=== PATIENT | female | born 1995 | race Caucasian/White ===

== ENCOUNTER 2018-01-20 07:10 | Emergency (ER) | payer MEDICAID, SELFPAY ==
[2018-01-20 07:11] VITALS: BP 114/70; PULSE 82; RESP 14; TEMP 36.8; O2SAT 97; BMI 20.8
[2018-01-20 07:41] LABS: Absolute Lymphocyte Count 1.42 X10^3/ul (0.83-4.51); Absolute Neutrophil Count 6.2 X10^3/uL (2.0-7.7); Basophil# 0.02 X10^3/uL; Basophil% 0.2 % (0-1); Eosinophil# 0.04 X10^3/uL; Eosinophils% 0.5 % (0-5); Hematocrit 41.7 % (37-47); Hemoglobin 13.7 g/dl (12.0-15.0); Lymphocyte # 1.42 X10^3/ul (4.0); Lymphocyte % 16.6 % (19-41); Mean Corp Hgb Conc 32.9 g/gl (32-36); Mean Corpuscular Hgb 29.4 pg (27.0-32.0); Mean Corpuscular Volume 89.5 fL (81-99); Mean Platelet Vol. 8.7 fl (6.2-12.0); Monocyte# 0.84 X10^3/uL; Monocyte% 9.8 % (0-10); Neutrophil # 6.23 X10^3/uL (2.7-7.7); Neutrophil % 72.8 % (47-70); POSITIVE COUNT NO; POSITIVE DIFFERENTIAL NO; POSITIVE MORPHOLOGY NO; Platelet Count 252 K/mm3 (150-450); RBC Distribution Width CV 13.6 % (11.6-14.6); Red Blood Count 4.66 M/mm3 (4.2-5.4); White Blood Count 8.6 K/mm3 (4.4-11.0)
[2018-01-20 07:53] LABS: Anion Gap 6 (5-15); BUN 9 mg/dL (7-18); BUN/Creat Ratio 18.5 RATIO (10-20); Calcium,Total 8.4 mg/dL (8.5-10.1); Chloride 105 mmol/L (98-107); Creatinine, Serum 0.49 mg/dL (0.55-1.02); EST Glomerular Filtration Rate 166 mL/min (>60); Est Glom Filt Rate - Afr Amer 200 mL/min (>60); Estimated Creatinine Clearance 159.02 ml/min; Glucose 83 mg/dL (74-106); Potassium 3.6 mmol/L (3.5-5.1); Sodium Level 139 mmol/L (136-145)
[2018-01-20 08:15] LABS: Partial Thromboplast Time 30.1 Seconds (24.1-36.2); Prothrombin Time (Protime)PT. 13.5 SECONDS (11.7-14.9)
--- NOTE | 2018-01-20 08:57 | ED.VISSUMM ---
- ER Visit Summary Date of Service: 01/20/18 Chief Complaint: Abdominal pain, bruising easily and metallic taste History of Present Illness: The patient is a 22 F who presents with cramping abdominal pain for the past several days. Pain was worse last evening early this morning. The pain was associated with nausea without vomiting, diarrhea or constipation. She denies any black or maroon stool. She denies dysuria, frequency, urgency or hematuria. She denies any food intolerance. There is no history of IBS or IBD. She denies mucus or blood in her stool. She is presently on no medication. She also reports bruising easily. There is no known history of trauma. She does not have a primary care physician. 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 She denies fever, chills or night sweats. She denies weight gain or weight loss. She denies any change in vision, double vision or loss of vision. She denies earache, runny nose, postnasal drainage or sore throat. She denies any chest pain, palpitations or rapid heart rate. She denies shortness of breath, cough, dyspnea on exertion or orthopnea. She denies dysuria, frequency, urgency hematuria. She denies myalgias, arthralgias or neck or back pain. She denies rash. She denies headache, paresthesia, anesthesia or motor weakness. She denies any allergic type symptoms. Physical Examination: Patient is a pleasant 22-year-old woman who appears in no distress. Vital signs are normal. She is afebrile. Head is atraumatic normocephalic. Pupils are equal round reactive. Extraocular muscles are intact. TMs are pearly white with landmarks noted. Nares patent with no drainage. Posterior pharynx without erythema or exudate. Uvula is midline. There is no dysphonia or dysphasia. Trachea is midline. There is no stridor with auscultation of the neck. Heart is regular without murmur, gallop or rub. S1 and S2 are normal. Lungs are clear to auscultation with good movement of air bilaterally. Abdomen is soft and nontender. There is no guarding or peritoneal findings. There is no palpable pulsatile mass. There is no abdominal bruit. Rodriguez sign is negative. Negative Rovsing sign. There is no evidence of inguinal or umbilical hernia. She does have an umbilical piercing. She is tanned and there is no pagan line noted. She is alert oriented with a nonfocal neurologic exam. She does have several bruises lower extremity, upper extremity and gluteal region. Test Results: CBC is unremarkable and specifically platelet count. PT PTT are normal. Because of vague abdominal pain and back that she is tanned and has not been a tanning elizondo electrode panel was obtained looking for evidence of hyponatremia/hyperkalemia. Emergency Department Course and Treatment: To evaluate her bruising easily CBC and coags were obtained. Treatment Plan: Instructed to follow-up her her doctor that was assigned to her by [facility], her insurance carrier. Disposition: Discharged to home with appropriate home-going instruction and outpatient follow-up Impression: 1. Abdominal pain of unknown etiology 2. Bruising unknown etiology 3. Metallic taste This note was generated with [employer] dictation software. It may contain incorrect words, spelling, and punctuation that were not noted in review of the chart prior to signing ED Disposition - Plan for ED Patient: Disposition: Home or Assisted Living Chief Complaint: General Illness Instructions: ED Abdominal Pain Unkn Cause Referrals: Care Physician,No Primary [Primary Care Provider] - Additional Instructions: Contact the physician that is on your insurance card. You should follow-up in 3-5 days if there is no improvement.
--- NOTE | 2018-01-20 09:05 | ED.DCSUM_ITS ---
- ER Visit Summary Date of Service: 01/20/18 Chief Complaint: Abdominal pain, bruising easily and metallic taste History of Present Illness: The patient is a 22 F who presents with cramping abdominal pain for the past several days. Pain was worse last evening early this morning. The pain was associated with nausea without vomiting, diarrhea or constipation. She denies any black or maroon stool. She denies dysuria, frequency, urgency or hematuria. She denies any food intolerance. There is no history of IBS or IBD. She denies mucus or blood in her stool. She is presently on no medication. She also reports bruising easily. There is no known history of trauma. She does not have a primary care physician. 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 She denies fever, chills or night sweats. She denies weight gain or weight loss. She denies any change in vision, double vision or loss of vision. She denies earache, runny nose, postnasal drainage or sore throat. She denies any chest pain, palpitations or rapid heart rate. She denies shortness of breath, cough, dyspnea on exertion or orthopnea. She denies dysuria, frequency, urgency hematuria. She denies myalgias, arthralgias or neck or back pain. She denies rash. She denies headache, paresthesia, anesthesia or motor weakness. She denies any allergic type symptoms. Physical Examination: Patient is a pleasant 22-year-old woman who appears in no distress. Vital signs are normal. She is afebrile. Head is atraumatic normocephalic. Pupils are equal round reactive. Extraocular muscles are intact. TMs are pearly white with landmarks noted. Nares patent with no drainage. Posterior pharynx without erythema or exudate. Uvula is midline. There is no dysphonia or dysphasia. Trachea is midline. There is no stridor with auscultation of the neck. Heart is regular without murmur, gallop or rub. S1 and S2 are normal. Lungs are clear to auscultation with good movement of air bilaterally. Abdomen is soft and nontender. There is no guarding or peritoneal findings. There is no palpable pulsatile mass. There is no abdominal bruit. Rodriguez sign is negative. Negative Rovsing sign. There is no evidence of inguinal or umbilical hernia. She does have an umbilical piercing. She is tanned and there is no pagan line noted. She is alert oriented with a nonfocal neurologic exam. She does have several bruises lower extremity, upper extremity and gluteal region. Test Results: CBC is unremarkable and specifically platelet count. PT PTT are normal. Because of vague abdominal pain and back that she is tanned and has not been a tanning elizondo electrode panel was obtained looking for evidence of hyponatremia/hyperkalemia. Emergency Department Course and Treatment: To evaluate her bruising easily CBC and coags were obtained. Treatment Plan: Instructed to follow-up her her doctor that was assigned to her by [facility], her insurance carrier. Disposition: Discharged to home with appropriate home-going instruction and outpatient follow-up Impression: 1. Abdominal pain of unknown etiology 2. Bruising unknown etiology 3. Metallic taste This note was generated with [employer] dictation software. It may contain incorrect words, spelling, and punctuation that were not noted in review of the chart prior to signing ED Disposition - Plan for ED Patient: Disposition: Home or Assisted Living Chief Complaint: General Illness Instructions: ED Abdominal Pain Unkn Cause Referrals: Care Physician,No Primary [Primary Care Provider] - Additional Instructions: Contact the physician that is on your insurance card. You should follow-up in 3 -5 days if there is no improvement.
[2018-01-20 09:26] VITALS: BP 113/76; PULSE 83; RESP 14; O2SAT 99
== END 2018-01-20 09:32 | disposition home or self-care (01) ==
PROVIDERS: Emergency Provider Emergency Medicine
DX: R10.9 Unspecified abdominal pain (principal); R43.8 Other disturbances of smell and taste; R23.3 Spontaneous ecchymoses
CPT/HCPCS: 80048; 85025; 85610; 85730; 99283; A4216

== ENCOUNTER → 2018-04-13 09:20 | Outpatient (CLI) | payer MEDICAID, SELFPAY ==
[2018-04-13 11:25] LABS: hCG Titer Quant., Serum < 1 mIU/mL (<9 non-preg)
[2018-04-13 15:49] LABS: Neisserai gonorrhoeae by PCR Negative (Negative); Probe Check PASS
[2018-04-13 15:51] LABS: Chlamydia Trachomatis by PCR POSITIVE (Negative)
[2018-04-14 09:29] LABS: HIV - WCH Non-Reactive (Nonreactive)
[2018-04-15 10:11] LABS: HEPATITIS B SURFACE AG Negative (Negative); Hep C Antibodies <0.1 s/co ratio (0.0-0.9)
== END ==
PROVIDERS: Visit Provider Obstetrics & Gynecology
DX: Z11.3 Encounter for screening for infections with a predominantly sexual mode of transmission (principal)
CPT/HCPCS: 36415; 84702; 86703; 86803; 87340; 87491; 87591

== ENCOUNTER 2018-04-14 05:44 | Emergency (ER) | payer MEDICAID, SELFPAY ==
[2018-04-14] VITALS (9 sets, daily range): BP systolic 90–113; BP diastolic 48–97; PULSE 57–87; RESP 14–20; TEMP 36; O2SAT 97–100; BMI 22.8
--- NOTE | 2018-04-14 06:18 | EKG12_ITS ---
Test Reason : CP Blood Pressure : / mmHG Vent. Rate : 051 BPM Atrial Rate : 051 BPM P-R Int : 162 ms QRS Dur : 082 ms QT Int : 476 ms P-R-T Axes : 057 068 068 degrees QTc Int : 438 ms Sinus bradycardia with sinus arrhythmia Abnormal ECG Confirmed by NING MCCLURE ([id number]), school photograph editor MERCEDEZ RANDALL ([id number]) on 04/26/2018 5:43:27 PM Referred By: KOJO Confirmed By:NING MCCLURE
--- NOTE | 2018-04-14 06:18 | RAD_ITS ---
STUDY: X-RAY CHEST REASON FOR EXAM: Female, 22 years old. Chest pain, dizziness x3 hours TECHNIQUE: PA and lateral views of the chest. COMPARISON: None. FINDINGS: Minor atelectasis versus focal bronchial prominence in the right base on frontal view only, not visualized on lateral view. There is no demonstrated pleural abnormality. Normal size heart. Normal mediastinum and johnnie. Normal visualized pulmonary arteries. Normal visualized aortic arch and descending thoracic aorta. Normal visualized thoracic spine. Normal visualized ribs, clavicles, and shoulders. There is no demonstrated abnormality of the visualized soft tissue structures of the upper abdomen. RAD/Chest PA and Lateral IMPRESSION: Atelectasis of focal bronchial inflammation right base. Electronically Signed: Divina Zeng MD at 7:32 EDT , Service support ,
[2018-04-14] MEDS: Aspirin 81 MG TAB.CHEW 324 MG PO (06:29)
[2018-04-14 06:42] LABS: Absolute Lymphocyte Count 2.16 X10^3/ul (0.83-4.51); Absolute Neutrophil Count 7.9 X10^3/uL (2.0-7.7); Basophil# 0.03 X10^3/uL; Basophil% 0.3 % (0-1); Eosinophil# 0.12 X10^3/uL; Eosinophils% 1.1 % (0-5); Hematocrit 39.6 % (37-47); Hemoglobin 13.3 g/dl (12.0-15.0); Lymphocyte # 2.16 X10^3/ul (4.0); Lymphocyte % 19.4 % (19-41); Mean Corp Hgb Conc 33.6 g/gl (32-36); Mean Corpuscular Hgb 29.6 pg (27.0-32.0); Mean Corpuscular Volume 88.2 fL (81-99); Mean Platelet Vol. 9.1 fl (6.2-12.0); Monocyte# 0.89 X10^3/uL; Neutrophil # 7.94 X10^3/uL (2.7-7.7); Platelet Count 297 K/mm3 (150-450); RBC Distribution Width CV 12.7 % (11.6-14.6); RBC Distribution Width SD 40.2 fl (35.1-43.9); Red Blood Count 4.49 M/mm3 (4.2-5.4); White Blood Count 11.2 K/mm3 (4.4-11.0)
[2018-04-14 06:46] LABS: POSITIVE COUNT NO; POSITIVE DIFFERENTIAL NO; POSITIVE MORPHOLOGY NO
[2018-04-14 07:00] LABS: Anion Gap 8 (5-15); BUN 11 mg/dL (7-18); BUN/Creat Ratio 20.5 RATIO (10-20); Calcium,Total 8.4 mg/dL (8.5-10.1); Chloride 105 mmol/L (98-107); Creatinine, Serum 0.54 mg/dL (0.55-1.02); EST Glomerular Filtration Rate 147 mL/min (>60); Est Glom Filt Rate - Afr Amer 178 mL/min (>60); Estimated Creatinine Clearance 138.72 ml/min; Glucose 93 mg/dL (74-106); Potassium 3.3 mmol/L (3.5-5.1); Sodium Level 142 mmol/L (136-145)
--- NOTE | 2018-04-14 07:17 | CT_ITS ---
STUDY: CTA CHEST REASON FOR EXAM: Female, 22 years old. Chest pain. Dizziness. RADIATION DOSAGE (If Supplied By Facility): CTDIvol = ( 6.63 ) mGy, DLP = ( 169.94 ) mGycm TECHNIQUE: The examination was performed with the intravenous administration of 75 ml of Isovue 370 contrast material. Post-processing of the angiographic images was performed, with multiplanar reformation and 3D reconstruction. Individualized dose optimization techniques were used for this CT. COMPARISON: Comparison is made with prior chest radiograph done earlier today. FINDINGS: Normal enhancement of the main pulmonary artery and right and left pulmonary arteries. Normal enhancement of the bilateral peripheral pulmonary arteries. There is no demonstrated pulmonary embolism. Normal thoracic aorta and visualized great vessels. There is no demonstrated aortic dissection. Normal heart and pericardium. Normal mediastinum. Normal hilar regions. Normal visualized trachea and bronchi. The lungs are well expanded. Normal pulmonary parenchyma. Normal pleura. Normal chest wall structures. Normal osseous structures. Normal visualized upper abdomen. CT/CTA Chest W/WO Contrast IMPRESSION: Normal CTA chest examination, without a demonstrated pulmonary embolism or arterial dissection. Electronically Signed: Gregory Valenzuela MD at 9:11 EDT Tel [phone], Service support ,
--- NOTE | 2018-04-14 07:18 | ED.VISSUMM ---
- ER Visit Summary Date of Service: 04/14/18 Chief Complaint: Chest pain History of Present Illness: The patient is a 22 F who presents with chest pain. This began abruptly about 2 hours prior to presentation while sleeping. She describes it as dull and aching. It is diffusely all the way around her chest radiating into the back. It was severe, 9 out of 10 at its worst but is currently minimal at 1 out of 10. No exacerbating or relieving factors. She did not take any medications or do anything specific at home but began to improve on its own. She does report associated shortness of breath lightheadedness and states she had near syncope with this but did not actually lose consciousness. No recent illness. No fevers nausea vomiting diarrhea. She denies any recent travel surgery mobilization DVT PE known coagulopathies or cancer. No diabetes hypertension hyperlipidemia or smoking history. Physical Examination: Afebrile blood pressure 99/79 vitals otherwise unremarkable Moist mucous membranes Heart regular rate and rhythm Lungs are clear Abdomen soft Extremities nontender without edema symmetric radial pulses Alert Test Results: EKG shows sinus bradycardia at a rate of 51 with septal Q waves. Labs are notable for white count 11.2, potassium 3.3. Chest x-ray on my review shows no acute process. Emergency Department Course and Treatment: Aspirin, placed on monitoring analyst. Her labs are essentially unremarkable. At the time of this dictation a CTA of the chest is pending given her report of shortness of breath and near syncope. Patient signed out to the oncoming physician to follow-up on results and reevaluate. Treatment Plan: [] Disposition: Pending CTA Impression: Chest pain This note was generated with [employer] dictation software. It may contain incorrect words, spelling, and punctuation that were not noted in review of the chart prior to signing ED Disposition - Plan for ED Patient: Chief Complaint: Chest Pain Referrals: Care Physician,No Primary [Primary Care Provider] -
--- NOTE | 2018-04-14 07:21 | ED.DCSUM_ITS ---
- ER Visit Summary Date of Service: 04/14/18 Chief Complaint: Chest pain History of Present Illness: The patient is a 22 F who presents with chest pain. This began abruptly about 2 hours prior to presentation while sleeping. She describes it as dull and aching. It is diffusely all the way around her chest radiating into the back. It was severe, 9 out of 10 at its worst but is currently minimal at 1 out of 10. No exacerbating or relieving factors. She did not take any medications or do anything specific at home but began to improve on its own. She does report associated shortness of breath lightheadedness and states she had near syncope with this but did not actually lose consciousness. No recent illness. No fevers nausea vomiting diarrhea. She denies any recent travel surgery mobilization DVT PE known coagulopathies or cancer. No diabetes hypertension hyperlipidemia or smoking history. Physical Examination: Afebrile blood pressure 99/79 vitals otherwise unremarkable Moist mucous membranes Heart regular rate and rhythm Lungs are clear Abdomen soft Extremities nontender without edema symmetric radial pulses Alert Test Results: EKG shows sinus bradycardia at a rate of 51 with septal Q waves. Labs are notable for white count 11.2, potassium 3.3. Chest x-ray on my review shows no acute process. Emergency Department Course and Treatment: Aspirin, placed on personnel monitor. Her labs are essentially unremarkable. At the time of this dictation a CTA of the chest is pending given her report of shortness of breath and near syncope. Patient signed out to the oncoming physician to follow-up on results and reevaluate. Treatment Plan: [] Disposition: Pending CTA Impression: Chest pain This note was generated with [employer] dictation software. It may contain incorrect words, spelling, and punctuation that were not noted in review of the chart prior to signing ED Disposition - Plan for ED Patient: Chief Complaint: Chest Pain Referrals: Care Physician,No Primary [Primary Care Provider] -
--- NOTE | 2018-04-14 10:21 | ECHOD_ITS ---
Reason For Study: Chest pain Procedure This was a 2D Doppler, Color Flow transthoracic echocardiogram. Exam performed portable in ED. Left Ventricle Normal size and thickness. The estimated ejection fraction is 65 %. Normal diastology for age. No regional wall motion abnormalities noted. Right Ventricle Normal size and thickness. Normal systolic function. Atria Normal left atrium. Normal right atrium. Normal atrial septum. Mitral Valve The mitral valve is structurally normal. No prolapse or stenosis seen. Tricuspid Valve Normal tricuspid valve. Unable to estimate RV systolic pressure due to inadequate jet, pulmonary artery pressure probably normal. Aortic Valve Normal aortic valve. Trisinus/trileaflet aortic valve. Pulmonic Valve Normal pulmonic valve. Trivial pulmonic valve insufficiency. Great Vessels Normal aortic root. Normal arch. Normal inferior vena cava. Inferior vena cava collapse with sniff. Pericardium/Pleural No pericardial effusion. MMode/2D Measurements & Calculations LVIDd: 4.0 cm IVSd: 0.95 cm Ao root diam: 2.5 cm LVIDs: 2.2 cm LVPWd: 0.90 cm LA dimension: 2.9 cm RVDd: 2.5 cm FS: 44.8 % LAV(MOD-bp): 26.5 ml LA A4 area: 10.8 cm2 RA A4 area: 8.3 cm2 LAV(MOD-bp) Indexed: 16.1 ml/m2 LAV(MOD-sp2): 31.3 ml LAV(MOD-sp4): 20.3 ml Doppler Measurements & Calculations MV E max heron: 89.2 cm/sec Lat Peak E' Heron: 18.2 cm/sec Med Peak E' Heron: 13.1 cm/sec MV A max heron: 48.0 cm/sec E/E' lat: 4.9 E/E' med: 6.8 MV E/A: 1.9 Ao V2 max: 142.9 cm/sec LV V1 max: 119.6 cm/sec PA V2 max: 106.9 cm/sec Ao max P.2 mmHg LV V1 max P.7 mmHg Interpretation Summary The estimated ejection fraction is 65 %. Normal diastology for age. Unable to estimate RV systolic pressure due to inadequate jet, pulmonary artery pressure probably normal. There is no comparison study available. Ordering Physician: Germaine Post Performed By: Ana Fulton RDCS
[2018-04-14 11:02] LABS: Amphetamine Urine VISTA NEGATIVE (<1000 ng/mL); Barbiturate Urine VISTA NEGATIVE (< 200 ng/mL); Benzodiazepine Urine VISTA NEGATIVE (< 200 ng/mL); Cocaine Urine VISTA NEGATIVE (< 300 ng/mL); Ecstacy Urine VISTA NEGATIVE (< 500 ng/mL); Methadone Urine VISTA NEGATIVE (< 300 ng/mL); PCP Urine VISTA NEGATIVE (< 25 ng/mL); THC Urine VISTA POSITIVE (< 50 ng/mL); Vista UDS pH Range 7
[2018-04-14 11:04] LABS: Erythrocyte Sedimentation Rate 1 mm/hr (0-20)
--- NOTE | 2018-04-14 13:47 | ED.DEP ---
ED Disposition - Plan for ED Patient: Chief Complaint: Chest Pain Instructions: ED Chest Pain Atypical Unkn Cause Referrals: Care Physician,No Primary [Primary Care Provider] - Ping Kaba MD [STAFF PHYSICIAN] -
== END 2018-04-14 14:07 | disposition home or self-care (01) ==
PROVIDERS: Emergency Medicine; Emergency Provider Emergency Medicine
DX: R07.9 Chest pain, unspecified (principal)
CPT/HCPCS: 71046; 71275; 80048; 80307; 84484; 85025; 85652; 93005; 93306; 99285; Q9967; A4216

== ENCOUNTER → 2018-07-01 09:54 | Outpatient (CLI) | payer MEDICAID, SELFPAY ==
[2018-07-01 18:29] LABS: Chlamydia Trachomatis by PCR Negative (Negative); Neisserai gonorrhoeae by PCR Negative (Negative); Probe Check PASS; Sample Adequacy Control PASS; Specimen Processing Control PASS
== END ==
PROVIDERS: Visit Provider Obstetrics & Gynecology
DX: A56.09 Other chlamydial infection of lower genitourinary tract (principal); Z11.3 Encounter for screening for infections with a predominantly sexual mode of transmission
CPT/HCPCS: 87491; 87591

== ENCOUNTER → 2018-10-20 14:15 | Outpatient (CLI) | payer MEDICAID, SELFPAY ==
[2018-10-20 18:01] LABS: Chlamydia Trachomatis by PCR Negative (Negative); Neisserai gonorrhoeae by PCR Negative (Negative); Probe Check PASS; Sample Adequacy Control PASS; Specimen Processing Control PASS
[2018-10-28 07:41] LABS: HPV HC, High Risk Negative (Negative)
[2018-10-28 07:47] LABS: HPV Reflexed? YES, CHARGE PATIENT
== END ==
PROVIDERS: Visit Provider Obstetrics & Gynecology
DX: Z11.3 Encounter for screening for infections with a predominantly sexual mode of transmission (principal); Z12.4 Encounter for screening for malignant neoplasm of cervix
CPT/HCPCS: 87491; 87591; 87624; 88175; G0145

== ENCOUNTER 2020-03-17 21:58 | Emergency (ER) | payer MEDICAID, SELFPAY ==
[2020-03-17 21:59] VITALS: BP 108/82; PULSE 86; RESP 14; TEMP 36.4; O2SAT 98; BMI 21.6
--- NOTE | 2020-03-17 22:40 | ED.DCSUM_ITS ---
- ER Visit Summary Date of Service: 03/17/20 Chief Complaint: Dental pain History of Present Illness: The patient is a 24 F with no primary care physician. She reports she has pain in her right maxillary first molar that began 3 days ago. She states an aching pain is 10 of 10 at worst 3-10 currently. Is worsened by eating, hot, and cold temperatures. Is relieved by ibuprofen. She is been taking penicillin for the past 3 days. Patient reports that she has had chills. She has generalized weakness and just feels tired in general. Patient does work at [employer]. She denies sick contacts. She has been doing self-isolation otherwise. She denies any fever, cough, sore throat, or shortness of breath. Physical Examination: Vitals: Stable. Afebrile. Mouth: No trismus. No edema of the floor of the mouth. Pain with percussion of right maxillary first molar and there are obvious cavities at the posterior portion of this tube. There is no focal abscess General: A&O x 3. NAD. Cardiovascular exam: Regular rate and rhythm, no murmur, rub or gallop. Respiratory exam: Clear to auscultation bilaterally. No wheezes or stridor. Abdominal exam: Soft, nontender, nondistended, normal bowel sounds. No peritoneal signs. Extremity: No clubbing, cyanosis, or edema. Emergency Department Course and Treatment: I offered to place an IV and obtain blood work and give her fluids. She has refused this. She just was nervous about the possibility of COVID-19. I discussed with her that I cannot rule this out. However, she does not meet criteria to be tested for this. Treatment Plan: Patient be discharged instructions to follow-up with her dentist as soon as possible. Return to the emergency department for any worsening symptoms. Disposition: To home in improved and stable condition. Impression: 1. Dental pain. This note was generated with [employer] dictation software. It may contain incorrect words, spelling, and punctuation that were not noted in review of the chart prior to signing ED Disposition - Plan for ED Patient: Disposition: Home or Assisted Living Instructions: ED Tooth Pain Referrals: Dentist,Your [STAFF PHYSICIAN] - As soon as possible
[2020-03-17 23:21] VITALS: RESP 16
== END 2020-03-17 23:23 | disposition home or self-care (01) ==
LOC: ED 23:17
PROVIDERS: Emergency Provider Emergency Medicine
DX: K08.89 Other specified disorders of teeth and supporting structures (principal); Z72.0 Tobacco use
CPT/HCPCS: 99283

== ENCOUNTER 2020-07-09 10:30 | Emergency (ER) | payer MEDICAID, SELFPAY ==
[2020-07-09 10:32] VITALS: BP 147/81; PULSE 77; RESP 17; TEMP 36.8; O2SAT 100; BMI 24.1
[2020-07-09] MEDS: Ibuprofen 600 MG Tablet PO (11:21)
[2020-07-09 11:40] LABS: Bacteria 0 SEEN /hpf (None Seen); Mucous, Urine 0 SEEN /hpf (<or=2+); Red Blood Cells-Urine 0 SEEN /hpf (0-5); White Blood Cells 0 SEEN /hpf (0-5)
--- NOTE | 2020-07-09 11:57 | ED.DCSUM_ITS ---
- ER Visit Summary Date of Service: 07/09/20 Chief Complaint: Back pain History of Present Illness: The patient is a 25 F with no primary care physician. She reports that she has lower back pain that began a week ago and is gradually worsened. Is a dull, aching pain that is 8 out of 10 at worst and 4-10 currently. Is worse by movement or bending. Is relieved by remaining still. She taken ibuprofen Aleve without relief. There is no radiation to her legs. No numbness or weakness in her legs. No problems with her bowels or bladder. No groin numbness. Patient denies any recent trauma. No fall, MVA, or change in activity. She denies red flags. Physical Examination: Vitals: Stable. Afebrile. General: A&O x 3. NAD. Cardiovascular exam: Regular rate and rhythm, no murmur, rub or gallop. Respiratory exam: Clear to auscultation bilaterally. No wheezes or stridor. Abdominal exam: Soft, nontender, nondistended, normal bowel sounds. No peritoneal signs. Back: Diffuse moderate tenderness to palpation over the lumbar spine and the paraspinous musculature in the lumbar region. No point tenderness. Negative straight leg bilaterally. 5/5 DF, PF, EHL bilaterally. Normal sensation to light touch throughout. Extremity: No clubbing, cyanosis, or edema. Test Results: Urinalysis shows no evidence of infection. test is negative. Emergency Department Course and Treatment: An OARRS report was obtained which was negative. She was given a dose of ibuprofen here she drove. She is resting more comfortably. Treatment Plan: Patient be discharged with [place] and naproxen. Symptomatic management was discussed. Instructed to follow-up with Dr. Sutton in 1 week if not improving. The signs and symptoms of cauda equina syndrome were discussed. Patient is instructed to return for these. Disposition: To home in improved and stable condition. Impression: 1. Low back pain. This note was generated with [employer] dictation software. It may contain incorrect words, spelling, and punctuation that were not noted in review of the chart prior to signing ED Disposition - Plan for ED Patient: Instructions: ED Back Pain Acute or Chronic Prescriptions: Naproxen [Naprosyn] 500 mg PO BID #14 tablet Hydrocodone Bitart/Apap 5-325 [[place] 5MG-325MG] 1 tablet PO Q4H PRN PRN 2 Days #10 tablet PRN Reason: Pain Referrals: Momo Cooper MD [STAFF PHYSICIAN] - 1 Week if not improving
[2020-07-09 12:01] LABS: Internal QC Validated? YES +Cl - CLEAR BKGD; Pregnancy, Urine Negative Negative
[2020-07-09 12:02] LABS: Color, Urine Yellow (Yellow); Glucose, Dipstick Normal (Normal); Ketone-Dipstick Negative (Negative); Leukocyte Esterase-Dipstick Negative /ul (Negative); Nitrite-Dipstick Negative (Negative); Occult Blood-Urine Negative /ul (Negative); Protein-Dipstick Negative (Negative); Urine Bilirubin Dipstick Negative (Negative); Urine Clarity Clear (Clear); Urine Urobilinogen Normal (Normal)
[2020-07-09 12:18] LABS: Squamous Epithelial Cells - UA 0-5 SEEN /hpf (5-10)
== END 2020-07-09 12:58 | disposition home or self-care (01) ==
LOC: ED 11:33
PROVIDERS: Emergency Provider Emergency Medicine
DX: M54.5 Low back pain (principal); Z87.891 Personal history of nicotine dependence
CPT/HCPCS: 81001; 81025; 99283

== ENCOUNTER 2022-03-28 23:35 | Emergency (ER) | payer MEDICAID, SELFPAY ==
[2022-03-28 23:36] VITALS: BP 130/98; PULSE 107; RESP 16; TEMP 36.9; O2SAT 97; BMI 25.6
[2022-03-29] MEDS: Lidocaine 1% /Epi 1:100 (20ml) 20 ML Vial INFILT (02:03)
[2022-03-29] MEDS: Lidocaine/Epi/Tetracaine 50 ML 1 APPLIC TOPICAL (02:03)
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
[2022-03-29 02:43] VITALS: PULSE 107; RESP 16; O2SAT 97
== END 2022-03-29 02:44 | disposition home or self-care (01) ==
PROVIDERS: Emergency Provider Student in an Organized Health Care Education/Training Program; Visit Provider Student in an Organized Health Care Education/Training Program
DX: S01.01XA Laceration without foreign body of scalp, initial encounter (principal); Y04.8XXA Assault by other bodily force, initial encounter; F17.210 Nicotine dependence, cigarettes, uncomplicated; Y93.9 Activity, unspecified; Y99.9 Unspecified external cause status; Y92.9 Unspecified place or not applicable
CPT/HCPCS: 12001; 99284

== ENCOUNTER 2023-02-16 11:43 | Emergency (ER) | payer MEDICAID, SELFPAY ==
[2023-02-16 11:44] VITALS: BP 124/94; PULSE 102; RESP 16; TEMP 36.8; O2SAT 98; BMI 23.2
--- NOTE | 2023-02-16 12:09 | ED.VIS.DENTA ---
HPI History of Present Illness Chief Complaint: Dental Informant: patient Onset/Context/Timing Onset: Today Narrative Narrative: Patient presents secondary to facial swelling. She states she felt well when she went to bed last night but woke this morning with right-sided facial swelling. She states she knows she is a bad tooth on that side but really has not been bothering her. She called this morning to get a dentist appointment and will be seen on the sixth. PFS PFS Medical History no medical history no medical history Home Medications penicillin V potassium 250 mg tablet 500 mg PO 4X/DAY #40 tabs 02/16/23 [Rx Last Taken Unknown] Allergy/AdvReac Type Severity Reaction Status Date / Time No Known Allergies Allergy Verified 02/16/23 11:45 Social History Smoking Status: Current every day smoker tobacco type: cigarettes ROS ROS ED Constitutional Constitutional ED: Denies chills or fever(s) Eyes Eyes: Denies change in vision or discharge from eye(s) ENT ENT ED: Denies discharge from eye(s), rhinorrhea or sore throat Cardiovascular Cardiovascular: Denies chest pain Respiratory/Chest Respiratory/Chest: Denies cough or dyspnea Gastrointestinal Gastrointestinal: Denies abdominal pain, nausea or vomiting Musculoskeletal Musculoskeletal: Denies back pain or extremity pain Integumentary Reports other Details: Facial swelling ; Denies Abrasions or rash Neurologic Neurologic: Denies headache(s) or weakness Allergic/Immunologic Allergic/Immunologic ED: Denies lip swelling or urticaria EXAM Physical Exam Const Vital Signs: 02/16/23 11:44 Temperature 98.3 F Temperature Source Temporal Pulse Rate 102 H Respiratory Rate 16 Blood Pressure 124/94 H Blood Pressure Mean 104 Pulse Ox 98 Oxygen Delivery Method Room Air Positive well nourished and well developed Constitutional Narrative: Swelling noted over the right maxilla. No overlying skin change. No significant erythema or warmth. General Appearance ED: well developed HEENT Reports normocephalic and head/scalp atraumatic HEENT Narrative: Intraoral examination reveals tooth broken at gumline of right maxillary first molar. There is mild surrounding gum edema. Posterior pharynx exam is normal. Eyes PERRL and EOMs intact bilaterally Neck supple Chest Wall inspection of chest normal and palpation of chest normal Resp normal respiratory effort and clear to auscultation bilaterally Cardio regular rate and regular rhythm GI Palpation: soft Extremity normal to inspection Neuro oriented x3 and no sensory deficits noted Sensorium / Orientation: alert Motor Exam: strength 5/5 throughout Psych mental status grossly normal MDM MDM MDM Narrative Medical decision making narrative: Patient will treat with a course of Pen-Vee K, first dose given here. She has an appointment to see her dentist in 3 days. Return instructions provided. Discharge Plan Triage Chief Complaint: Dental ED Provider: Sherry Butterfield Dx/Rx/DC Orders Clinical Impression: Odontalgia, Dental infection Instructions: ED Dental Abscess Prescriptions: New penicillin V potassium 250 mg tablet 500 mg PO 4X/DAY Qty: 40 0RF Primary Care Provider: Care Physician,No Primary Referrals: Care Physician,No Primary [Primary Care Provider] - Activity Restrictions/Additional Instructions: Follow-up with your dentist on the sixth as scheduled. Disposition Disposition: Home, Self Care
[2023-02-16] MEDS: Penicillin Vk 250 MG Tablet 500 MG PO (12:18)
== END 2023-02-16 12:30 | disposition home or self-care (01) ==
LOC: ED 12:24
PROVIDERS: Emergency Provider Emergency Medicine; Visit Provider Emergency Medicine
DX: K04.7 Periapical abscess without sinus (principal); F17.210 Nicotine dependence, cigarettes, uncomplicated
CPT/HCPCS: 99283

== ENCOUNTER 2023-02-17 14:32 | Emergency (ER) | payer MEDICAID, SELFPAY ==
[2023-02-17 14:33] VITALS: BP 109/84; PULSE 90; RESP 18; TEMP 36.4; O2SAT 97; BMI 25.4
[2023-02-17] MEDS: Naproxen 250 MG Tablet 500 MG PO (15:24)
[2023-02-17] MEDS: Clindamycin HCl 150 MG Capsule 300 MG PO (15:24)
[2023-02-17] MEDS: HYDROcodone Bitartrate/Apap 5/325 Tablet PO (15:24)
--- NOTE | 2023-02-17 15:28 | ED.VIS.DENTA ---
HPI History of Present Illness Chief Complaint: Cellulitis Detail of Chief Complaint: Dental abscess Informant: patient and other (Per ER record from yesterday) Onset/Context/Timing Onset: Days Context: Sudden Onset Timing: Continuous Quality: Pain Location: Right maxillary region Current Severity: Moderate Maximum Severity: Severe Worsened by: Palpation Associated Symptoms Assocated Symptom - Dental: face swelling; Negative for fever, jaw swelling, cold sensitivity or hot sensitivity Narrative Narrative: Patient is a 27-year-old female who was seen yesterday and placed on Pen-Vee K for a dental infection. She has an appointment to be seen by dentist. She denies history rheumatic fever, heart murmur, SBE or being immune suppressed. She denies difficulty opening or closing her mouth. She denies subjective or objective fever. She denies skin lesions. She denies ocular complaints. She denies rhinorrhea, congestion, postnasal drainage or sore throat. She denies difficulty swallowing liquids or solids. She denies change in voice. Prior similar symptoms: Yes Recent Illness/Hospitalization: Yes PFSH PFSH Home Medications penicillin V potassium 250 mg tablet 500 mg PO 4X/DAY #40 tabs 02/16/23 [Rx Last Taken Unknown] clindamycin HCl 300 mg capsule (Cleocin HCl) 300 mg PO Q6H #28 CAPSULES 02/17/23 [Rx Last Taken Unknown] hydrocodone-acetaminophen 5-325mg 5mg-325mg 1 tab PO Q4H PRN PRN Pain 2 days #10 TABLETS 02/17/23 [Rx Last Taken Unknown] ibuprofen 600 mg tablet 600 mg PO Q6H PRN PRN pain #20 TABLETS 02/17/23 [Rx Last Taken Unknown] Allergy/AdvReac Type Severity Reaction Status Date / Time No Known Allergies Allergy Verified 02/17/23 14:33 Social History Smoking Status: Current every day smoker tobacco type: cigarettes ROS ROS ED Constitutional Constitutional ED: Denies chills, fever(s), subjective or sweats Eyes Eyes: Denies blurry vision or change in vision ENT ENT ED: Denies ear pain, rhinorrhea or sore throat Cardiovascular Cardiovascular: Denies chest pain Respiratory/Chest Respiratory/Chest: Denies cough Gastrointestinal Gastrointestinal: Denies nausea or vomiting Integumentary Reports rash Psychiatric Psychiatric: Reports anxiety; Denies depression Hematologic/Lymphatic Hematologic/Lymphatic: Denies easy bleeding or easy bruising EXAM Physical Exam Const Vital Signs: 02/17/23 14:33 Temperature 97.5 F L Temperature Source Temporal Pulse Rate 90 Respiratory Rate 18 Blood Pressure 109/84 H Blood Pressure Mean 92 Pulse Ox 97 Oxygen Delivery Method Room Air Positive well nourished and well developed General Appearance ED: well developed and NAD HEENT Reports TM's clear HEENT Narrative: There is facial swelling noted on the right side over the right maxillary region. There is pain to the percussion. Right and left naris unremarkable. Patient has significant dental disease involving tooth #3 and 4. There is no evidence of a periodontal abscess. There is no evidence of facial cellulitis. There is no trismus. There is no dysphonia. There is no preauricular lymphadenopathy. Face and Sinus: sinuses nontender Tympanic Membrane ED: Yes TM's clear Mouth ED: Yes oral and palatal mucosa normal, Yes lips normal, Yes tongue normal, Yes salivary gland normal, No mouth trauma and Yes salivary gland abnormal Mouth: oral and palatal mucosa normal, lips normal, tongue normal, salivary gland normal, No mouth trauma and salivary gland abnormal Teeth and Gingiva: caries Throat: posterior oropharynx normal Eyes PERRL and EOMs intact bilaterally General Eye ED: Negative for pale conjunctiva or scleral icterus Neck no lymphadenopathy, supple and no JVD Resp normal respiratory effort, no retractions and clear to auscultation bilaterally Cardio regular rate, regular rhythm, S1 normal heart sound, S2 normal heart sound and no murmurs Neuro oriented x3, CN's II-XII intact bilaterally and moves all extremities Sensorium / Orientation: alert Psych mental status grossly normal Skin no rashes or lesions noted and no wounds Skin Narrative: Patient does have soft tissue swelling with no evidence of cellulitis. MDM MDM MDM Narrative Medical decision making narrative: Patient has a dental abscess. Patient was informed she needs to keep her appoint with a dentist for definitive care. Her antibiotic was changed to clindamycin. Since she was not prescribed pain medicine she was discharged with prescription for Naprosyn and hydrocodone. History & Record Review Additional record(s) reviewed:: Prior ED visit Discharge Plan Triage Chief Complaint: Cellulitis ED Provider: Pio Arambula Dx/Rx/DC Orders Clinical Impression: Abscess, dental, Dental caries into pulp Prescriptions: New clindamycin HCl [Cleocin HCl] 300 mg capsule 300 mg PO Q6H Qty: 28 0RF hydrocodone-acetaminophen [hydrocodone-acetaminophen] 5-325 mg tablet 1 tab PO Q4H PRN PRN (Reason: Pain) 2 Days Qty: 10 0RF ibuprofen 600 mg tablet 600 mg PO Q6H PRN PRN (Reason: pain) Qty: 20 0RF No Action penicillin V potassium 250 mg tablet 500 mg PO 4X/DAY Qty: 40 0RF Stand Alone Forms: ED Work / School Excuse Primary Care Provider: Care Physician,No Primary Referrals: Care Physician,No Primary [Primary Care Provider] - Dentist,Your [STAFF PHYSICIAN] - As soon as possible Disposition Disposition: Home, Self Care
== END 2023-02-17 15:41 | disposition home or self-care (01) ==
PROVIDERS: Emergency Provider Emergency Medicine; Visit Provider Emergency Medicine
DX: K04.7 Periapical abscess without sinus (principal); K02.9 Dental caries, unspecified; F17.210 Nicotine dependence, cigarettes, uncomplicated; F41.9 Anxiety disorder, unspecified
CPT/HCPCS: 99282

== ENCOUNTER 2023-03-06 01:19 | Emergency (ER) | payer MEDICAID, SELFPAY ==
[2023-03-06 01:20] VITALS: BP 118/81; PULSE 113; RESP 20; TEMP 36.8; O2SAT 93; BMI 21.4
--- NOTE | 2023-03-06 01:30 | RAD_ITS ---
EXAM: XR RIGHT ANKLE COMPLETE, 3 OR MORE VIEWS CLINICAL INDICATION: trauma TECHNIQUE: Frontal, lateral and oblique views of the right ankle. This report was created using [employer] report generation technology. COMPARISON: None. FINDINGS: BONES/JOINTS: Moderately distracted oblique fracture at the base of the medial malleolus, roughly 6 mm distracted. At least 2 tiny complex fracture fragments including a roughly 4 mm fragment projecting between the medial tibia at the fracture and the talar dome on the frontal view. Fracture of the lateral tibia with a triangular fracture fragment and disruption of the lateral ankle joint with widening of the expected region of the intraosseous ligament between the tibia and fibula. The fibular appears intact but mildly displaced. Multiple ossific densities anterior to the tibia-talar joint on the lateral view and mildly widened posterior joint. Proximal metatarsals are intact. SOFT TISSUES: Moderate soft tissue swelling. No radiopaque foreign body. RAD/Ankle min 3 Views IMPRESSION: Unstable configuration of right ankle fractures with multifocal articular involvement. Intra-articular fracture fragment. Presumed disruption of the interosseous ligament. Electronically Signed: Jyotsna Bentley MD at 1:49 EDT ,
--- NOTE | 2023-03-06 02:22 | EX.ED.DYSGE1 ---
HPI History of Present Illness Chief Complaint: Lower Extremity Injury Narrative Narrative: Presents with right ankle pain after a fall. She cannot bear any weight. No head injury no knee pain no proximal fibular tenderness. She is denying any other injuries. PFS PFSH Home Medications penicillin V potassium 250 mg tablet 500 mg PO 4X/DAY #40 tabs 02/16/23 [Rx Last Taken Unknown] clindamycin HCl 300 mg capsule (Cleocin HCl) 300 mg PO Q6H #28 CAPSULES 02/17/23 [Rx Last Taken Unknown] hydrocodone-acetaminophen 5-325mg 5mg-325mg 1 tab PO Q4H PRN PRN Pain 2 days #10 TABLETS 02/17/23 [Rx Last Taken Unknown] ibuprofen 600 mg tablet 600 mg PO Q6H PRN PRN pain #20 TABLETS 02/17/23 [Rx Last Taken Unknown] hydrocodone-acetaminophen 5-325mg 5mg-325mg 1 tab PO Q4H PRN PRN Pain 3 days #12 TABLETS 03/06/23 [Rx Last Taken Unknown] Allergy/AdvReac Type Severity Reaction Status Date / Time No Known Allergies Allergy Verified 02/17/23 14:33 Social History Smoking Status: Current every day smoker tobacco type: cigarettes ROS ROS ED ROS Narrative Past medical history: none Medications: Reviewed Social history: Noncontributory Review of systems: Musculoskeletal: Right ankle pain Skin: Slight abrasion over her thigh on the right Neurological: No weakness or paresthesias Hematologic: No easy bleeding or easy bruising EXAM Physical Exam Narrative Exam Narrative: Physical exam General: Patient does not appear in significant distress . Head: Normocephalic, Atraumatic Neck: No C-spine tenderness Cardiovascular: Normal distal pulses Back: Nontender, Normal Inspection. Extremities: Tenderness throughout the entire right ankle and some swelling. Distally neurovascularly intact Skin: Small right thigh abrasion laterally Neurological: Normal strength and sensation Const Vital Signs: 03/06/23 01:20 Temperature 98.2 F Temperature Source Temporal Pulse Rate 113 H Respiratory Rate 20 H Blood Pressure 118/81 H Blood Pressure Mean 93 Pulse Ox 93 Oxygen Delivery Method Room Air MDM MDM MDM Narrative Medical decision making narrative: I discussed the patient with boyfriend and friend in the room. They gave me some of the history. At this time patient has a right ankle fracture that is bimalleolar and somewhat unstable. Patient was splinted and I will give her crutches and a orthopedic referral. I will give her analgesia for home. I thought about talking to the orthopedic surgeon however its 2:25 AM in the middle of the night and I believe this can wait till the morning to the patient can call she will need surgery however I do not believe I need to wake up the orthopedic surgeon at this hour. Radiography Diagnostic Testing: Clinical Impression(s) from Imaging Studies Ankle X-Ray 03/06/23 01:30 IMPRESSION: Unstable configuration of right ankle fractures with multifocal articular involvement. Intra-articular fracture fragment. Presumed disruption of the interosseous ligament. Electronically Signed: Jyotsna Bentley MD at 1:49 EDT , X-ray read by me as a bimalleolar fracture however it appears unstable and may be a try mall equivalent Procedures Other Procedures Procedure(s): Splinting Indication ankle fracture Verbal consent A sugar-tong and posterior splint were placed by me. Patient's pain improved. She tolerated procedure well Discharge Plan Triage Chief Complaint: Lower Extremity Injury ED Provider: Santy Hawthorne Dx/Rx/DC Orders Clinical Impression: Bimalleolar ankle fracture, Fall Instructions: ED Ankle Fracture Prescriptions: New hydrocodone-acetaminophen 5-325 mg tablet 1 tab PO Q4H PRN PRN (Reason: Pain) 3 Days Qty: 12 0RF No Action penicillin V potassium 250 mg tablet 500 mg PO 4X/DAY Qty: 40 0RF clindamycin HCl [Cleocin HCl] 300 mg capsule 300 mg PO Q6H Qty: 28 0RF hydrocodone-acetaminophen [hydrocodone-acetaminophen] 5-325 mg tablet 1 tab PO Q4H PRN PRN (Reason: Pain) 2 Days Qty: 10 0RF ibuprofen 600 mg tablet 600 mg PO Q6H PRN PRN (Reason: pain) Qty: 20 0RF Primary Care Provider: Care Physician,No Primary Referrals: Ramesh Perry MD [Med Staff - Active Staff] - 2 Days Care Physician,No Primary [Primary Care Provider] - Disposition Disposition: Home, Self Care
[2023-03-06 02:38] VITALS: PULSE 90; RESP 16; O2SAT 98
== END 2023-03-06 02:38 | disposition home or self-care (01) ==
PROVIDERS: Emergency Provider Emergency Medicine; Visit Provider Emergency Medicine
DX: S82.841A Displaced bimalleolar fracture of right lower leg, initial encounter for closed fracture (principal); F17.210 Nicotine dependence, cigarettes, uncomplicated; W19.XXXA Unspecified fall, initial encounter
CPT/HCPCS: 73610; 99283

== ENCOUNTER 2023-03-06 10:25 | Emergency (ER) | payer MEDICAID, SELFPAY ==
[2023-03-06 10:26] VITALS: BP 115/78; PULSE 97; RESP 16; TEMP 36.8; O2SAT 98
[2023-03-06 10:48] VITALS: BMI 24.5
--- NOTE | 2023-03-06 10:49 | ED.VIS.LOWEX ---
HPI History of Present Illness HPI Narrative: Fell last night with a right ankle, bimalleolar fracture. She was placed in a posterior splint with sugar-tong for medial lateral stabilization. Patient took the splint off and thinks she does not have it on right. She is also complaining of some rib pain now. She denies any LOC. She was treated this morning in this emergency department. Chief Complaint: Lower Extremity Injury Informant: patient and friend Occured/Mechanism Mechanism/Context: Yes injury and Yes blunt trauma Onset/Context/Timing Onset: Today and Hours Context: Sudden Onset Timing: Continuous Quality of Pain: Dull and Aching Current Severity: Moderate Maximum Severity: Moderate Narrative Narrative: 27-year-old female seen last night early this morning for a fall while she was drinking causing a right bimalleolar ankle fracture. She was placed in a well-padded posterior ankle Ortho-Glass splint with sugar-tong stabilization. He is also complaining of right rib cage pain. No LOC. No significant headache. Prior similar symptoms: No Recent Illness/Hospitalization: No PFSH PFSH Medical History no medical history no medical history Home Medications penicillin V potassium 250 mg tablet 500 mg PO 4X/DAY #40 tabs 02/16/23 [Rx Last Taken Unknown] clindamycin HCl 300 mg capsule (Cleocin HCl) 300 mg PO Q6H #28 CAPSULES 02/17/23 [Rx Last Taken Unknown] hydrocodone-acetaminophen 5-325mg 5mg-325mg 1 tab PO Q4H PRN PRN Pain 2 days #10 TABLETS 02/17/23 [Rx Last Taken Unknown] ibuprofen 600 mg tablet 600 mg PO Q6H PRN PRN pain #20 TABLETS 02/17/23 [Rx Last Taken Unknown] hydrocodone-acetaminophen 5-325mg 5mg-325mg 1 tab PO Q4H PRN PRN Pain 3 days #12 TABLETS 03/06/23 [Rx Last Taken Unknown] Allergy/AdvReac Type Severity Reaction Status Date / Time No Known Allergies Allergy Verified 03/06/23 10:28 Surgical History no surgical history no surgical history Social History Smoking Status: Current every day smoker tobacco type: cigarettes ROS ROS ED ROS Narrative Denies recent illness. Review of Systems ROS Unobtainable: Denies due to encephalopathy Constitutional Constitutional ED: Denies chills or fever(s) Eyes Eyes: Denies blurry vision ENT ENT ED: Denies ear pain Cardiovascular Cardiovascular: Denies chest pain Respiratory/Chest Respiratory/Chest: Denies cough or dyspnea Gastrointestinal Gastrointestinal: Denies abdominal pain Genitourinary Genitourinary ED: Denies dysuria or hematuria Musculoskeletal Musculoskeletal: Denies arthralgias, back pain, myalgias or neck pain Integumentary Denies abscess Neurologic Neurologic: Denies headache(s) Psychiatric Psychiatric: Denies anxiety or depression Endocrine Endocrinology: Denies polydipsia Hematologic/Lymphatic Hematologic/Lymphatic: Denies easy bleeding Allergic/Immunologic Allergic/Immunologic ED: Denies mouth swelling EXAM Physical Exam Narrative Exam Narrative: 18-year-old female no acute distress. Vital signs stable afebrile. 2 other people present in the room. H EENT exam dry and lase motions are intact. No facial trauma. Small contusion right lateral forehead. Noticing hematoma. No lacerations. C-spine and trachea nontender. Full range of motion. Back and spine nontender. Lungs clear equal symmetric bilaterally. Chest wall mild right-sided rib cage tenderness. No crepitus or subcu air. Heart regular rate and rhythm no murmur. Sternum nontender. Abdomen soft nontender normal bowel sounds no peritoneal signs. No bruising. Pelvic girdle intact. Normal flexion-extension of both hips, knees left ankle left foot. Right lower leg below the knee to the foot has a long posterior splint in place with sugar-tong stabilization. Feet are neurovascular intact. Patient is awake alert. No focal motor or sensory deficits. Normal DP pulse. I did take down the splint there are no lacerations. She has swelling and tenderness to the ankle. Area was cleaned and we have applied Nu Gauze and reapplied the same posterior splint with sugar-tong stabilization that she previously had. Const Vital Signs: 03/06/23 10:26 Temperature 98.3 F Temperature Source Temporal Pulse Rate 97 Respiratory Rate 16 Blood Pressure 115/78 Blood Pressure Mean 90 Pulse Ox 98 Oxygen Delivery Method Room Air Positive well nourished and well developed; Negative for cachectic, contractures or unkempt General Appearance ED: well developed and NAD; Negative for unkempt, cachectic or contractures Nutritional Appearance: Negative for cachectic HEENT Reports moist mucous membranes HEENT Narrative: Right lateral scalp contusion. No sign of hematoma. No laceration. normocephalic, trauma and tenderness; Negative for atraumatic Eyes PERRL Neck full ROM and supple Thyroid: Negative for tender Lymph Lymphatic: Negative for other Chest Wall inspection of chest normal; Negative for palpation of chest normal Chest Narrative: Mild right-sided rib cage tenderness. No crepitus or subcu air. No bruising. Resp normal respiratory effort, no retractions and clear to auscultation bilaterally Effort and Inspection: Negative for pain with movement Auscultation: Negative for rales, rhonchi or wheezes Cardio regular rate, regular rhythm, S1 normal heart sound, S2 normal heart sound and no murmurs Rate: Negative for bradycardia or tachycardic Rhythm: Negative for abnormal rhythm Bruits: Negative for other GI non-tender, non-distended and no masses Inspection: Negative for abdominal distention Auscultation: normoactive bowel sounds Palpation: soft; Negative for tender, guarding or rebound tenderness present Back/Spine no CVA tenderness General Back: Negative for CVA tenderness Thoracic Spine / Upper Back: Negative for thoracic spinal tenderness Lumbar Spine / Lower Back: Negative for lumbar spinal tenderness Extremity normal to inspection and full ROM Extremity Narrative: Except when I took down the right leg posterior splint. She is swelling tenderness of the right ankle consistent with ankle fracture. Normal DP pulse. She is able to wiggle her toes. Normal touch sensation. No lacerations or breakdown of skin. Area was cleaned. Robert padded and the splint was reviewed put back on. Neuro oriented x3, CN's II-XII intact bilaterally, moves all extremities and no sensory deficits noted Sensorium / Orientation: alert, oriented to person, oriented to place and oriented to time; Negative for orientation impaired or confused Motor Exam: strength 5/5 throughout Psych mental status grossly normal Appearance: Negative for unkempt Speech: No other Mood & Affect: Negative for anxious Skin no wounds Lesions: no lesions Rashes: no rashes Trauma: Negative for abrasion MDM MDM MDM Narrative Medical decision making narrative: 27-year-old female fell last night while drinking. Has a right bowel malleolus fracture. She took her splint off. Did not think she put it back on correctly. We took it off to clean the area evaluated the ankle fracture. The ankle is neurovascular intact. Recent padded and the splint put back on. Also going to obtain a chest x-ray to evaluate her ribs. Repeat exam doing well 1127. Be discharged home. Went over x-ray results with patient. Ice and elevate. Motrin pain meds. Keep splint dry and clean and on. Follow-up with orthopedics soon as possible. History & Record Review Discussion w/independent historian: Patient Radiography Chest X-Ray - ED: 2 View, Read by ED Physician, Normal, Heart, Lungs, Mediastinum, Bony Structures and No Acute Disease Diagnostic Testing: Chest x-ray, 2 views, AP and lateral, interpreted by myself shows no acute fracture. No pneumothorax. Normal cardiac silhouette. Normal lung sanders. Normal ribs. Discharge Plan Triage Chief Complaint: Lower Extremity Injury ED Provider: Shukri Henson Dx/Rx/DC Orders Clinical Impression: Bimalleolar ankle fracture, Fall, Contusion of rib, Closed head injury Instructions: ED Ankle Fracture, ED Bruise, Rib Prescriptions: No Action penicillin V potassium 250 mg tablet 500 mg PO 4X/DAY Qty: 40 0RF clindamycin HCl [Cleocin HCl] 300 mg capsule 300 mg PO Q6H Qty: 28 0RF hydrocodone-acetaminophen [hydrocodone-acetaminophen] 5-325 mg tablet 1 tab PO Q4H PRN PRN (Reason: Pain) 2 Days Qty: 10 0RF ibuprofen 600 mg tablet 600 mg PO Q6H PRN PRN (Reason: pain) Qty: 20 0RF hydrocodone-acetaminophen 5-325 mg tablet 1 tab PO Q4H PRN PRN (Reason: Pain) 3 Days Qty: 12 0RF Primary Care Provider: Care Physician,No Primary Referrals: Ramesh Perry MD [Med Staff - Active Staff] - As soon as possible Care Physician,No Primary [Primary Care Provider] - Activity Restrictions/Additional Instructions: Ice and elevate your right ankle to decrease pain and swelling. Very important. Keep the splint on. Keep it dry and clean. When you bathe or take a shower it needs to be into plastic bags. Do not let it submerge in water. Your pain medication as needed. Motrin for pain also and swelling. Ice the right side of your head and also your rib cage. Call and follow-up with the orthopedic doctor soon as possible. I did call their office today and see if they get you in early next week. Often the type ankle fracture that you have needs surgery. Disposition Disposition: Home, Self Care
--- NOTE | 2023-03-06 11:00 | RAD_ITS ---
STUDY: X-RAY CHEST REASON FOR EXAM: Female, 27 years old. Fall and rib pain TECHNIQUE: AP and lateral views of the chest. COMPARISON: Comparison is made with prior study dated April 14, 2018. FINDINGS: The lungs are clear and expanded. There is no demonstrated pleural abnormality. Normal size heart. Normal mediastinum and johnnie. Normal visualized pulmonary arteries. Normal visualized aortic arch and descending thoracic aorta. Normal visualized thoracic spine. Normal visualized ribs, clavicles, and shoulders. There is no demonstrated abnormality of the visualized soft tissue structures of the upper abdomen. RAD/Chest PA and Lateral IMPRESSION: Normal x-ray examination of the chest. Electronically Signed: Gregory Valenzuela MD at 11:26 EDT ,
== END 2023-03-06 11:33 | disposition home or self-care (01) ==
PROVIDERS: Emergency Provider Emergency Medicine; Referring Provider Emergency Medicine; Visit Provider Emergency Medicine
DX: S82.841A Displaced bimalleolar fracture of right lower leg, initial encounter for closed fracture (principal); S09.90XA Unspecified injury of head, initial encounter; F17.210 Nicotine dependence, cigarettes, uncomplicated; S20.219A Contusion of unspecified front wall of thorax, initial encounter; W19.XXXA Unspecified fall, initial encounter
CPT/HCPCS: 29515; 71046; 73610; 99282; 99283

== ENCOUNTER → 2023-03-09 | Outpatient (CLI) | payer MEDICAID, SELFPAY ==
--- NOTE | 2023-03-09 15:34 | CT_ITS ---
EXAM: CT RIGHT LOWER EXTREMITY WITHOUT INTRAVENOUS CONTRAST, ANKLE CLINICAL INDICATION: fx TECHNIQUE: Helically acquired images were obtained of the right ankle without intravenous contrast. 2-D reformats were performed by the technologist. This CT exam was performed using one or more of the following dose reduction techniques: automated exposure control, adjustment of the mA and/or kV according to patient size, and/or use of iterative reconstruction technique. This report was created using [employer] report generation technology. RADIATION DOSE: CTDIvol = 9.92 mGy, DLP = 265.94 mGy-cm COMPARISON: xr 4. FINDINGS: BONES/JOINTS: Complex comminuted fracture of the medial malleolus. Comminuted fracture of the lateral distal tibial plafond. Fracture fragment is noted within the joint space. No evidence for dislocation. SOFT TISSUES: Soft tissue edema. No radiopaque foreign body. OTHER FINDINGS: Fiberglass cast in place. CT/Extremity Lower without Contra IMPRESSION: 1. Soft tissue edema. 2. Complex comminuted fracture of the medial malleolus. Comminuted fracture of the lateral distal tibial plafond. Fracture fragment is noted within the joint space. No evidence for dislocation. Electronically Signed: Richy Mujica MD at 16:52 EDT ,
== END | disposition home or self-care (01) ==
LOC: CT 15:33
PROVIDERS: Referring Provider Orthopaedic Surgery Sports Medicine; Visit Provider Orthopaedic Surgery Sports Medicine
DX: S82.843A Displaced bimalleolar fracture of unspecified lower leg, initial encounter for closed fracture (principal); X58.XXXA Exposure to other specified factors, initial encounter
CPT/HCPCS: 73700

== ENCOUNTER 2023-03-11 11:17 | Day surgery (SDC) | payer MEDICAID, SELFPAY ==
[2023-03-11] VITALS (7 sets, daily range): BP systolic 111–140; BP diastolic 63–97; PULSE 73–90; RESP 16–18; TEMP 36.1–36.9; O2SAT 95–100; BMI 25.0
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
[2023-03-11] MEDS: Lactated Ringers 1,000 ML 15 ML IV ×2 (12:17→16:30)
[2023-03-11 12:29] LABS: Internal QC Validated? YES +Cl - CLEAR BKGD; Pregnancy, Serum, hCG Quali. NEGATIVE Negative
[2023-03-11] MEDS: Cefazolin 2 GM in 0.9% Normal Saline 100 ML IV (13:47)
--- NOTE | 2023-03-11 14:00 | RAD_ITS ---
INDICATION: FX EXAMINATION/TECHNIQUE: X-RAY - RIGHT XR Ankle 2 Views 0 VIEWS COMPARISON: 03/09/2023 FINDINGS: SOFT TISSUES: No soft tissue swelling or gas. No radiopaque foreign body. BONES/JOINTS: Intraoperative images demonstrate 2 lag screws extending across the medial malleolus as well as lateral side plate extending across the distal tibial metaphysis and epiphysis. Near-anatomic alignment of medial malleolar fracture and longitudinally oriented fracture of the distal tibial metaphysis at its lateral aspect. RAD/Ankle 2 Views IMPRESSION: Status post ORIF fractures at the ankle detailed above. Electronically Signed: Momo Gan MD, ODETTE at 21:35 EDT ,
--- NOTE | 2023-03-11 15:46 | DCINST_ITS ---
Discharge Instructions Diet Discharge Diet: No restrictions Activity Discharge Activity: Use Crutches Lifting Restrictions: non weight bearing 6 weeks Keep extremity elevated above heart level: Operative Extremity Dressing / Incision Call your doctor if your incision/area has: Continuous Slow Oozing, Sudden Increased Bleeding, Increased Pain/ Swelling, Increased Redness, Foul Smelling Discharge and Swelling at the incision site Change Dressing in: leave in place till F/U Follow Up Care Please Follow Up With: Carl Finnegan MD When: 2 days Test Results: Test results from this visit will be discussed in further detail at your follow- up appointment, if applicable. Discharge Plan Admission Attending Provider: Carl Finnegan Primary Care Provider: Care Physician,No Primary Instructions Patient Instructions: Ankle Fracture ORIF Discharge Orders/Prescriptions Prescriptions: New oxycodone-acetaminophen [Percocet] 5-325 mg tablet 1 tab PO Q4H MDD 6 PRN (Reason: pain) 7 Days Qty: 30 0RF No Action ibuprofen 600 mg tablet 600 mg PO Q6H PRN PRN (Reason: pain) Qty: 20 0RF acetaminophen 500 mg Tablet 1,000 mg PO Q6H PRN (Reason: Pain) Referrals / Follow Up: Carl Finnegan MD [Med Staff - Active Staff] - Care Physician,No Primary [Primary Care Provider] - Disposition Disposition (needs filled in before D/C Order can be placed): Home, Self Care
--- NOTE | 2023-03-11 15:50 | OP.PCM_ITS ---
Problems Associated Problem List Diagnoses (1) Bimalleolar ankle fracture: Report of Operation Date of Procedure: 03/11/23 Pre-Operative Diagnosis: Right ankle fracture Post-Operative Diagnosis: Same Surgery/Procedure Performed:: Right ankle open reduction internal fixation crown assembly machine set up mechanic: Carl Finnegan Type of Anesthesia: General Anesthesiologist: Ian Modi Estimated Blood Loss (mL): 50 Description of Procedure: Patient brought to the operating room theater. Placed supine on the table. General anesthesia induced 2 g IV Ancef administered prior to the start of the procedure. ALl bony promnences padded, SCDs on other leg. Supine well-padded tourniquet applied to the right thigh. Lower extremity prepped and draped in usual sterile fashion allowing over 3 minutes drying time prior to draping. Preoperative timeout performed to confirm the site patient and the surgery. Began by elevating the leg inflating the tourniquet to 250 mmHg. Made a standard distal tibia anterolateral approach. Protected the superficial peroneal nerve. Made the dissection between the fibula and EDL. Identified the fracture site cleared away any interposed fracture hematoma and periosteum. There was a small articular surface fragment that was unreconstructable approximately 5 mm x 8 mm. This was in multiple small comminuted fragments damage to the articular cartilage. Joint thoroughly irrigated, fractured 'booked open'. The anterior lateral distal tibia was preserved with periosteal and ligamentous attachments. I keyed this back in place achieving appropriate duction. There is a apex proximal aspect of the fracture site shear component therefore I selected a buttress plate configuration. I precontoured a one third tubular plate, the shortest available. Used a 1.6 mm K wire to secure the fragment and plate provisionally. Placed the precontoured plate over top of this in a buttress fashion. Secured this proximally with 2 fully threaded cortical screws bicortical fashion. I then placed an oblique 3.5 mm again fully threaded cortical screw in an oblique fashion at the distal aspect of this ensuring that this was extra-articular and avoiding anterior ankle impingement with the plate. This secured the fragment down appropriately. Next I turned my attention to the medial side of the ankle. Made a distal medial approach slightly curvilinear to the medial aspect of the medial malleolus. Carried dissection down through skin and subcutaneous tissue protecting the saphenous vein. Again removed any interposed periosteum and hematoma. Achieved a preliminary reduction with a small pointed reduction forcep and did a 2.5 mm drill hole in the proximal aspect of the fracture to achieve a good compression across the fracture. I then placed two 4.0 mm partially-threaded cancellous screws in a parallel fashion across the fracture site. This gave good reduction medially. I had to remove a small comminuted fragment medial aspect, but the reduction anteriorly as well as medially along the cortical surface appeared appropriate. All wounds thoroughly irrigated talus appeared normal when I examine the joint. Final radiographs were taken and saved onto the system AP lateral and mortise view. I did an external rotation stress view as well as examined the syndes mosis no instability there no medial clear space widening therefore did not fixate across the syndesmosis. Tourniquet let down hemostasis achieved. Subcutaneous tissue closed with 2-0 Vicryl skin with 3-0 Monocryl. Skin cleaned with wet dry dressing followed application of Steri-Strips Adaptic 4 x 4 gauze ABD dressing sterile cast padding and a posterior fiberglass well-padded splint with the ankle in neutral overwrapped with Tree bandage loosely wrapped. Patient woken up from the general anesthetic transferred off the operating table and taken to postanesthetic care unit in stable condition. All sponge needle instrument counts were correct. Plan for the patient discharged home according to day surgery criteria and follow-up in the office in 2 days time made nonweightbearing. Complications none Admit VTE Documentation VTE Present on Admission: No VTE Mechan Device Prophylaxis: SCD's VTE Pharm Prophylaxis ordered?: No Reason prophylaxis not ordered:: Treatment Not Indicated Procedures Musculoskeletal [id number]: Other Procedure See Report
[2023-03-11] MEDS: HYDROcodone Bitartrate/Apap 5/325 Tablet PO (17:04)
== END 2023-03-11 17:30 | disposition home or self-care (01) ==
LOC: SDC 11:18 → AC 11:19
PROVIDERS: Anesthesiology; Referring Provider Orthopaedic Surgery Sports Medicine; Visit Provider Orthopaedic Surgery Sports Medicine
PROC: (CPT 27814; principal; 2023-03-11 12:40)
DX: S82.841A Displaced bimalleolar fracture of right lower leg, initial encounter for closed fracture (principal); V09.00XA Pedestrian injured in nontraffic accident involving unspecified motor vehicles, initial encounter; Y92.481 Parking lot as the place of occurrence of the external cause; F17.210 Nicotine dependence, cigarettes, uncomplicated
CPT/HCPCS: 27814; 64445; 01480; 73600; 76000; 84703; C1713; J7120; J2405

== ENCOUNTER 2023-04-07 17:42 | Emergency (ER) | payer MEDICAID, SELFPAY ==
[2023-04-07 17:42] VITALS: BP 118/84; PULSE 89; RESP 16; TEMP 36.1; O2SAT 98; BMI 25.0
--- NOTE | 2023-04-07 17:44 | RAD_ITS ---
INDICATION: INJURY EXAMINATION/TECHNIQUE: X-RAY - RIGHT XR Ankle Min 3 Views 3 VIEWS COMPARISON: 03/09/2023, 03/11/2023 RAD/Ankle min 3 Views IMPRESSION: Distal tibia ORIF in near-anatomic alignment. Mild widening of the medial malleolus fracture line may be related to bony resorption. No new fracture. Edema in the pre-Achilles fat pad. Circumferential soft tissue swelling. Electronically Signed: Santy Ma MD at 18:05 EDT ,
== END 2023-04-07 18:52 | disposition left against medical advice (07) ==
DX: Z53.21 Procedure and treatment not carried out due to patient leaving prior to being seen by health care provider (principal)
CPT/HCPCS: 73610

== ENCOUNTER 2023-08-14 02:23 | Emergency (ER) | payer MEDICAID, SELFPAY ==
[2023-08-14 02:24] VITALS: BP 131/98; PULSE 69; RESP 18; TEMP 35.9; O2SAT 100; BMI 22.6
--- NOTE | 2023-08-14 02:57 | EX.ED.DYSGE1 ---
HPI History of Present Illness Chief Complaint: Nausea/Vomiting/Diarrhea Informant: patient Narrative Narrative: Patient is a 28-year-old female with history of IBS. She states that for the past 3 to 4 hours she has been having multiple bouts of nausea and vomiting and she cannot even hold down water. She states there was 1 episode of loose stool/diarrhea as well. She denies any known sick contacts. She denies any fevers or chills. She states that as she cannot hold and then down she is concerned for dehydration with this comes in for evaluation. Patient states there was no blood or discoloration to her emesis. She denies any concern for . PFSH PFS Medical History History of edema History of IBS Smoker Home Medications dicyclomine 20 mg tablet 20 mg PO 4X/DAY PRN PRN Abdominal pain/spasm #28 tabs 08/14/23 [Rx Last Taken Unknown] ondansetron 4 mg disintegrating tablet 4 mg PO TID PRN nausea and vomiting #21 tabs 08/14/23 [Rx Last Taken Unknown] Allergy/AdvReac Type Severity Reaction Status Date / Time No Known Allergies Allergy Verified 08/14/23 02:24 Social History (Updated 03/09/23 @ 14:02 by Mercedez Hoang) household members: family Smoking Status: Current every day smoker tobacco type: cigarettes alcohol intake: current ROS ROS ED Constitutional Constitutional ED: Denies chills or fever(s) ENT ENT ED: Denies sore throat Cardiovascular Cardiovascular: Denies chest pain Respiratory/Chest Respiratory/Chest: Denies cough or dyspnea Gastrointestinal Gastrointestinal: Reports abdominal pain, diarrhea, nausea and vomiting Genitourinary Genitourinary ED: Denies dysuria Musculoskeletal Musculoskeletal: Reports myalgias Integumentary Denies rash Neurologic Neurologic: Denies headache(s) Hematologic/Lymphatic Hematologic/Lymphatic: Denies easy bleeding or easy bruising EXAM Physical Exam Const Vital Signs: 08/14/23 02:24 Temperature 96.7 F L Temperature Source Temporal Pulse Rate 69 Respiratory Rate 18 Blood Pressure 131/98 H Blood Pressure Mean 109 Pulse Ox 100 Positive well nourished and well developed General Appearance ED: well developed HEENT Reports dry mucous membranes HEENT Narrative: Mucous membranes are dry and tacky without secondary changes to suggest infection Mouth ED: Yes dry mucous membranes Mouth: dry mucous membranes Eyes PERRL and EOMs intact bilaterally General Eye ED: Negative for scleral icterus Neck supple Resp normal respiratory effort and clear to auscultation bilaterally Cardio regular rate and regular rhythm Rate: other Other Details: Radial and carotid pulses are equal and symmetric GI non-distended GI Narrative: Abdomen is soft and nondistended with hyperactive bowel sounds. There is mild diffuse pain on palpation without voluntary guarding or rigidity. Auscultation: hyperactive bowel sounds Palpation: soft Extremity normal to inspection Neuro oriented x3, CN's II-XII intact bilaterally and no sensory deficits noted Sensorium / Orientation: alert Motor Exam: strength 5/5 throughout Psych mental status grossly normal Skin no rashes or lesions noted Skin Narrative: Skin turgor is slightly increased General Skin Exam: Negative for jaundice MDM MDM MDM Narrative Medical decision making narrative: Patient presented to the ER slightly hypertensive otherwise afebrile. She reported 3 to 4 hours of of recurrent vomiting with 1 episode of loose stool/diarrhea. Her abdomen is soft and nonsurgical and therefore do not feel there is need for emergent imaging studies. However his differential diagnosis is for pancreatitis versus biliary colic versus versus gastroenteritis I did elect to check basic laboratory studies. Labs revealed no clinically significant findings. After treatment with Zofran patient had no further bouts of vomiting after one 1 L of normal saline reported feeling better. On reevaluation abdomen remains soft and nonsurgical and therefore she is otherwise safe for discharge. History & Record Review Discussion w/independent historian: Patient Lab Data Attestation: I reviewed the patient's lab results. Labs: Laboratory Results - last 24 hr 08/14/23 02:59 WBC 11.5 H RBC 4.69 Hgb 14.4 Hct 42.6 MCV 90.8 MCH 30.7 MCHC 33.8 RDW Std Deviation 42.2 RDW Coeff of Rowan 12.9 Plt Count 356 MPV 8.4 Immature Gran % (Auto) 0.300 Neut % (Auto) 77.0 H Lymph % (Auto) 15.7 L [place] % (Auto) 6.3 Eos % (Auto) 0.3 Baso % (Auto) 0.4 Absolute Neuts (auto) 8.9 H Absolute Lymphs (auto) 1.81 Nucleated RBC % 0 Sodium 138 Potassium 3.8 Chloride 106 Carbon Dioxide 30.0 Anion Gap 2 L BUN 11 Creatinine 0.51 L Estim Creat Clear Calc 151.00 Est GFR (MDRD) Af Amer 183 Est GFR (MDRD) Non-Af 151 BUN/Creatinine Ratio 21.7 H Glucose 107 H Calcium 8.2 L Total Bilirubin 0.20 Direct Bilirubin 0.08 AST 9 L ALT 20 Alkaline Phosphatase 88 Total Protein 7.1 Albumin 3.4 Globulin 3.7 Lipase 15 Serum , Qual NEGATIVE Discharge Plan Triage Chief Complaint: Nausea/Vomiting/Diarrhea ED Provider: Tiburcio Asencio Dx/Rx/DC Orders Clinical Impression: Nausea & vomiting, Dehydration Instructions: ED Dehydration (Adult), ED Vomiting and Diarrhea ... Prescriptions: New dicyclomine 20 mg tablet 20 mg PO 4X/DAY PRN PRN (Reason: Abdominal pain/spasm) Qty: 28 0RF ondansetron 4 mg tablet,disintegrating 4 mg PO TID PRN (Reason: nausea and vomiting) Qty: 21 0RF Primary Care Provider: Care Physician,No Primary Referrals: Care Physician,No Primary [Primary Care Provider] - Activity Restrictions/Additional Instructions: Please use the medication as directed to help control your symptoms and keep yourself well-hydrated. If you have any further concerns please return to the ER for repeat evaluation Disposition Disposition: Home, Self Care
[2023-08-14] MEDS: 0.9% Normal Saline (1000mL) 1,000 ML 999 ML IV (02:58)
[2023-08-14] MEDS: Ondansetron 4 MG/2 ML Vial IV (02:59)
[2023-08-14] MEDS: Dicyclomine 10 MG Capsule 20 MG PO (03:00)
[2023-08-14 03:05] LABS: Absolute Lymphocyte Count 1.81 X10^3/uL (0.83-4.51); Absolute Neutrophil Count 8.9 X10^3/uL (2.0-7.7); Basophil# 0.05 X10^3/uL; Basophil% 0.4 % (0-1); Eosinophil# 0.03 X10^3/uL; Eosinophils% 0.3 % (0-5); Hematocrit 42.6 % (37-47); Hemoglobin 14.4 g/dL (12.0-15.0); Lymphocyte # 1.81 X10^3/ul (0.83-4.51); Lymphocyte % 15.7 % (19-41); Mean Corp Hgb Conc 33.8 g/dL (32-36); Mean Corpuscular Hgb 30.7 pg (27.0-32.0); Mean Corpuscular Volume 90.8 fL (81-99); Mean Platelet Vol. 8.4 fl (6.2-12.0); Monocyte# 0.73 X10^3/uL; Monocyte% 6.3 % (0-10); NRBC Flagged by Analyzer 0 % (0-5); Neutrophil # 8.89 X10^3/uL (2.7-7.7); Platelet Count 356 K/mm3 (150-450); RBC Distribution Width CV 12.9 % (11.6-14.6); RBC Distribution Width SD 42.2 fl (35.1-43.9); Red Blood Count 4.69 M/mm3 (4.2-5.4); White Blood Count 11.5 K/mm3 (4.4-11.0)
[2023-08-14 03:21] LABS: Internal QC Validated? YES +Cl - CLEAR BKGD; Pregnancy, Serum, hCG Quali. NEGATIVE Negative
[2023-08-14 03:28] LABS: AST(SGOT) 9 U/L (15-37); Alanine Aminotransfer ALT/SGPT 20 U/L (13-56); Albumin, Serum 3.4 g/dL (3.2-5.0); Alkaline Phosphatase 88 U/L (45-117); Anion Gap 2 (5-15); BUN 11 mg/dL (7-18); BUN/Creat Ratio 21.7 RATIO (10-20); Bilirubin, Direct 0.08 mg/dL (0.00-0.30); Calcium,Total 8.2 mg/dL (8.5-10.1); Chloride 106 mmol/L (98-107); Creatinine, Serum 0.51 mg/dL (0.55-1.02); EST Glomerular Filtration Rate 151 mL/min (>60); Est Glom Filt Rate - Afr Amer 183 mL/min (>60); Globulin 3.7 g/dL (2.2-4.2); Glucose 107 mg/dL (74-106); Lipase 15 U/L (13-75); Potassium 3.8 mmol/L (3.5-5.1); Protein, Total 7.1 g/dL (6.4-8.2); Sodium Level 138 mmol/L (136-145)
[2023-08-14 04:12] VITALS: BP 115/74; PULSE 81; RESP 16; O2SAT 99
== END 2023-08-14 04:14 | disposition home or self-care (01) ==
PROVIDERS: Emergency Provider Emergency Medicine; Visit Provider Emergency Medicine
DX: R11.2 Nausea with vomiting, unspecified (principal); E86.0 Dehydration; F17.210 Nicotine dependence, cigarettes, uncomplicated; R19.7 Diarrhea, unspecified; Z87.19 Personal history of other diseases of the digestive system
CPT/HCPCS: 80048; 80076; 83690; 84703; 85025; 96361; 96374; 99283; J7030; A4216; J2405

== ENCOUNTER 2024-05-13 13:12 | Emergency (ER) | payer MEDICAID, SELFPAY ==
[2024-05-13 13:13] VITALS: BP 111/75; PULSE 79; RESP 18; TEMP 36.1; O2SAT 100; BMI 21.8
--- NOTE | 2024-05-13 13:48 | ED.RN ---
Pt has left department, did not inform this RN she was leaving.
== END 2024-05-13 13:39 | disposition left against medical advice (07) ==
LOC: ED 13:49
DX: Z53.21 Procedure and treatment not carried out due to patient leaving prior to being seen by health care provider (principal)

== ENCOUNTER 2025-07-21 23:31 | Inpatient (IN) | payer MEDICAID, SELFPAY ==
[2025-07-21 23:32] VITALS: BP 122/88; PULSE 95; RESP 16; TEMP 36.9; O2SAT 100; BMI 25.2
--- NOTE | 2025-07-21 23:48 | EX.ED.DYSGE1 ---
HPI History of Present Illness Chief Complaint: Substance Abuse PFSH PFSH Medical History Polysubstance abuse Alcohol abuse IBS (irritable bowel syndrome) Tobacco use Home Medications ?Medication ?Instructions ?Recorded ?Last Taken ?Type NK 07/21/25 Unknown History Allergy/AdvReac Type Severity Reaction Status Date / Time No Known Allergies Allergy Verified 07/21/25 23:32 Family History (Updated 07/22/25 @ 02:[address] Smiley Swift MD) Mother Cancer Hx Skin CA. Hypertension Father No problems noted. Surgical History History of ankle surgery Social History household members: family Smoking Status: Current every day smoker tobacco type: cigarettes alcohol intake: current alcohol intake frequency: 3 or more drinks per day details: 6-12 twisted tea/beers daily. substance use type: crack/cocaine and amphetamines EXAM Physical Exam Const Vital Signs: 07/21/25 23:32 07/22/25 01:51 Temperature 98.5 F 97.8 F Temperature Source Oral Oral Pulse Rate 95 85 Respiratory Rate 16 13 Blood Pressure 122/88 H 105/80 Blood Pressure Mean 99 88 Pulse Ox 100 99 Oxygen Delivery Method Room Air Room Air MDM MDM MDM Narrative Medical decision making narrative: HISTORY OF PRESENT ILLNESS: Chief complaint: detox 30 F hx of polysubstance abuse here for detoxification from alcohol, cocaine, methamphetamines. NOtes she last used alcohol today. At approximately 5 PM Notes she drinks approximately 6-12 twisted teas/beers daily. REVIEW OF SYSTEMS: Pertinent positives: Alcohol detox Pertinent negatives: Chest pain, shortness of breath, fever PHYSICAL EXAM: Nursing triage notes reviewed, Vital signs reviewed Constitutional: please see mdm HENT: MMM Eyes: Pupils equal round and reactive to light, Extraocular muscles intact Neck: No stridor, no JVD, full neck ROM Lungs: Clear to auscultation, No wheezing or rales. No increased work of breathing, no conversational dyspnea, no accessory muscle use, no nasal flaring. No respiratory distress noted Heart: Regular rate and rhythm, No murmurs, No rubs and No gallops, 2+ distal pulses (radial, femoral, posterior tibial) in all extremities Abdomen: Soft, there is no tenderness, rigidity, rebound or guarding, no obvious peritoneal signs, no palpable pulsatile abdominal masses, no auscultated abdominal bruit : No CVAT Extremities: No edema Neuro: No new focal neurological deficits, cranial nerves II through XII intact, 5/5 strength in all present extremities. Intact sensation to light touch in all present extremities, 2+ reflexes bilateral patella tendons. Skin: No rash or lesions noted MEDICAL DECISION MAKING: Chief Complaint: please see HPI External records reviewed: Factors affecting care: IBS, polysubstance abuse, alcohol abuse Social determinants of health: none History obtained from others: none Consults: Hospitalist (Dr. Swift) MDM Narrative: Patient was hemodynamically stable, afebrile and non-toxic. Exam overall benign. Patient had some nausea was actively vomiting during initial exam however was hemodynamically stable. Abdomen soft and nontender not concern for perforation or obstruction. I obtained labs to further determine if the patient was suffering from a life-threatening etiology. Initially treated the patient with IV fluids and Zofran for initial nausea and vomiting and rehydration. ALL IMAGES (IF OBTAINED) HAVE BEEN PERSONALLY REVIEWED AND INTERPRETED BY MYSELF. EKG with normal sinus rhythm rate 86, normal axis, normal intervals, no STEMI CBC without leukocytosis, severe anemia, no thrombocytopenia. CMP without evidence of acute kidney injury, significant electrolyte abnormality, anion gap to suggest end organ hypo-perfusion, no evidence of metabolic acidosis with a normal bicarbonate, no evidence of hepatobiliary obstructive pathology. Urine is negative Urine tox screen positive for cocaine and cannabinoids Serum alcohol positive Patient was enrolled in [facility] program discussed with hospitalist agreed to take the patient to [facility]. The patient and/or family, caregivers express understanding. The patient and/or family, caregivers agrees with the plan. Shared decision making: I will have a discussion with the patient and or visitors regarding risk/benefits of further testing or admission. They will be made aware of of the risk/benefits inherent in this decision they will be given the opportunity to voice understanding. Total critical care time today provided was at least 0 minutes. This excludes separately billable procedures. Critical care time (if documented) is secondary to the patient having high probability of clinically significant/life threatening deterioration in the patient's condition which required my urgent intervention. Impression: 1. Encounter for alcohol detoxification 2. History of polysubstance abuse 3. Nausea vomit Dispo: Admit to [facility] This note was generated with [employer] dictation software. It may contain incorrect words, spelling, and punctuation that were not noted in review of the chart prior to signing. Lab Data Labs: Laboratory Results - last 24 hr 07/22/25 07/22/25 00:31 01:00 WBC 10.3 RBC 4.36 Hgb 12.9 Hct 39.0 MCV 89.4 MCH 29.6 MCHC 33.1 RDW Std Deviation 43.0 RDW Coeff of Rowan 13.2 Plt Count 348 MPV 8.9 Immature Gran % (Auto) 0.300 Neut % (Auto) 60.1 Lymph % (Auto) 29.7 [place] % (Auto) 8.2 Eos % (Auto) 1.0 Baso % (Auto) 0.7 Absolute Neuts (auto) 6.2 Absolute Lymphs (auto) 3.05 Nucleated RBC % 0 Sodium 137 Potassium 3.9 Chloride 104 Carbon Dioxide 22.2 Anion Gap 11 BUN 11 Creatinine 0.44 L Estim Creat Clear Calc 171.84 Est GFR (MDRD) Non-Af 132 BUN/Creatinine Ratio 25.5 H Glucose 95 Calcium 8.3 Phosphorus 3.2 Magnesium 2.0 Total Bilirubin < 0.15 Direct Bilirubin < 0.08 AST 18 ALT 11 Alkaline Phosphatase 78 Total Protein 6.8 Albumin 3.9 Globulin 2.9 Serum , Qual NEGATIVE Urine Opiates Screen NEGATIVE U Buprenorphine Qual NEGATIVE Ur Oxycodone Screen NEGATIVE Urine Methadone Screen NEGATIVE Urine Fentanyl Screen NEGATIVE Ur Barbiturates Screen NEGATIVE Ur Phencyclidine Scrn NEGATIVE Ur Amphetamines Screen NEGATIVE U Benzodiazepines Scrn NEGATIVE Urine Cocaine Screen PRESUMPTIVE POSITIVE U Cannabinoids Screen PRESUMPTIVE POSITIVE Ethyl Alcohol 38.8 H Syphilis Total Ab Nonreactive Hep Bs Antigen Nonreactive Hepatitis C Antibody Nonreactive HIV 1&2 Antibody Nonreactive Discharge Plan Disposition Disposition: Acute Care Hospital [facility] Discharge Date/Time: 07/22/25 02:52
[2025-07-22] VITALS (10 sets, daily range): BP systolic 102–123; BP diastolic 69–80; PULSE 77–98; RESP 13–20; TEMP 36.5–36.8; O2SAT 96–99; BMI 25.0
--- NOTE | 2025-07-22 00:22 | EKG12_ITS ---
Test Reason : SUBSTANCE ABUSE Blood Pressure : */* mmHG Vent. Rate : 86 BPM Atrial Rate : 86 BPM P-R Int : 148 ms QRS Dur : 76 ms QT Int : 386 ms P-R-T Axes : 43 55 40 degrees QTcB Int : 461 ms Normal sinus rhythm Septal infarct (cited on or before 14-Apr-2018) Abnormal ECG Confirmed by LORENA HUNT, RIANNA ([id number]), movie editor VINCE WONG ([id number]) on 07/24/2025 9:15:12 AM Referred By: SALOMON Confirmed By: RIANNA CARRILLO MD
[2025-07-22] MEDS: 0.9% Normal Saline (1000mL) 1,000 ML 999 ML IV (00:29)
[2025-07-22 00:44] LABS: Hematocrit 39.0 % (37-47); Hemoglobin 12.9 g/dL (12.0-15.0); Immature Granulocytes Count 0.030 X10^3/uL (0.0-0.0); Mean Corp Hgb Conc 33.1 g/dL (32-36); Mean Corpuscular Volume 89.4 fL (81-99); Mean Platelet Vol. 8.9 fl (6.2-12.0); NRBC Flagged by Analyzer 0 % (0-5); Platelet Count 348 K/mm3 (150-450); RBC Distribution Width CV 13.2 % (11.6-14.6); RBC Distribution Width SD 43.0 fl (35.1-43.9); Red Blood Count 4.36 M/mm3 (4.2-5.4); White Blood Count 10.3 K/mm3 (4.4-11.0)
--- OUTSIDE RECORDS SUMMARY | 2025-07-22 00:50 | XMS RPT_ITS | CCD ---
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 Performed By: #### 4 [id number] #### LAB [address] [id number] Micah James M.D. [id number] Urea nitrogen/Creatinine [Mass ratio] 18.2 mg/mg Normal 10.0-20.0 [facility] Comment on above: Order Comment: [facility] has implemented the eGFR calculation approach that does not have a coefficient for race that conforms to the NKF-ASN Task Force Recommendations. Performed By: #### 4 [id number] #### LAB [address] [address] [address]ah James M.D. [id number] CT CERVICAL SPINE WITHOUT CO NTRASTon 05-10-2025 CT CERVICAL SPINE WITHOUT CONTRAST EXAMINATION: CT CERVICAL SPINE WITHOUT CONTRAST HISTORY: ORDERING SYSTEM PROVIDED HISTORY: fall, TECHNOLOGIST PROVIDED HISTORY: Injury/Trauma Reason for exam: fall; head injury Encounter Type: Initial Mechanism of injury: PT BROUGHT IN BY EMS AFTER SHE CALLED WHEN SHE WOKE UP FEELING CLOUDY SHE STATES SHE FELL AND HIT HER HEAD ORDERING SYSTEM PROVIDED DIAGNOSIS CODES: COMPARISON: None. TECHNIQUE: CT cervical spine without contrast. Dose reduction techniques were achieved by using automated exposure control and/or adjustment of mA and/or kV according to patient size and/or use of iterative reconstruction technique. FINDINGS: There is straightening of the cervical lordosis. No subluxation. Vertebral body heights are maintained. No acute fracture. Craniocervical junction is normal in appearance. Atlantodental distance is not widened. No prevertebral soft tissue swelling. IMPRESSION: No acute fracture or traumatic malalignment. Nonspecific straightening of the cervical lordosis. Findings may relate to positioning or muscle spasm. /[facility] Workstation ID: [id number] Dictated by: EDWIN VAIL on ThuMay 10, 2025 10:31:33 AM EDT Transcribed by: KRISTIN VARGAS on ThuMay 10, 2025 10:34:53 AM EDT Finalized by: EDWIN VAIL on ThuMay 10, 2025 10:12:29 PM EDT [facility] Comment on above: Order Comment: Injur y/Trauma or Illness?:Injury/Trauma How long have you had these symptoms (acute/chronic)?:Acute Reason for exam?:fall; head injury Type of Exam?:Initial Mechanism of injury?:PT BROUGHT IN BY EMS AFTER SHE CALLED WHEN SHE WOKE UP FEELING CLOUDY SHE STATES SHE FELL AND HIT HER HEAD CT HEAD OR BRAIN WITHOUT CON TRASTon 05-10-2025 CT HEAD OR BRAIN WITHOUT CONTRAST EXAMINATION: CT HEAD OR BRAIN WITHOUT CONTRAST HISTORY: ORDERING SYSTEM PROVIDED HISTORY: head injury, TECHNOLOGIST PROVIDED HISTORY: Injury/Trauma Reason for exam: head injury Encounter Type: Initial Mechanism of injury: PT BROUGHT IN BY EMS AFTER SHE CALLED WHEN SHE WOKE UP FEELING CLOUDY SHE STATES SHE FELL AND HIT HER HEAD ORDERING SYSTEM PROVIDED DIAGNOSIS CODES: COMPARISON: None. TECHNIQUE: CT examination of the head without IV contrast. Dose reduction techniques were achieved by using automated exposure control and/or adjustment of mA and/or kV according to patient size and/or use of iterative reconstruction technique. FINDINGS: Ventricles and sulci are normal in size and configuration. No extraaxial collection. No intracranial hemorrhage. No mass effect or edema. No CT evidence of large territorial infarction. Visualized paranasal sinuses are well aerated. Mastoids are clear. Calvarium is unremarkable. IMPRESSION: No intracranial hemorrhage or mass effect. [facility] Workstation ID: [id number] Dictated by: EDWIN VAIL on ThuMay 10, 2025 10:27:32 AM EDT Transcribed by: BUCK BURKS on ThuMay 10, 2025 10:28:50 AM EDT Finalized by: EDWIN VAIL on ThuMay 10, 2025 10:11:01 PM EDT [facility] Comment on above: Order Comment: Injur y/Trauma or Illness?:Injury/Trauma How long have you had these symptoms (acute/chronic)?:Acute Reason for exam?:head injury Type of Exam?:Initial Mechanism of injury?:PT BROUGHT IN BY EMS AFTER SHE CALLED WHEN SHE WOKE UP FEELING CLOUDY SHE STATES SHE FELL AND HIT HER HEAD DRUGS OF ABUSE SCREEN, URINE on 05-10-2025 AMPHETAMINE SCREEN, URINE Positive Abnormal None Detected [facility] Comment on above: Order Comment: Scree n results should be used for treatment purposes only. Specimen will be kept for 2 weeks, if the sample is adequate. Confirmation testing can be initiated by calling the lab within 2 weeks. Result Comment: Urin e Amphetamine Cutoff: < 1000 ng/mL = None Detected Performed By: #### 4 [id number] #### LAB [address] [address] Micah James M.D. [id number] BARBITURATE SCREEN URINE Not detected Normal None Detected [facility] Comment on above: Order Comment: Scree n results should be used for treatment purposes only. Specimen will be kept for 2 weeks, if the sample is adequate. Confirmation testing can be initiated by calling the lab within 2 weeks. Result Comment: Urin e Barbiturates Cutoff: < 200 ng/mL = None Detected Performed By: #### 4 [id number] #### [facility] [address] [address] Micah James M.D. [id number] BENZODIAZEPINE SCREEN, URINE Not detected Normal None Detected [facility] Comment on above: Order Comment: Scree n results should be used for treatment purposes only. Specimen will be kept for 2 weeks, if the sample is adequate. Confirmation testing can be initiated by calling the lab within 2 weeks. Result Comment: Urin e Benzodiazepine Cutoff: < 200 ng/mL = None Detected Performed By: #### 4 [id number] #### [facility] [address] [address] Micah James M.D. [id number] BUPRENORPHINE, URINE Not detected Normal None Detected [facility] Comment on above: Order Comment: Scree n results should be used for treatment purposes only. Specimen will be kept for 2 weeks, if the sample is adequate. Confirmation testing can be initiated by calling the lab within 2 weeks. Result Comment: Urin e Buprenorphine Cutoff: < 5 ng/mL = None Detected Performed By: #### 4 [id number] #### LAB [address] [place] [address] Micah James M.D. [id number] CANNABINOID SCREEN URINE Positive Abnormal None Detected [facility] Comment on above: Order Comment: Scree n results should be used for treatment purposes only. Specimen will be kept for 2 weeks, if the sample is adequate. Confirmation testing can be initiated by calling the lab within 2 weeks. Result Comment: Urin e Cannabinoids Cutoff: < 50 ng/mL = None Detected Performed By: #### 4 [id number] #### [facility] [address] [address] Micah James M.D. [id number] COCAINE, SCREEN URINE Not detected Normal None Detected [facility] Comment on above: Order Comment: Scree n results should be used for treatment purposes only. Specimen will be kept for 2 weeks, if the sample is adequate. Confirmation testing can be initiated by calling the lab within 2 weeks. Result Comment: Urin e Cocaine Cutoff: < 300 ng/mL = None Detected Performed By: #### 4 [id number] #### LAB [address] [place] [address] Micah James M.D. [id number] FENTANYL, URINE Not detected Normal None Detected [facility] Comment on above: Order Comment: Scree n results should be used for treatment purposes only. Specimen will be kept for 2 weeks, if the sample is adequate. Confirmation testing can be initiated by calling the lab within 2 weeks. Result Comment: Urin e Fentanyl Cutoff: < 1 ng/mL = None Detected Performed By: #### 4 [id number] #### [facility] [address] [address] Micah James M.D. [id number] METHADONE SCREEN, URINE Not detected Normal None Detected [facility] Comment on above: Order Comment: Scree n results should be used for treatment purposes only. Specimen will be kept for 2 weeks, if the sample is adequate. Confirmation testing can be initiated by calling the lab within 2 weeks. Result Comment: Urin e Methadone Cutoff: < 300 ng/mL = None Detected Performed By: #### 4 [id number] #### [facility] [address] [place], [place] [address] Micah James M.D. [id number] OPIATE SCREEN URINE Not detected Normal None Detected [facility] Comment on above: Order Comment: Scree n results should be used for treatment purposes only. Specimen will be kept for 2 weeks, if the sample is adequate. Confirmation testing can be initiated by calling the lab within 2 weeks. Result Comment: Urin e Opiates Cutoff: < 300 ng/mL = None Detected Performed By: #### 4 [id number] #### LAB [address] [place], [place] [address] Micah James M.D. [id number] OXYCODONE SCREEN, URINE Not detected Normal None Detected [facility] Comment on above: Order Comment: Scree n results should be used for treatment purposes only. Specimen will be kept for 2 weeks, if the sample is adequate. Confirmation testing can be initiated by calling the lab within 2 weeks. Result Comment: Urin e Oxycodone Cutoff: < 100 ng/mL = None Detected Performed By: #### 4 [id number] #### LAB [address] [place], [place] [address] Micah James M.D. [id number] ED Prov Noteon 05-10-2025 ED Prov Note [facility] EMERGENCY DEPARTMENT EMANI NOTE: NAME: Sachi Mckay CSN: [id number] 30 y.o. PCP: No, Physician History: Chief Complaint: No chief complaint on file. HPI: The history was obtained from the patient. Sachi is a 30 y.o. female who presents with a chief complaint of No chief complaint on file.. Patient states that she stained a fall while she was walking to the [employer] store. No chest pain or difficulty breathing. Mild abrasions noted to the body. C-collar in place upon arrival to emergency room. PMHx: No past medical history on file. PMSx: No past surgical history on file. FAM. Hx: No family history on file. SOC. Hx: Social History [1] MEDs: No current outpatient medications on file prior to encounter. ALL: Allergies[2] ROS: Review of Systems Constitutional: Negative. Respiratory: Negative. Cardiovascular: Negative. All other systems reviewed and are negative. Positives and pertinent negatives as per HPI. All other systems were reviewed and are negative. Physical Exam: No data found. Physical Exam Vitals and nursing note reviewed. Constitutional: General: She is not in acute distress. Appearance: Normal appearance. She is not ill-appearing. HENT: Head: Normocephalic and atraumatic. Mouth/Throat: Mouth: Mucous membranes are moist. Pharynx: No oropharyngeal exudate. Eyes: Pupils: Pupils are equal, round, and reactive to light. Cardiovascular: Rate and Rhythm: Normal rate and regular rhythm. Pulses: Normal pulses. Heart sounds: Normal heart sounds. Pulmonary: Effort: Pulmonary effort is normal. No respiratory distress. Breath sounds: Normal breath sounds. No wheezing. Abdominal: General: Bowel sounds are normal. Palpations: Abdomen is soft. Tenderness: There is no abdominal tenderness. There is no right CVA tenderness, left CVA tenderness or guarding. Skin: General: Skin is warm. Capillary Refill: Capillary refill takes less than 2 seconds. Findings: No rash. Comments: Abrasions. Neurological: General: No focal deficit present. Mental Status: She is alert and oriented to person, place, and time. GCS: GCS eye subscore is 4. GCS verbal subscore is 5. GCS motor subscore is 6. Sensory: Sensation is intact. Motor: Motor function is intact. No weakness. Coordination: Coordination is intact. Gait: Gait is intact. Laboratory & Radiological Imaging (if done): Labs Reviewed COMPREHENSIVE METABOLIC PANEL - Abnormal; Notable for the following components: Result Value Total Protein 5.9 (*) All other components within normal limits Narrative: [facility] has implemented the eGFR calculation approach that does not have a coefficient for race that conforms to the NKF-ASN Task Force Recommendations. URINALYSIS - Abnormal; Notable for the following components: Mucus, Urine Few (*) All other components within normal limits Narrative: Microscopic examination is performed on all urinalysis samples and only positive findings are reported. The test for blood on the chemical analytic portion of urinalysis may also be positive due to hemoglobinuria and myoglobinuria and if red blood cells are present they are quantified by microscopic examination. DRUGS OF ABUSE SCREEN, URINE - Abnormal; Notable for the following components: Amphetamine Screen, Urine Presumptive Positive (*) Cannabinoid Screen, Urine Presumptive Positive (*) All other components within normal limits Narrative: Screen results should be used for treatment purposes only. Specimen will be kept for 2 weeks, if the sample is adequate. Confirmation testing can be initiated by calling the lab within 2 weeks. CBC WITH AUTO DIFFERENTIAL - Abnormal; Notable for the following components: MPV 8.6 (*) All other components within normal limits LIPASE - Normal HCG, SERUM, QUALITATIVE - Normal Narrative: Negative: The result is less than or equal to 5 mIU/mL of HCG. URINE AEROBIC CULTURE CBC AND DIFFERENTIAL Narrative: The following orders were created for panel order CBC w/ Diff. Procedure Abnormality Status --------- ------ CBC Auto Differential[[id number]] Abnormal Final result Please view results for these tests on the individual orders. CT Head Or Brain Without Contrast Final Result No intracranial hemorrhage or mass effect. /[facility] Workstation ID: [id number] CT Cervical Spine Without Contrast Final Result No acute fracture or traumatic malalignment. Nonspecific straightening of the cervical lordosis. Findings may relate to positioning or muscle spasm. /[employer] Workstation ID: [id number] ED Course / Medical Decision Making: I did personally review Sachi's past medical history, surgical history, social history, as well as family history (when relevant). In this case, I also oversaw the her drug management by reviewing her medication list, allergy list, as well as the medications (more content not included)... Normal [facility] HCG, SERUM, QUALITATIVEon BETA-HCG QUAL BLOOD Negative Normal Negative [facility] Comment on above: Order Comment: Negat natanael: The result is less than or equal to 5 mIU/mL of HCG. Performed By: #### 4 [id number] #### LAB [address] [place], [place] [address] Micah James M.D. [id number] LIPASEon 05-10-2025 Lipase [Catalytic activity/Vol] 20 U/L Normal 15-65 [facility] Comment on above: Performed By: #### 4 6086 #### LAB [address] [place], [place] [address] Micah James M.D. [id number] URINALYSISon 05-10-2025 BACTERIA, URINE None Seen Normal None Seen [facility] Comment on above: Order Comment: Micro scopic examination is performed on all urinalysis samples and only positive findings are reported. The test for blood on the chemical analytic portion of urinalysis may also be positive due to hemoglobinuria and myoglobinuria and if red blood cells are present they are quantified by microscopic examination. Performed By: #### 4 [id number] #### LAB [address] [place] [address] Micah James M.D. [id number] BILIRUBIN, URINE Negative Normal Negative [facility] Comment on above: Order Comment: Micro scopic examination is performed on all urinalysis samples and only positive findings are reported. The test for blood on the chemical analytic portion of urinalysis may also be positive due to hemoglobinuria and myoglobinuria and if red blood cells are present they are quantified by microscopic examination. Performed By: #### 4 [id number] #### LAB [address] [place] [address] Micah James M.D. [id number] BLOOD, URINE Negative Normal Negative [facility] Comment on above: Order Comment: Micro scopic examination is performed on all urinalysis samples and only positive findings are reported. The test for blood on the chemical analytic portion of urinalysis may also be positive due to hemoglobinuria and myoglobinuria and if red blood cells are present they are quantified by microscopic examination. Performed By: #### 4 [id number] #### LAB [address] [address] Micah James M.D. [id number] Clarity (U) Clear Normal Clear [facility] Comment on above: Order Comment: Micro scopic examination is performed on all urinalysis samples and only positive findings are reported. The test for blood on the chemical analytic portion of urinalysis may also be positive due to hemoglobinuria and myoglobinuria and if red blood cells are present they are quantified by microscopic examination. Performed By: #### 4 [id number] #### LAB [address] [address] Micah James M.D. [id number] Color (U) Yellow Normal Colorless, Yellow [facility] Comment on above: Order Comment: Micro scopic examination is performed on all urinalysis samples and only positive findings are reported. The test for blood on the chemical analytic portion of urinalysis may also be positive due to hemoglobinuria and myoglobinuria and if red blood cells are present they are quantified by microscopic examination. Performed By: #### 4 [id number] #### LAB [address] [address] Micah James M.D. [id number] Glucose Ql (U) Negative Normal Negative [facility] Comment on above: Order Comment: Micro scopic examination is performed on all urinalysis samples and only positive findings are reported. The test for blood on the chemical analytic portion of urinalysis may also be positive due to hemoglobinuria and myoglobinuria and if red blood cells are present they are quantified by microscopic examination. Performed By: #### 4 [id number] #### LAB [address] [address] Micah James M.D. [id number] Ketones Ql (U) Negative Normal Negative [facility] Comment on above: Order Comment: Micro scopic examination is performed on all urinalysis samples and only positive findings are reported. The test for blood on the chemical analytic portion of urinalysis may also be positive due to hemoglobinuria and myoglobinuria and if red blood cells are present they are quantified by microscopic examination. Performed By: #### 4 [id number] #### LAB [address] [address] Micah James M.D. [id number] Leukocyte esterase Test strip Ql (U) Negative Normal Negative [facility] Comment on above: Order Comment: Micro scopic examination is performed on all urinalysis samples and only positive findings are reported. The test for blood on the chemical analytic portion of urinalysis may also be positive due to hemoglobinuria and myoglobinuria and if red blood cells are present they are quantified by microscopic examination. Performed By: #### 4 [id number] #### LAB [address] [id number] Micah James M.D. [id number] MUCUS, URINE Few Abnormal None Seen, [facility] Comment on above: Order Comment: Micro scopic examination is performed on all urinalysis samples and only positive findings are reported. The test for blood on the chemical analytic portion of urinalysis may also be positive due to hemoglobinuria and myoglobinuria and if red blood cells are present they are quantified by microscopic examination. Performed By: #### 4 [id number] #### LAB [address] [address] Micah James M.D. [id number] NITRITE, URINE Negative Normal Negative [facility] Comment on above: Order Comment: Micro scopic examination is performed on all urinalysis samples and only positive findings are reported. The test for blood on the chemical analytic portion of urinalysis may also be positive due to hemoglobinuria and myoglobinuria and if red blood cells are present they are quantified by microscopic examination. Performed By: #### 4 [id number] #### LAB [address] [place] [address] Micah James M.D. [id number] pH (U) 7.0 [pH] Normal 5.0-7.0 [facility] Comment on above: Order Comment: Micro scopic examination is performed on all urinalysis samples and only positive findings are reported. The test for blood on the chemical analytic portion of urinalysis may also be positive due to hemoglobinuria and myoglobinuria and if red blood cells are present they are quantified by microscopic examination. Performed By: #### 4 [id number] #### LAB [address] [place] [address] Micah James M.D. [id number] PROTEIN, URINE Negative Normal Negative [facility] Comment on above: Order Comment: Micro scopic examination is performed on all urinalysis samples and only positive findings are reported. The test for blood on the chemical analytic portion of urinalysis may also be positive due to hemoglobinuria and myoglobinuria and if red blood cells are present they are quantified by microscopic examination. Performed By: #### 4 [id number] #### LAB [address] [address] Micah James M.D. [id number] RBC LM.HPF (Urine sed) [#/Area] 1 /[HPF] Normal 0-3 [facility] Comment on above: Order Comment: Micro scopic examination is performed on all urinalysis samples and only positive findings are reported. The test for blood on the chemical analytic portion of urinalysis may also be positive due to hemoglobinuria and myoglobinuria and if red blood cells are present they are quantified by microscopic examination. Performed By: #### 4 [id number] #### LAB [address] [address] Micah James M.D. [id number] Specific gravity (U) [Rel density] 1.017 Normal 1.005-1.025 [facility] Comment on above: Order Comment: Micro scopic examination is performed on all urinalysis samples and only positive findings are reported. The test for blood on the chemical analytic portion of urinalysis may also be positive due to hemoglobinuria and myoglobinuria and if red blood cells are present they are quantified by microscopic examination. Performed By: #### 4 [id number] #### [facility] [address] [place] [address] Micah James M.D. [id number] SQUAMOUS EPITHELIAL 1 /hpf Normal 0-4 [facility] Comment on above: Order Comment: Micro scopic examination is performed on all urinalysis samples and only positive findings are reported. The test for blood on the chemical analytic portion of urinalysis may also be positive due to hemoglobinuria and myoglobinuria and if red blood cells are present they are quantified by microscopic examination. Performed By: #### 4 6625 #### LAB [address] [address] Micah James M.D. [id number] UROBILINOGEN, URINE <2.0 Normal <2.0 [facility] Comment on above: Order Comment: Micro scopic examination is performed on all urinalysis samples and only positive findings are reported. The test for blood on the chemical analytic portion of urinalysis may also be positive due to hemoglobinuria and myoglobinuria and if red blood cells are present they are quantified by microscopic examination. Performed By: #### 4 6625 #### LAB [address] [address] Micah James M.D. [id number] WBC LM.HPF (Urine sed) [#/Area] 2 /[HPF] Normal 0-5 [facility] Comment on above: Order Comment: Micro scopic examination is performed on all urinalysis samples and only positive findings are reported. The test for blood on the chemical analytic portion of urinalysis may also be positive due to hemoglobinuria and myoglobinuria and if red blood cells are present they are quantified by microscopic examination. Performed By: #### 4 6625 #### LAB [address] [place], [place] [address] Micah James M.D. [id number] URINE AEROBIC CULTUREon 04-17 URINE AEROBIC CULTURE URINE CULTURE < 10,000 CFU/mL of normal urogenital microbiota Normal [facility] Comment on above: Performed By: #### 4 4053 #### [facility] [address] [place], [place] [address] Rad Duncan M.D. [id number] Absolute lymphocyte countOrd ered By: Tiburcio Asencio on 08-14-2023 Lymphocytes Auto (Unsp spec) [#/Vol] 1.81 10*3/uL 0.83-4.51 [facility] Basic Metabolic Profile (BMP )on 08-14-2023 BUN/CRE 21.7 RATIO High 10-20 [facility] Comment on above: Performed By: #### L 100.0100, L500.2500, L501.2450, L500.3400 #### [facility] [address] [place], [address] CA,Total 8.2 mg/dL Low 8.5-10.1 [facility] Comment on above: Performed By: #### L 100.0100, L500.2500, L501.2450, L500.3400 #### [facility] [address] [place], [address] Chloride [Moles/Vol] 106 mmol/L Normal 98-107 [facility] Comment on above: Performed By: #### L 100.0100, L500.2500, L501.2450, L500.3400 #### [facility] [address] [place], [address] CO2 [Moles/Vol] 30.0 mmol/L Normal 21.0-32.0 [facility] Comment on above: Performed By: #### L 100.0100, L500.2500, L501.2450, L500.3400 #### [facility] [address] [place], [address] Creatinine [Mass/Vol] 0.51 mg/dL Low 0.55-1.02 [facility] Comment on above: Result Comment: The validity of the calculated GFR GFRAA in patients over 70 years has not been determined. Clinical correlation is essential. Performed By: #### L 100.0100, L500.2500, L501.2450, L500.3400 #### [facility] [address] [place], [address] ECRCL 151.00 ml/min Normal [facility] Comment on above: Performed By: #### L 100.0100, L500.2500, L501.2450, L500.3400 #### [facility] [address] [place], [address] EST GFR - AA 183 mL/min Normal >60 [facility] Comment on above: Result Comment: Afri can Mongolian GFR Calc Performed By: #### L 100.0100, L500.2500, L501.2450, L500.3400 #### [facility] [address] [place], [address] GAP 2 Low 5-15 [facility] Comment on above: Performed By: #### L 100.0100, L500.2500, L501.2450, L500.3400 #### [facility] [address] [place], [address] GFR/1.73 sq M.predicted among non-blacks MDRD (S/P/Bld)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 headache, loss of consciousness, nausea, neck pain, numbness and vision changes. Risk Screens Suicide Risk Screen In the Past Month: Have you wished you were or wished you could go to sleep and not wake up no In the Past Month: Have you had any actual thoughts of killing yourself no In Your Lifetime: Have you ever done anything, started to do anything, or prepared to do anything to end your life no Meehan Fall Scale Screening Has the patient fallen before (or is the patient in the ED as a result of a fall) has not had a fall Does the patient have an impaired gait does not have impaired gait Is the patient cognitively impaired not cognitively impaired Interventions: Meehan Fall Interventions: LOW INTERVENTIONS: *patient oriented to surroundings and call system, * patient/family falls education completed and documented, *patients fall status communicated during bedside handoff, *whiteboard updated, *mode of toileting discussed with patient, *bed in low position with brakes locked, *call light in reach, * non-skid footwear TRAVEL HISTORY Travel History Coronavirus Screening: no exposure or symptoms PAIN Pain Scale Used: ONEL Pain Rating (0-10): 4 = Moderate Past Medical History: Past Medical History Reviewedyes Pt denies: Past Medical History, Active Electronic Signatures: Mercedez Mccoy (ABI) (Signed 16-Mar-2021 17:57) Authored: Quick Triage, Risk Screens, Pain, Chart Review, Scores, Past Medical History Last Updated: 16-Mar-2021 17:57 by Mercedez Mccoy (RN) [facility] Vital Signs Date Time Vital Sign Value Performing Clinician Tamara amaya 07-03-2025 16:06-0400 Body temperature 98.6 [degF] Lanette Amato PASTRYCOOK.CLINICAL ADVISOR Work Phone: [facility] 07-03-2025 16:06-0400 Body weight 68.5 kg Lanette Amato PASTRYCOOK.CLINICAL ADVISOR Work Phone: [facility] 07-03-2025 16:06-0400 Diastolic blood pressure 80 mm[Hg] Lantete Amato PASTRYCOOK.CLINICAL ADVISOR Work Phone: [facility] 07-03-2025 16:06-0400 Heart rate 92 /min Lanette Amato PASTRYCOOK.CLINICAL ADVISOR Work Phone: [facility] 07-03-2025 16:06-0400 Respiratory rate 18 /min Lanette Amato PASTRYCOOK.CLINICAL ADVISOR Work Phone: [facility] 07-03-2025 16:06-0400 SaO2% (BldA) [Mass fraction] 98 % Lanette Amato PASTRYCOOK.CLINICAL ADVISOR Work Phone: [facility] 07-03-2025 16:06-0400 Systolic blood pressure 100 mm[Hg] Lanette Amato PASTRYCOOK.CLINICAL ADVISOR Work Phone: [facility] 08-14-2023 04:12-0400 Diastolic blood pressure 74 mm[Hg] [facility] 08-14-2023 04:12-0400 Heart rate 81 /min [facility] 08-14-2023 04:12-0400 Respiratory rate 16 /min [facility] 08-14-2023 04:12-0400 SaO2% (BldA) [Mass fraction] 99 % [facility] 08-14-2023 04:12-0400 Systolic blood pressure 115 mm[Hg] [facility] 08-14-2023 02:24-0400 Body height 167.64 cm [facility] 08-14-2023 02:24-0400 Body mass index (BMI) [Ratio] 22.6 kg/m2 [facility] 08-14-2023 02:24-0400 Body temperature 96.7 [degF] [facility] 08-14-2023 02:24-0400 Body weight 63.7 kg [facility] 03-11-2023 17:25-0400 Body temperature 98.4 [degF] No Primary Care Physician [facility] 03-11-2023 17:25-0400 Diastolic blood pressure 84 mm[Hg] No Primary Care Physician [facility] 03-11-2023 17:25-0400 Heart rate 77 /min No Primary Care Physician [facility] 03-11-2023 17:25-0400 Respiratory rate 16 /min No Primary Care Physician [facility] 03-11-2023 17:25-0400 SaO2% (BldA) [Mass fraction] 95 % No Primary Care Physician [facility] 03-11-2023 17:25-0400 Systolic blood pressure 127 mm[Hg] No Primary Care Physician [facility] 03-11-2023 12:12-0400 Body height 167.64 cm No Primary Care Physician [facility] 03-11-2023 12:12-0400 Body mass index (BMI) [Ratio] 25 kg/m2 No Primary Care Physician [facility] 03-11-2023 12:12-0400 Body weight 70.3 kg No Primary Care Physician [facility] 03-09-2023 14:01-0400 Body mass index (BMI) [Ratio] 24.3 kg/m2 No Primary Care Physician [facility] 03-09-2023 14:01-0400 Body weight 68.49 kg No Primary Care Physician [facility] 03-06-2023 10:48-0400 Body mass index (BMI) [Ratio] 24.5 kg/m2 [facility] 03-06-2023 10:48-0400 Body weight 68.8 kg [facility] 03-06-2023 10:26-0400 Body height 167.64 cm [facility] 03-06-2023 10:26-0400 Body temperature 98.3 [degF] [facility] 03-06-2023 10:26-0400 Diastolic blood pressure 78 mm[Hg] [facility] 03-06-2023 10:26-0400 Heart rate 97 /min [facility] 03-06-2023 10:26-0400 Respiratory rate 16 /min [facility] 03-06-2023 10:26-0400 SaO2% (BldA) [Mass fraction] 98 % [facility] 03-06-2023 10:26-0400 Systolic blood pressure 115 mm[Hg] [facility] 03-06-2023 02:38-0400 Heart rate 90 /min [facility] 03-06-2023 02:38-0400 Respiratory rate 16 /min [facility] 03-06-2023 02:38-0400 SaO2% (BldA) [Mass fraction] 98 % [facility] 03-06-2023 01:20-0400 Body height 177.8 cm [facility] 03-06-2023 01:20-0400 Body mass index (BMI) [Ratio] 21.4 kg/m2 [facility] 03-06-2023 01:20-0400 Body temperature 98.2 [degF] [facility] 03-06-2023 01:20-0400 Body weight 67.9 kg [facility] 03-06-2023 01:20-0400 Diastolic blood pressure 81 mm[Hg] [facility] 03-06-2023 01:20-0400 Systolic blood pressure 118 mm[Hg] [facility] 02-17-2023 14:33-0400 Body height 167.64 cm [facility] 02-17-2023 14:33-0400 Body mass index (BMI) [Ratio] 25.4 kg/m2 [facility] 02-17-2023 14:33-0400 Body temperature 97.5 [degF] [facility] 02-17-2023 14:33-0400 Body weight 71.62 kg [facility] 02-17-2023 14:33-0400 Diastolic blood pressure 84 mm[Hg] [facility] 02-17-2023 14:33-0400 Heart rate 90 /min [facility] 02-17-2023 14:33-0400 Respiratory rate 18 /min [facility] 02-17-2023 14:33-0400 SaO2% (BldA) [Mass fraction] 97 % [facility] 02-17-2023 14:33-0400 Systolic blood pressure 109 mm[Hg] [facility] 02-16-2023 11:44-0400 Body height 167.64 cm [facility] 02-16-2023 11:44-0400 Body mass index (BMI) [Ratio] 23.2 kg/m2 [facility] 02-16-2023 11:44-0400 Body temperature 98.3 [degF] [facility] 02-16-2023 11:44-0400 Body weight 65.31 kg [facility] 02-16-2023 11:44-0400 Diastolic blood pressure 94 mm[Hg] [facility] 02-16-2023 11:44-0400 Heart rate 102 /min [facility] 02-16-2023 11:44-0400 Respiratory rate 16 /min [facility] 02-16-2023 11:44-0400 SaO2% (BldA) [Mass fraction] 98 % [facility] 02-16-2023 11:44-0400 Systolic blood pressure 124 mm[Hg] [facility] 03-29-2022 02:43-0400 Heart rate 107 /min [facility] Work Phone: 03-29-2022 02:43-0400 Respiratory rate 16 /min [facility] Work Phone: 03-29-2022 02:43-0400 SaO2% (BldA) [Mass fraction] 97 % [facility] Work Phone: 03-28-2022 23:36-0400 Body height 167.64 cm [facility] Work Phone: 03-28-2022 23:36-0400 Body mass index (BMI) [Ratio] 25.6 kg/m2 [facility] Work Phone: 03-28-2022 23:36-0400 Body temperature 98.4 [degF] [facility] Work Phone: 03-28-2022 23:36-0400 Body weight 72 kg [facility] Work Phone: 03-28-2022 23:36-0400 Diastolic blood pressure 98 mm[Hg] [facility] Work Phone: 03-28-2022 23:36-0400 Systolic blood pressure 130 mm[Hg] [facility] Work Phone: 03-16-2021 19:51-0400 Body height 162.5 cm Text Entry [facility] 03-16-2021 19:51-0400 Body temperature 98.6 [degF] Text Entry [facility] 03-16-2021 19:51-0400 Body weight 63.6 kg Text Entry [facility] 03-16-2021 19:51-0400 Diastolic blood pressure 75 mm[Hg] Text Entry [facility] 03-16-2021 19:51-0400 Heart rate 94 /min Text Entry [facility] 03-16-2021 19:51-0400 Respiratory rate 18 /min Text Entry [facility] 03-16-2021 19:51-0400 SaO2% (BldA) [Mass fraction] 100 % Text Entry [facility] 03-16-2021 19:51-0400 Systolic blood pressure 116 mm[Hg] Text Entry [facility] Encounters Encounter Date Encounter Type Care Provider Facility Start: 07-03-2025 End: 07-03-2025 Patient encounter procedure Lanette Melvin BUSTAMANTECLINICAL ADVISOR Work Phone: [facility] Comment on above: Acute strain of neck muscle, initial encounter (Primary Dx); Muscle spasm Start: 07-03-2025 End: 07-03-2025 ambulatory JESSIE HOLLEY Facility:[facility] Start: 05-11-2025 End: 07-11-2025 Follow-up encounter Sofie Grier [facility],PharmD [facility] Comment on above: Urine Aerobic Cultur e Start: 05-10-2025 End: 05-10-2025 Emergency department patient visit PHYSICIAN NO [facility] Start: 05-13-2024 End: 05-13-2024 Emergency department patient visit Ed Physician Provider Facility:[facility] Start: 08-14-2023 End: 08-14-2023 Emergency department patient visit [facility] Work Phone: Start: 04-07-2023 Emergency department patient visit ANITHA MIXON DO Facility:B Start: 03-13-2023 End: 03-13-2023 Patient encounter procedure No Primary Care Physician [facility] Start: 03-11-2023 Non-patient / Non-visit No Rosa rebeca Care Physician [facility] Start: 03-11-2023 End: 03-11-2023 Admission to same day surgery center No Primary Care Physician [facility] Start: 03-11-2023 End: 03-11-2023 ambulatory No Primary Care Physician [facility] Work Phone: Start: 03-09-2023 End: 03-09-2023 ambulatory No Primary Care Physician [facility] Work Phone: Start: 03-09-2023 End: 03-09-2023 Patient encounter procedure No Primary Care Physician [facility] Start: 03-09-2023 End: 03-09-2023 Patient encounter procedure No Primary Care Physician [facility] Start: 03-06-2023 End: 03-06-2023 Emergency department patient visit [facility] Start: 03-06-2023 End: 03-06-2023 Emergency department patient visit [facility] Start: 02-17-2023 End: 02-17-2023 Emergency department patient visit [facility] Start: 02-16-2023 End: 02-16-2023 Emergency department patient visit [facility] Start: 12-17-2022 Telephone encounter Lanette alfred PASTRYCOOK.CNM Work Phone: OB/Gynecology Comment on above: Results Start: 12-08-2022 Telephone encounter Lanette alfred PASTRYCOOK.CNM Work Phone: OB/Gynecology Comment on above: HCG Start: 09-22-2022 Telephone encounter Nadine pena MD Work Phone: OB/Gynecology Comment on above: Orders Results Start: 09-18-2022 End: 09-18-2022 Nursing evaluation of patient and report Nurse Pnob [facility] Work Phone: OB/Gynecology Comment on above: Supervision of high risk , antepartum (Primary Dx); Spotting in ; Risk of labor during , antepartum; Tobacco use during , antepartum; Marijuana use during ; History of alcohol abuse; Patient request for diagnostic testing Start: 09-18-2022 End: 09-18-2022 Patient requested procedure Nurse Pnob [facility] Work Phone: [facility] Work Phone: Start: 09-18-2022 Telephone encounter Nadine pena MD Work Phone: OB/Gynecology Comment on above: Early OB spotting Start: 09-11-2022 Telephone encounter Adore Dumont MD Work Phone: OB/Gynecology Comment on above: Missed Appointment Start: 03-28-2022 End: 03-29-2022 [facility] Start: 03-16-2021 End: 03-16-2021 Emergency department patient visit Chandra Sethtravon [facility] Emergency 01 Procedures Date Procedure Procedure Detail Performing Clinician Start: 03-11-2023 Fluoroscopic guidance N o Primary Care Physician Start: 03-11-2023 Radiography of ankle No Primary Care Physician Start: 03-11-2023 Open reduction with internal fixation No Primary Care Physician Start: 03-09-2023 MRI of lower extremity No Primary Care Physician Start: 03-09-2023 Radiography of ankle No Primary Care Physician Start: 03-06-2023 Plain chest X-ray Start: 03-06-2023 Radiography of ankle Plan of Treatment Date Care Activity Detail Author Start: 07-17-2025 Influenza vaccination Influenza Vacc ine (#1) [facility] Start: 09-23-2024 Tetanus vaccination Tetanus: Every 1 0yrs [facility] Start: 09-23-2024 Urine microalbumin profile DTaP,Tdap,Td Vaccine (9 - Td or Tdap) [facility] Start: 07-17-2024 COVID-19 Vaccine ( season) COVID-19 Vaccine ( season) [facility] Start: 2023 Screening for malign ant neoplasm of cervix [facility] Start: 03-11-2023 Application of ice collar, cap or bag [facility] Start: 03-11-2023 Assessment of risk o f venous thromboembolism [facility] Start: 03-11-2023 Catheterization of vein [facility] Start: 03-11-2023 Deep breathing and coughing exercises [facility] Start: 03-11-2023 Elevation of affecte d extremity [facility] Start: 03-11-2023 Following clinical pathway protocol [facility] Start: 03-11-2023 Gait training procedure [facility] Start: 03-11-2023 Incentive spirometry [facility] Start: 03-11-2023 Introduction of urin sam catheter [facility] Start: 03-11-2023 End: 03-11-2023 Patient discharge [facility] Start: 03-11-[address] [facility] Start: 03-11-2023 Taking patient vital signs [facility] Start: 03-11-2023 Vital signs measurements [facility] Start: 03-11-2023 End: 03-11-2023 [facility] Start: 03-11-2023 Radiography of ankle Ankle 2 Views [facility] Start: 03-11-2023 XR Ankle 2 Views [facility] Start: 03-11-2023 Medication education [facility] Start: 03-06-2023 Application short le g splint calf foot APPLICATION LOWER LEG SPLINT [facility] Start: 03-06-2023 Emergency department visit moderate severity EMERGENCY DEPT VISIT LOW MDM [facility] Start: 03-06-2023 Radex ankle complete minimum 3 views X-RAY EXAM OF ANKLE [facility] Start: 11-16-2022 DEPRESSION ASSESSMENT DEPRESSION ASS ESSMENT [facility] Start: 09-22-2022 End: 11-22-2022 Choriogonadotropin.beta subunit [Units/volume] in Serum or Plasma HCG QUANTITATIVE Lab Routine Early stage of Expected: 09/22/2022, Expires: 11/22/2022 [facility] Work Phone: Comment on above: Expected: 09/22/2022 , Expires: 11/22/2022 Start: 07-17-2022 Influenza vaccination INFLUENZA (#1) [facility] Start: 11-16-2021 DEPRESSION ASSESSMENT DEPRESSION ASS ESSMENT [facility] Start: 07-05-2020 Urine microalbumin profile [facility] Start: 2014 PAP TESTING PAP TESTING [facility] Start: 2014 Screening for malign ant neoplasm of cervix [facility] Start: 2012 Pneumococcal vaccination Pneum ococcal Vaccine (1 of 2 - PCV) [facility] Start: 2011 Anxiety Screening Anxiety Screening [facility] Start: 2011 Depression Screening Depression Scre ening [facility] Start: 2011 HEPATITIS [facility]CRE[facility] Start: 2011 Hepatitis C screening Hepatitis C [facility] Start: 2011 HIV SCREENING HIV SCREENING [facility] Start: 2011 HIV screening HIV Screening [facility] Start: 2008 HIV screening HIV Screening [facility] Start: 2005 Depression screening using PHQ-9 (Patient Health Questionnaire 9) score Depression Screening/Follow-Up (PHQ-2/9) [facility] Start: 1999 PNEUMOCOCCAL (1 - PCV) PNEUMOCOCCAL (1 - PCV) [facility] Start: 1996 History and physical examination, annual for health maintenance Wellness Visit [facility] Start: 1993 COVID-19 VACCINE (#1) COVID-19 VACCI NE (#1) [facility] End: 09-18-2023 Choriogonadotropin.beta subunit [Units/volume] in Serum or Plasma HCG QUANTITATIVE Lab Routine Bleeding in early 2x per week for 2 Occurrences starting 09/18/2022 until 09/18/2023 [facility] Work Phone: Comment on above: 2x per week for 2 Oc currences starting 09/18/2022 until 09/18/2023 Choriogonadotropin.b eta subunit [Units/volume] in Serum or Plasma HCG QUANTITATIVE Lab Routine Bleeding in early 09/18/2022 3:11 PM EDT [facility] Work Phone: Patient Education [facility] Work Phone: Patient referral [facility] Work Phone: [facility] Immunizations Immunization Date Immunization Notes Care Provider Jefe beatty 09-23-2014 tetanus toxoid, redu alfred diphtheria toxoid, and acellular pertussis vaccine, adsorbed [facility] 08-05-2011 influenza virus vaccine, live, attenuated, for intranasal use Adore Dumont MD Work Phone: [facility] Work Phone: 08-05-2011 Meningococcal, MCV4, unspecified conjugate formulation(groups A, C, Y and W-135) Adore Dumont MD Work Phone: [facility] Work Phone: 08-05-2011 influenza virus vaccine, unspecified formulation Lanette Amato APRN.[facility] Work Phone: [facility] 07-05-2010 human papilloma viru s vaccine, quadrivalent Adore Dumont MD Work Phone: [facility] Work Phone: 07-05-2010 tetanus toxoid, redu alfred diphtheria toxoid, and acellular pertussis vaccine, adsorbed Adore Dumont MD Work Phone: [facility] Work Phone: 09-11-2007 influenza virus vaccine, unspecified formulation Adore Dumont MD Work Phone: [facility] Work Phone: 08-18-2007 human papilloma viru s vaccine, quadrivalent Adore Dumont MD Work Phone: [facility] Work Phone: 06-08-2007 human papilloma viru s vaccine, quadrivalent Adore Dumont MD Work Phone: [facility] Work Phone: 06-08-2007 Meningococcal, MCV4, unspecified conjugate formulation(groups A, C, Y and W-135) Adore Dumont MD Work Phone: [facility] Work Phone: 09-12-2005 influenza virus vaccine, unspecified formulation Adoer Dumont MD Work Phone: [facility] Work Phone: 08-30-2005 measles, mumps and rubella virus vaccine Adore Dumont MD Work Phone: [facility] 07-01-2004 diphtheria and tetan us toxoids, adsorbed for pediatric use Adore Dumont MD Work Phone: [facility] 04-06-1998 diphtheria, tetanus toxoids and acellular pertussis vaccine Adore Dumont MD Work Phone: [facility] Work Phone: 04-06-1998 measles, mumps and rubella virus vaccine Adore Dumont MD Work Phone: [facility] Work Phone: 04-06-1998 poliovirus vaccine, inactivated Adore Dumont MD Work Phone: [facility] Work Phone: 07-29-1996 diphtheria, tetanus toxoids and acellular pertussis vaccine Adore Dumont MD Work Phone: [facility] Work Phone: 07-29-1996 haemophilus influenz ae type b vaccine, HbOC conjugate Adore Dumont MD Work Phone: [facility] Work Phone: 07-29-1996 hepatitis B vaccine, pediatric or pediatric/adolescent dosage Adore Dumont MD Work Phone: [facility] Work Phone: 07-29-1996 poliovirus vaccine, inactivated Adore Dumont MD Work Phone: [facility] Work Phone: 1993 diphtheria, tetanus toxoids and acellular pertussis vaccine Adore Dumont MD Work Phone: [facility] Work Phone: 1993 haemophilus influenz ae type b vaccine, HbOC conjugate Adore Dumont MD Work Phone: [facility] Work Phone: 1993 hepatitis B vaccine, pediatric or pediatric/adolescent dosage Adore Dumont MD Work Phone: [facility] Work Phone: 1993 diphtheria, tetanus toxoids and acellular pertussis vaccine Adore Dumont MD Work Phone: [facility] Work Phone: 1993 haemophilus influenz ae type b vaccine, HbOC conjugate Adore Dumont MD Work Phone: [facility] Work Phone: 1993 poliovirus vaccine, inactivated Adore Dumont MD Work Phone: [facility] Work Phone: 1993 diphtheria, tetanus toxoids and acellular pertussis vaccine Adore Dumont MD Work Phone: [facility] Work Phone: 1993 haemophilus influenz ae type b vaccine, HbOC conjugate Adore Dumont MD Work Phone: [facility] Work Phone: 1993 poliovirus vaccine, inactivated Adore Dumont MD Work Phone: [facility] Work Phone: 1993 hepatitis B vaccine, pediatric or pediatric/adolescent dosage Adore Dumont MD Work Phone: [facility] Work Phone: Payers Date Payer Category Payer Medicaid (Managed Care) [facility] MEDICAID [id number] 2023 Self-pay [id number] 2022 Unknown [id number] 2019 Medicaid [id number] 1993 Unknown [id number] 1993 Unknown [id number] Unknown [employer] Unknown [id number] Unknown [id number] Unknown 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 Start: 09-18-2022 Tobacco smoking status NHIS Smokes tobacco daily [facility] Work Phone: History of tobacco use Cigarette Smoker [facility] Work Phone: Start: 09-18-2022 End: 10-03-2024 Cigarettes smoked current (pack per day) - Reported 0.5 [facility] Start: 09-18-2022 End: 09-25-2022 Alcohol intake Ex-drinker (finding) [facility] Start: 09-18-2022 Education 21 [facility] Start: 08-09-2022 [facility] Start: 09-08-2022 End: 09-18-2022 Exposure to SARS-CoV-2 (event) Not sure [facility] Work Phone: Start: 09-25-2022 End: 10-03-2024 Tobacco use panel [facility] Start: 10-17-2012 National Score (1-100), lower number is lower risk 71 [facility] NEGATED: Highlighted row [facility] Medical Equipment Procedure Code Equipment Code Equipment Origin al Text Equipment Identifier Dates ORIF, ankle 3.5 cortex screw FDA Start: 03-11-2023 ORIF, ankle 4.0mm cancellous bone screw part thread FDA Start: 03-11-2023 ORIF, ankle 4.0mm cannulated screw short thread FDA Start: 03-11-2023 ORIF, ankle plate 5 hole one third tubular FDA Start: 03-11-2023 ORIF, ankle 3.5 cortex screw FDA Start: 03-11-2023 ORIF, ankle 4.0mm cancellous bone screw part thread FDA Start: 03-11-2023 ORIF, ankle 4.0mm cannulated screw short thread FDA Start: 03-11-2023 ORIF, ankle plate 5 hole one third tubular FDA Start: 03-11-2023 Goals Date Patient Goal Desired Activity /State Mental Status Date Assessment Result Facility 03-11-2023 Cognitive function Level Of Cons ciousness Awake;Alert;Appropriate;Follow s Commands [facility] Work Phone: 03-11-2023 Cognitive function Patient Afsaneh jones Person;Place;Time [facility] Work Phone: 02-17-2023 Cognitive function Level Of Cons ciousness Awake;Alert;Appropriate;Follow s Commands [facility] Work Phone: Clinical Notes 09-11-2022 to 07-03-2025 Lanette Amato APRN.CLINICAL ADVISOR - 07/03/2025 4:49 PM EDTPatient InstructionsBoSofie basurto, Kerwin,PharmD - 05/11/2025 4:39 PM EDT Note Date & Type Note Facility 07-03-2025 Note HNO ID: [id number] Author: LANETTE AMATO APRN.CLINICAL ADVISOR Service: ? Author Type: Nurse Practitioner Type: Progress Notes Filed: 07/03/2025 16:54 Note Text: [facility] Chanell Mckay is a 30 year old female. Patient presents with: Neck Pain: Right shoulder pain x 2 days Neck Pain Neck Pain: - Acute onset of right-sided neck pain began yesterday after waking up. - Describes pain as nodulating and radiating into the right shoulder and down the back of the arm. - Pain is alleviated by holding the neck up; aggravated by turning the head. - Took ibuprofen yesterday and Aleve today, with some relief noted. - Denies known trauma; suspects pain may be related to sleeping position or driving a 5-speed car. - Concerned about the possibility of a pinched nerve. - Currently on day 4 of menstrual period; denies any chance of . - No history of asthma or diabetes. - Not taking any daily medications. Denies direct blow or injury Denies trauma PAST MEDICAL HISTORY Diagnosis Date ADHD (attention deficit hyperactivity disorder) No past surgical history on file. ALLERGIES Patient has no known allergies. MEDICATIONS predniSONE (DELTASONE) 10 mg tablet Take 4 tabs daily for 3 days, then 2 tabs daily for 3 days, then 1 tab daily for 3 days with food. cyclobenzaprine (FLEXERIL) 10 mg tablet Take 1 tablet by mouth every 8 hours as needed for up to 5 days. prental multivitamin 27 mg iron- 800 mcg tablet Take 1 tablet by mouth once daily. (Patient not taking: Reported on 07/03/2025) FAMILY HISTORY Problem Relation Age of Onset Hypertension Mother No Known Problems Father Asthma Brother Skin Cancer Maternal Grandmother No Known Problems Maternal Grandfather Heart Paternal Grandfather No Known Problems Son SOCIAL HISTORY[1] Review of Systems Musculoskeletal: Positive for neck pain. Musculoskeletal: (+) right-sided neck pain, (+) right shoulder pain, (+) radiating pain down posterior right arm, (+) neck and shoulder muscle tightness Objective BP 100/80 Pulse 92 Temp 37 ?C (98.6 ?F) Resp 18 Wt 68.5 kg (151 lb 0.2 oz) LMP 07/26/2022 (Exact Date) SpO2 98% Physical Exam Vitals and nursing note reviewed. Constitutional: General: She is not in acute distress. Appearance: Normal appearance. She is normal weight. She is not ill-appearing, toxic-appearing or diaphoretic. HENT: Head: Normocephalic and atraumatic. Right Ear: Ear canal and external ear normal. Left Ear: Ear canal and external ear normal. Nose: Nose normal. No congestion or rhinorrhea. Mouth/Throat: Mouth: Mucous membranes are moist. Pharynx: No oropharyngeal exudate or posterior oropharyngeal erythema. Eyes: General: Right eye: No discharge. Left eye: No discharge. Extraocular Movements: Extraocular movements intact. Conjunctiva/sclera: Conjunctivae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 Primary Referrals: Care Physician,No Primary [Primary Care Provider] - Dentist,Your [STAFF PHYSICIAN] - As soon as possible Disposition Disposition: Home, Self Care What to do if you have Problems For any increased pain, shortness of breath, bleeding, nausea or vomiting, chestpain, or any unexpected problems, contact your Primary Care Provider. Call [facility] ([phone]) or report to the closest Emergency Room. Call 911 if necessary. 02/17/23 1536 <Electronically signed by Pio Arambula MD> Cosigner Signature (if applicable): CC: No Primary Care Physician ~ Signed [facility] Work Phone: 1(183) 526-355702-10-2023 Miscellaneous Notes* Telephone Encounter - Paige Sal RN - 12/26/2022 10:56 AM EST Tried calling again and voicemail is still full. HOLA FYI- attempted to call 4 times, sent [employer] message (she didn't read yet) and letter. Encounterclosed. Paige Sal RN * Telephone Encounter - Paige Sal RN - 12/24/2022 10:36 AM EST Attempted to call patient. Unable to leave message-mailbox is now full. Paige Sal RN * Telephone Encounter - Sherry Duval RN - 12/19/2022 3:53 PM EST 2nd attempt. No answer and unable to leave a voicemail. Mailbox is full. Sherry Duval RN * Telephone Encounter - Paige Sal RN - 12/17/2022 9:14 AM EST Left message for patient to call office. Paige Sal RN * Telephone Encounter - Paige Sal RN - 12/17/2022 9:14 AM EST ----- Message from Lanette Garzon APRN.CNM sent at 12/17/2022 8:22 AM EST ----- Please have patient get serum quant this week. Please have her schedule follow up visit to discuss future plans and miscarriage. This can be virtual. Thank you, Lanette Garzon APRN.CNM documented in this encounterAult[facility] Hospital01-26-2023 Miscellaneous Notes* Telephone Encounter - Jovita Cabrera LPN - 12/11/2022 5:00 PM EST Patient notified * Telephone Encounter - Jovita Cabrera LPN - 12/11/2022 11:11 AM EST Left message to call office * Telephone Encounter - Mervat Juarez MD - 12/11/2022 10:11 AM EST Decreasing hcg quants are consistent with an early miscarriage. Would she like to schedule a followup visit? Would recommend a repeat hcg quant next week but could discuss that at follow up visit. Mervat Juarez MD * Telephone Encounter - Sherry Duval RN - 12/11/2022 9:39 AM EST Please review. Thank you. hCG Quantitative, Blood (mIU/mL) Date Value 12/10/2022 79.9 12/08/2022 180.6 * Telephone Encounter - Sherry Duval RN - 12/09/2022 11:41 AM EST hCG Quantitative, Blood (mIU/mL) Date Value 12/08/2022 180.6 Serum level is positive for . Repeat on 12/10/22. Will follow up with patient after results. Please review bleeding precautions and send to provider oncology account specialist. Thanks. Lanette Garzon APRN.CNM Patient notified. Please have provider oncology account specialist review 12/10/22 HCG result. * Telephone Encounter - Kelsey See RN - 12/08/2022 9:13 AM EST Patient notified and voiced understanding. Bleeding precautions reviewed. Keep note open for HCG Quant results. Kelsey See RN * Telephone Encounter - Lanette Garzon APRN.CNM - 12/08/2022 9:09 AM EST Please have patient get serum quant today and repeat in 48 hrs. Will call patient after 2nd result with plan. Please keep open and review with provider or oncology account specialist provider after 2nd result. Please review bleeding precautions. Lanette Garzon APRN.CNM * Telephone Encounter - Tara Holloway RN - 12/08/2022 8:41 AM EST Pt calling in stating that she had her LMP beginning of October. Had miscarriage in September. Had + test on Wednesday 12/06. Started bleeding and cramping yesterday. Has BRB when wipes. Cramping last night was a 7, no pain today.Would like quants drawn. Please advise documented in this encounterAult[facility] Hospital11-10-2022 Miscellaneous Notes* Telephone Encounter - Nadine Thomas MD - 09/25/2022 12:36 PM EST Yes thanks * Telephone Encounter - Paige Sal RN - 09/25/2022 12:08 PM EST Attempted to call patient. Unable to leave message-voicemail not set up yet. - patient has not had follow up hcg quant or scheduled appointment. She is aware both are needed already. Ok to close encounter? Paige Sal RN * Telephone Encounter - Paige Sal RN - 09/24/2022 2:42 PM EST Patient viewed [employer] message. Has not had blood work yet. Took hold off appointment time with SW tomorrow since lab result would not be back by then. Will wait for patient to call office. Paige Sal RN * Telephone Encounter - Paige Sal RN - 09/24/2022 8:39 AM EST Attempted to call patient. Unable to leave message-voicemail not set up yet. Patient did not get hcg quant done yesterday or schedule f/u appointment this week for after that result is back. Paige Sal RN * Telephone Encounter - Paige Sal RN - 09/23/2022 4:00 PM EST Attempted to call patient. Unable to leave message-voicemail not set up. Placed 09/25/22 2:20 with SW on hold for patient if that works. Minimal appointments left this week. Patient still has not gotten lab done today either. Paige Sal RN * Telephone Encounter - Paige Sal RN - 09/22/2022 4:27 PM EST Patient notified to get repeat lab done tomorrow and aware she needs follow up visit this week withprovider then. She stated phone may during call and that she will call back to schedule if it does. Phone call did cut off prior to scheduling. Paige Sal RN * Telephone Encounter - Paige Sal RN - 09/22/2022 4:27 PM EST ----- Message from Nadine Thomas MD sent at 09/22/2022 4:11 PM EST ----- Please notify pt that unfortunately HCG levels decreasing consistent with non viable . Recommend repeat HCG level tomorrow with visit in office this week preferably after HCG quant results documented in this encounterAult[facility] Hospital11-07-2022 Miscellaneous Notes* Telephone Encounter - Nadine Thomas MD - 09/22/2022 8:36 PM EST HCG quant ordered See result note documented in this encounterAultman Hospital11-03-2022 History of Present illness Narrative* Tara Holloway RN - 09/18/2022 4:38 PM EDT # 1 - Date: [birth year], Sex: Male, Weight: 5 lb 11 oz (2.58 kg), GA: 38w5d, Delivery: Vaginal, Spontaneous, Apgar1: None, Apgar5: None, Living: Living, Comments: bleeding in early ,Had PTL @35 weeks # 2 - Date: None, Sex: None, Weight: None, GA: None, Delivery: None, Apgar1: None, Apgar5: None, Living: None, Comments: None documented in this encounterAult[facility] Hospital11-03-2022 Miscellaneous Notes* Quick Notes - Tara Holloway RN - 09/18/2022 4:38 PM EDT DISTANCE HEALTH VISIT This Team Access Model visit is a phone encounter. It required patient-provider interaction for themedical decision making as documented below. Father of the baby involved. Patient called in today stating she has had some spotting in . Quantitative hCG was done today. Patient states she has a history of labor with her last at 35 weeks. She went on to deliver at term.Ptsmokes 1/2 pack a day of cigarettes down from 1 pack a day. Discussed risks of smoking during . Advised pt to quit. [place] tobacco quit line information given and [facility]'s smoking cessation program also discussed. Patient states she stopped using marijuana when she found out she was . Patient states she has a history of alcohol abuse in her past from ages [age].She states she did go to outpatient rehab in 2019. Discussed risks of drinking alcohol during and particular alcohol syndrome. And I have advised patient to continue not using alcohol. Patient declines aneuploidy screening. Desires genetic carrier screening testing. Contact information for [facility] given to patient.Tara Holloway RN documented in this encounterAultman Hospital11-03-2022 Miscellaneous Notes* Telephone Encounter - Julieta Ayala LPN - 09/18/2022 2:32 PM EDT Pt notified of instructions below. Pt voiced understanding and will have labs done either today or tomorrow. Julieta Ayala LPN * Telephone Encounter - Nadine Thomas MD - 09/18/2022 2:21 PM EDT HCG quant filed Given miscarriage and ectopic precautions * Telephone Encounter - Sherry Duval RN - 09/18/2022 1:05 PM EDT LMP 07/26/22 Approximately 7w4d Calling to report that she had light bleeding/spotting last week through this past Thursday.It was light red to brown in color. Denies having cramping or recent intercourse at that time. Asking if she should move her NOB visit up sooner. Has PNOB today at 4PM and NOB with DM on 09/23. Would you like to order HCG levels? Sherry Duval RN documented in this encounterAultman Hospital10-27-2022 Miscellaneous Notes* Telephone Encounter - Tara Holloway RN - 09/11/2022 5:19 PM EDT Attempted to call patient to reschedule appointment. Unable to leave voicemail because it has not been set up yet * Telephone Encounter - Tara Holloway RN - 09/11/2022 9:25 AM EDT I called patient to complete PNOB visit today and she states she is unable to do this. She states she is in meetings today.Please assist patient in rescheduling appointment when she calls back documented in this encounterAultman HospitalDischarge summary Author Dr. Hawthorne [facility] March 06, 2023 2:29am Note Date/Time March 06, 2023 2:2 7am [facility] Medical Records Department [address] [place] [address] Emergency Department Summary 03/06/23 MR#: [id number] Acct: [id number] Name: SACHI MCKAY Rep #:[id number] : 1995 27 From: Santy Hawthorne MD PCP: Care Physician,No Primary Status :REG ER Location: ED HPI History of Present Illness Chief Complaint: Lower Extremity Injury Narrative Narrative: Presents with right ankle pain after a fall. She cannot bear any weight. No head injury no knee pain no proximal fibular tenderness. She is denying any other injuries. PFSH PFSH Home Medications penicillin V potassium 250 mg tablet 500 mg PO 4X/DAY #40 tabs 02/16/23 [Rx Last Taken Unknown] clindamycin HCl 300 mg capsule (Cleocin HCl) 300 mg PO Q6H #28 CAPSULES 02/17/23[Rx Last Taken Unknown] hydrocodone-acetaminophen 5-325mg 5mg-325mg 1 tab PO Q4H PRN PRN Pain 2 days #10TABLETS 02/17/23 [Rx Last Taken Unknown] ibuprofen 600 mg tablet 600 mg PO Q6H PRN PRN pain #20 TABLETS 02/17/23 [Rx Last Taken Unknown] hydrocodone-acetaminophen 5-325mg 5mg-325mg 1 tab PO Q4H PRN PRN Pain 3 days #12TABLETS 03/06/23 [Rx Last Taken Unknown] Allergy/AdvReac Type Severity Reaction Status Date / Time No Known Allergies Allergy Verified 02/17/23 14:33 Social History Smoking Status: Current every day smoker tobacco type: cigarettes ROS ROS ED ROS Narrative Past medical history: none Medications: Reviewed Social history: Noncontributory Review of systems: Musculoskeletal: Right ankle pain Skin: Slight abrasion over her thigh on the right Neurological: No weakness or paresthesias Hematologic: No easy bleeding or easy bruising EXAM Physical Exam Narrative Exam Narrative: Physical exam General: Patient does not appear in significant distress . Head: Normocephalic, Atraumatic Neck: No C-spine tenderness Cardiovascular: Normal distal pulses Back: Nontender, Normal Inspection. Extremities: Tenderness throughout the entire right ankle and some swelling. Distally neurovascularly intact Skin: Small right thigh abrasion laterally Neurological: Normal strength and sensation Const Vital Signs: 03/06/23 01:20 Temperature 98.2 F Temperature Source Temporal Pulse Rate 113 H Respiratory Rate 20 H Blood Pressure 118/81 H Blood Pressure Mean 93 Pulse Ox 93 Oxygen Delivery Method Room Air MDM MDM MDM Narrative Medical decision making narrative: I discussed the patient with boyfriend and friend in the room. They gave me some of the history. At this time patient has a right ankle fracture that is bimalleolar and somewhat unstable. Patient was splinted and I will give her crutches and a orthopedic referral. I will give her analgesia for home. I thought about talking to the orthopedic surgeon however its 2:25 AM in the middle of the night and I believe this can wait till the morning to the patient can call she will need surgery however I do not believe I need to wake up the orthopedic surgeon at this hour. Radiography Diagnostic Testing: Clinical Impression(s) from Imaging Studies Ankle X-Ray 03/06/23 01:30 IMPRESSION: Unstable configuration of right ankle fractures with multifocal articular involvement. Intra-articular fracture fragment. Presumed disruption of the interosseous ligament. Electronically Signed: Jyotsna Bentley MD at 1:49 EDT , X-ray read by me as a bimalleolar fracture however it appears unstable and may be a try mall equivalent Procedures Other Procedures Procedure(s): Splinting Indication ankle fracture Verbal consent A sugar-tong and posterior splint were placed by me. Patient's pain improved. She tolerated procedure well Discharge Plan Triage Chief Complaint: Lower Extremity Injury ED Provider: Santy Hawthorne Dx/Rx/DC Orders Clinical Impression: Bimalleolar ankle fracture, Fall Instructions: ED Ankle Fracture Prescriptions: New hydrocodone-acetaminophen 5-325 mg tablet 1 tab PO Q4H PRN PRN (Reason: Pain) 3 Days Qty: 12 0RF No Action penicillin V potassium 250 mg tablet 500 mg PO 4X/DAY Qty: 40 0RF clindamycin HCl [Cleocin HCl] 300 mg capsule 300 mg PO Q6H Qty: 28 0RF hydrocodone-acetaminophen [hydrocodone-acetaminophen] 5-325 mg tablet 1 tab PO Q4H PRN PRN (Reason: Pain) 2 Days Qty: 10 0RF ibuprofen 600 mg tablet 600 mg PO Q6H PRN PRN (Reason: pain) Qty: 20 0RF Primary Care Provider: Care Physician,No Primary Referrals: Ramesh Perry MD [Med Staff - Active Staff] - 2 Days Care Physician,No Primary [Primary Care Provider] - Disposition Disposition: Home, Self Care What to do if you have Problems For any increased pain, shortness of breath, bleeding, nausea or vomiting, chestpain, or any unexpected problems, contact your Primary Care Provider. Call [facility] ([phone]) or report to the closest Emergency Room. Call 911 if necessary. 03/06/23228 <Electronically signed by Santy Hawthorne MD> Cosigner Signature (if applicable): CC: No Primary Care Physician ~ Signed [facility] Work Phone: Discharge summary Author Tiburcio Asencio [facility] August 14, 2023 4:03am Note Date/Time August 14, 2023 2:59am [facility] Medical Records Department [address] [place] [address] Emergency Department Summary 08/14/23 MR#: [id number] Acct: [id number] Name: SACHI MCKAY Rep #:[id number] : 1995 28 From: Tiburcio Asencio DO PCP: Care Physician,No Primary Status :REG ER Location: ED HPI History of Present Illness Chief Complaint: Nausea/Vomiting/Diarrhea Informant: patient Narrative Narrative: Patient is a 28-year-old female with history of IBS. She states that for the past 3 to 4 hours she has been having multiple bouts of nausea and vomiting and she cannot even hold down water. She states there was 1 episode of loose stool/diarrhea as well. She denies any known sick contacts. She denies any fevers or chills. She states that as she cannot hold and then down she is concerned for dehydration with this comes in for evaluation. Patient states there was no blood or discoloration to her emesis. She denies any concern for . PFSH PFS Medical History History of edema History of IBS Smoker Home Medications dicyclomine 20 mg tablet 20 mg PO 4X/DAY PRN PRN Abdominal pain/spasm #28 tabs 08/14/23 [Rx Last Taken Unknown] ondansetron 4 mg disintegrating tablet 4 mg PO TID PRN nausea and vomiting #21 tabs 08/14/23 [Rx Last Taken Unknown] Allergy/AdvReac Type Severity Reaction Status Date / Time No Known Allergies Allergy Verified 08/14/23 02:24 Social History (Updated 03/09/23 @ 14:02 by Mercedez Hoang) household members: family Smoking Status: Current every day smoker tobacco type: cigarettes alcohol intake: current ROS ROS ED Constitutional Constitutional ED: Denies chills or fever(s) ENT ENT ED: Denies sore throat Cardiovascular Cardiovascular: Denies chest pain Respiratory/Chest Respiratory/Chest: Denies cough or dyspnea Gastrointestinal Gastrointestinal: Reports abdominal pain, diarrhea, nausea and vomiting Genitourinary Genitourinary ED: Denies dysuria Musculoskeletal Musculoskeletal: Reports myalgias Integumentary Denies rash Neurologic Neurologic: Denies headache(s) Hematologic/Lymphatic Hematologic/Lymphatic: Denies easy bleeding or easy bruising EXAM Physical Exam Const Vital Signs: 08/14/23 02:24 Temperature 96.7 F L Temperature Source Temporal Pulse Rate 69 Respiratory Rate 18 Blood Pressure 131/98 H Blood Pressure Mean 109 Pulse Ox 100 Positive well nourished and well developed General Appearance ED: well developed HEENT Reports dry mucous membranes HEENT Narrative: Mucous membranes are dry and tacky without secondary changes to suggest infection Mouth ED: Yes dry mucous membranes Mouth: dry mucous membranes Eyes PERRL and EOMs intact bilaterally General Eye ED: Negative for scleral icterus Neck supple Resp normal respiratory effort and clear to auscultation bilaterally Cardio regular rate and regular rhythm Rate: other Other Details: Radial and carotid pulses are equal and symmetric GI non-distended GI Narrative: Abdomen is soft and nondistended with hyperactive bowel sounds. There is mild diffuse pain on palpation without voluntary guarding or rigidity. Auscultation: hyperactive bowel sounds Palpation: soft Extremity normal to inspection Neuro oriented x3, CN's II-XII intact bilaterally and no sensory deficits noted Sensorium / Orientation: alert Motor Exam: strength 5/5 throughout Psych mental status grossly normal Skin no rashes or lesions noted Skin Narrative: Skin turgor is slightly increased General Skin Exam: Negative for jaundice MDM MDM MDM Narrative Medical decision making narrative: Patient presented to the ER slightly hypertensive otherwise afebrile. She reported 3 to 4 hours of of recurrent vomiting with 1 episode of loose stool/diarrhea. Her abdomen is soft and nonsurgical and therefore do not feel there is need for emergent imaging studies. However his differential diagnosis is for pancreatitis versus biliary colic versus versus gastroenteritisI did elect to check basic laboratory studies. Labs revealed no clinically significant findings. After treatment with Zofran patient had no further bouts of vomiting after one 1 L of normal saline reported feeling better. On reevaluation abdomen remains soft and nonsurgical and therefore she is otherwisesafe for discharge. History & Record Review Discussion w/independent historian: Patient Lab Data Attestation: I reviewed the patient's lab results. Labs: Laboratory Results - last 24 hr 08/14/23 02:59 WBC 11.5 H RBC 4.69 Hgb 14.4 Hct 42.6 MCV 90.8 MCH 30.7 MCHC 33.8 RDW Std Deviation 42.2 RDW Coeff of [place] 12.9 Plt Count 356 MPV 8.4 Immature Gran % (Auto) 0.300 Neut % (Auto) 77.0 H Lymph % (Auto) 15.7 L [place] % (Auto) 6.3 Eos % (Auto) 0.3 Baso % (Auto) 0.4 Absolute Neuts (auto) 8.9 H Absolute Lymphs (auto) 1.81 Nucleated RBC % 0 Sodium 138 Potassium 3.8 Chloride 106 Carbon Dioxide 30.0 Anion Gap 2 L BUN 11 Creatinine 0.51 L Estim Creat Clear Calc 151.00 Est GFR (MDRD) Af Amer 183 Est GFR (MDRD) Non-Af 151 BUN/Creatinine Ratio 21.7 H Glucose 107 H Calcium 8.2 L Total Bilirubin 0.20 Direct Bilirubin 0.08 AST 9 L ALT 20 Alkaline Phosphatase 88 Total Protein 7.1 Albumin 3.4 Globulin 3.7 Lipase 15 Serum , Qual NEGATIVE Discharge Plan Triage Chief Complaint: Nausea/Vomiting/Diarrhea ED Provider: Tiburcio Asencio Dx/Rx/DC Orders Clinical Impression: Nausea & vomiting, Dehydration Instructions: ED Dehydration (Adult), ED Vomiting and Diarrhea ... Prescriptions: New dicyclomine 20 mg tablet 20 mg PO 4X/DAY PRN PRN (Reason: Abdominal pain/spasm) Qty: 28 0RF ondansetron 4 mg tablet,disintegrating 4 mg PO TID PRN (Reason: nausea and vomiting) Qty: 21 0RF Primary Care Provider: Care Physician,No Primary Referrals: Care Physician,No Primary [Primary Care Provider] - Activity Restrictions/Additional Instructions: Please use the medication as directed to help control your symptoms and keep yourself well-hydrated. If you have any further concerns please return to the ER for repeat evaluation Disposition Disposition: Home, Self Care What to do if you have Problems For any increased pain, shortness of breath, bleeding, nausea or vomiting, chestpain, or any unexpected problems, contact your Primary Care Provider. Call [facility] ([phone]) or report to the closest Emergency Room. Call 911 if necessary. 08/14/23 0403 <Electronically signed by Tiburcio Asencio DO> Cosigner Signature (if applicable): CC: No Primary Care Physician ~ Signed [facility] Work Phone: Evaluation noteNo assessment information available [facility] Work Phone: Evaluation note* Diagnosis Bleeding in early - Primary Unspecified hemorrhage in early , unspecified as to episode of care [facility] Diagnosis Supervision of high risk , antepartum- Primary Spotting in Spotting complicating , unspecified as to episode of care or not applicable Risk of labor during , antepartum Tobacco use during , antepartum Marijuana use during History of alcohol abuse Nondependent alcohol abuse, in remission Patient request for diagnostic testing Other specified examination [facility] Early stage of - Primary state, incidental [facility] Diagnosis Spotting in - Primary Spotting complicating , unspecified as to episode of care or not applicable [facility] Diagnosis Onset Date Resolution Status Bimalleolar ankle fracture a cute Bimalleolar ankle fracture a cute [facility] Work Phone: Evaluation note* Diagnosis Onset Date Resolution Status Bimalleolar ankle fracture a cute Bimalleolar ankle fracture a cute Bimalleolar ankle fracture a cute [facility] Work Phone: Evaluation note* Diagnosis Acute strain of neck muscle, initial encounter- Primary Muscle spasm Spasm of muscle [facility] Additional Instructions Follow-up with your dentist on the sixth as scheduled.[facility] Work Phone: Hospital Discharge instructions Additional Instructions Please use the medication as directed to help control your symptoms and keep yourself well-hydrated. If you have any further concerns please return to the ER for repeat evaluation [facility] Work Phone: Summary Purpose Family History No Family History Records FoundNo Family History Records FoundNo Family History Records FoundNo Family History Records FoundNo Family History Records Found Advance Directives Advance Directive Response Recorded Date/ Time Living Will No March 28, 2022 1 1:40pm Power of Ampoule Sealer No March 28, 2022 11:40pm Advance Directive Response Recorded Date/ Time Living Will No February 16, 2023 12:20pm Power of Ampoule Sealer No February 16 12:20pm Advance Directive Response Recorded Date/ Time Living Will No February 17, 2023 2:32pm Power of Ampoule Sealer No February 17 2:32pm Advance Directive Response Recorded Date/ Time Living Will No March 06, 2023 1:41am Power of Ampoule Sealer No March 06 1:41am Advance Directive Response Recorded Date/ Time Living Will No March 06, 2023 10:38am Power of Ampoule Sealer No March 06 10:38am Advance Directive Response Recorded Date/ Time Living Will No March 10, 2023 8:38am Power of Ampoule Sealer No March 10 8:38am Advance Directive Response Recorded Date/ Time Living Will No August 14, 2023 2:26am Power of Ampoule Sealer No July 2:26am Chief Complaint and Reason for Visit Chief Complaint S/P FALL Chief Complaint DENTAL Chief Complaint DENTAL facial swelling Chief Complaint DENTAL facial swelling Lower Extremity Chief Complaint DENTAL facial swelling Lower Extremity right foot injury Chief Complaint DENTAL facial swelling Lower Extremity right foot injury RIGHT ANKLE RM 4 RT ANKLE FRACTURE Reason for Visit Bimalleolar ankle fr acture Bimalleolar ankle fracture Chief Complaint DENTAL facial swelling Lower Extremity right foot injury RIGHT ANKLE RM 4 RT ANKLE FRACTURE right ankle Reason for Visit Bimalleolar ankle fr acture Bimalleolar ankle fracture Bimalleolar ankle fracture Chief Complaint N/V Additional Source Comments <item> Privacy Markings (unrecogniz ed section and content) Section Author: Zulma Montoya PROHIBITION ON REDISCLOSURE OF CONFIDENTIAL INFORMATION This notice accompanies a disclosure of information concerning a client made to you with the consent of such client. INFORMATION SOURCE (unrecogn ized section and content) DATE CREATED AUTHOR 03/20/2021 [facility] DATE CREATED AUTHOR AUTHOR'S ORGANIZ ATION 04/07/2023 [facility] DATE CREATED AUTHOR AUTHOR'S ORGANIZ ATION 05/30/2024 [facility] DATE CREATED AUTHOR AUTHOR'S ORGANIZ ATION 06/20/2025 [facility] DATE CREATED AUTHOR AUTHOR'S ORGANIZ ATION 07/04/2025 [facility] Goals (unrecognized section and content) Goals may be documented in a n alternate sectionGoals may be documented in an alternate sectionGoals may be documented in an alternate sectionGoals may be documented in an alternate sectionGoals may be documented in an alternate sectionGoals may be documented in an alternate section Source Comments (unrecognize d section and content) In the event this informatio n is protected by the Federal Confidentiality of Alcohol and Drug Abuse Patient Records regulations: The Federal rules restrict any use of the information to criminally investigate or prosecute any alcohol or drug abuse patient.[facility] the event this information is protected by the Federal Confidentiality of Alcohol and Drug Abuse Patient Records regulations: The Federal rules restrict any use of the information to criminally investigate or prosecute any alcohol or drug abuse patient.[facility] the event this information is protected by the Federal Confidentiality of Alcohol and Drug Abuse Patient Records regulations: The Federal rules restrict any use of the information to criminally investigate or prosecute any alcohol or drug abuse patient.[facility] the event this information is protected by the Federal Confidentiality of Alcohol and Drug Abuse Patient Records regulations: The Federal rules restrict any use of the information to criminally investigate or prosecute any alcohol or drug abuse patient.[facility] the event this information is protected by the Federal Confidentiality of Alcohol and Drug Abuse Patient Records regulations: The Federal rules restrict any use of the information to criminally investigate or prosecute any alcohol or drug abuse patient.[facility] the event this information is protected by the Federal Confidentiality of Alcohol and Drug Abuse Patient Records regulations: The Federal rules restrict any use of the information to criminally investigate or prosecute any alcohol or drug abuse patient.[facility] the event this information is protected by the Federal Confidentiality of Alcohol and Drug Abuse Patient Records regulations: The Federal rules restrict any use of the information to criminally investigate or prosecute any alcohol or drug abuse patient.[facility] the event this information is protected by the Federal Confidentiality of Alcohol and Drug Abuse Patient Records regulations: The Federal rules restrict any use of the information to criminally investigate or prosecute any alcohol or drug abuse patient.[facility] Reason for Visit (unrecogniz ed section and content) Reason Comments Missed Appointment Reason Comments Early OB spotting Reason Comments Care Reason Comments Orders Reason Comments Results Reason Comments HCG Reason Comments Neck Pain Right shoulder pain x 2 days Care Teams (unrecognized sec tion and content) Home Lighting Adviser Relationship Specialty Start Date End Date Jessie Holley MD [address] [place] [address] PCP - General Internal Medicine 12/08/22 Home Lighting Adviser Relationship Specialty Start Date End Date Jessie Holley MD [address] [place] [address] PCP - General Internal Medicine 12/08/22 Team Status: Active Member Role Status Dates No Primary Care Physician Family Provider Active No Primary Care Physician Primary Care Provider Active Team Status: Inactive Member Role Status Dates No Primary Care Physician Primary Care Provider Active Dr. Sherry Butterfield MD Emergency Provider Active Team Status: Inactive Member Role Status Dates No Primary Care Physician Primary Care Provider Active Dr. Pio Arambula MD Emergency Provider Active Team Status: Inactive Member Role Status Dates No Primary Care Physician Primary Care Provider Active Dr. Sherry Butterfield MD Attending Provider, Emergency Provider Active Team Status: Inactive Member Role Status Dates No Primary Care Physician Primary Care Provider Active Dr. Pio Arambula MD Attending Provider, Emergency Provi robinson Active Team Status: Inactive Member Role Status Dates No Primary Care Physician Primary Care Provider Active Dr. Santy Hawthorne MD Emergency Provider Active Team Status: Inactive Member Role Status Dates No Primary Care Physician Primary Care Provider Active Dr. Shukri Henson MD Referring Provider, Emergency Pro vider Active Team Status: Inactive Member Role Status Dates No Primary Care Physician Primary Care Provider, Refer ring Provider Active Carl Finnegan MD Attending Provider Active Team Status: Inactive Member Role Status Dates No Primary Care Physician Primary Care Provider Active Dr. Rufus Richardson MD Attending Provider Active Team Status: Active Member Role Status Dates No Primary Care Physician Primary Care Provider Active Carl Finnegan MD Attending Provider, Referring Provider, Other Provider Active Team Status: Inactive Member Role Status Dates No Primary Care Physician Primary Care Provider Active Dr. Santy Hawthorne MD Attending Provider, Emergency Pr ovider Active Team Status: Inactive Member Role Status Dates No Primary Care Physician Primary Care Provider Active Dr. Shukri Henson MD Attending Provider, Referring Provider, Emergency Provider Active Team Status: Active Member Role Status Dates No Primary Care Physician Primary Care Provider Active Carl Finnegan MD Attending Provider, Referring Prov ider Active Team Status: Inactive Member Role Status Dates No Primary Care Physician Primary Care Provider Active Carl Finnegan MD Attending Provider, Referring Prov ider Active Team Status: Inactive Member Role Status Dates No Primary Care Physician Primary Care Provider Active Dr. Tiburcio Andes , DO Emergency Provider Active Home Lighting Adviser Relationship Specialty Start Date End Date Jessie Holley MD [address], [place] [id number] PCP - General Internal Medicine 12/08/22 Christine Price APRN.CLINICAL ADVISOR [address] [place], [place] [id number] Information Technology Data Analyst Family [facility] 10/24/24 Maria Elena Perez [email or web address].[email or web address] ADVISOR [address], [place] [id number] [facility] 10/24/24 Home Lighting Adviser Relationship Specialty Start Date End Date No, Physician [facility] PCP - General 05/10/25 FOR RECORDS PERTAINING TO PATIENTS WHO ARE OR HAVE BEEN ENROLLED IN A CHEMICAL DEPENDENCY/SUBSTANCEABUSE PROGRAM, SOME INFORMATION MAY BE OMITTED. This clinical summary was aggregated from multiple sources. Caution should be exercised in using it in the provision of clinical care. This summary normalizes information from multiple sources, and as a consequence, information in this document may materially change the coding, format and clinical context of patient data. In addition, data may be omitted in some cases. CLINICAL DECISIONS SHOULD BE BASED ON THE PRIMARY CLINICAL RECORDS. [facility] [employer] [facility]. provides no warranty or guarantee of the accuracy or completeness of information in this document.
[2025-07-22 00:54] LABS: Internal QC Validated? YES +Cl - CLEAR BKGD; Pregnancy, Serum, hCG Quali. NEGATIVE Negative; Record Kit Lot#, Serum Preg. 0000947241
[2025-07-22 01:05] LABS: Alcohol, Blood (Medical)-Serum 38.8 mg/dL (<=10.0)
[2025-07-22 01:06] LABS: Anion Gap 11 (5-15); BUN 11 mg/dL (4-19); BUN/Creat Ratio 25.5 RATIO (10-20); Calcium,Total 8.3 mg/dL (7.6-11.0); Carbon Dioxide 22.2 mmol/L (21.0-32.0); Chloride 104 mmol/L (98-108); Estimated Creatinine Clearance 171.84 ml/min (50-250); Glucose 95 mg/dL (70-99); Potassium 3.9 mmol/L (3.3-5.1)
[2025-07-22 01:38] LABS: Barbiturate Urine NEGATIVE (< 200 ng/mL); Benzodiazepine Urine NEGATIVE (< 200 ng/mL); PCP Urine NEGATIVE (< 25 ng/mL); THC Urine PRESUMPTIVE POSITIVE (< 50 ng/mL)
--- NOTE | 2025-07-22 01:59 | PCM.HP.STD ---
HPI - General General Date of Admission: 07/22/25 Date of Service: 07/22/25 Chief Complaint: EtOH detoxification/acute withdrawal, polysubstance abuse with meth/cocaine. HPI Narrative The patient is a 30 /o F w/ PMHx: EtOH abuse, Polysubstance abuse (methamphetamine, cocaine), IBS, Tobacco use who presents to the [facility] on 07/22/25 w/ noted acute EtOH withdrawal, onset starting over the last several hours following last EtOH intake evening prior to ED presentation at approximately 5 PM drinking normal at least 6-12 twisted teas/beers daily with onset of nausea, emesis as well as dry heaves, muscle aches, rhinorrhea although patient does report that previous to this both her and her boyfriend with whom she lives with have both had upper respiratory type infections starting with head congestion, sinus pressure, body aches as well as postnasal drip with coughing of note but no fevers or chills prompting ED evaluation for detox admission request. Patient notes she is interested in attaining sober status. Workup in the ED included T98.5, heart rate 95, BP 122/88, respiratory rate 16, 100% on room air, CBC with WC 10.3, Hgb 12.9, platelet 348 without marked shift, BMP with BUN/creatinine 11/0.44, GFR 132 otherwise unremarkable, serum test negative, ethyl alcohol 38.8, UDS with cocaine, cannabis presumptive positive, EKG sinus rhythm with no acute evidence of ischemia. [facility] Medical History Polysubstance abuse Alcohol abuse IBS (irritable bowel syndrome) Tobacco use Home Medications ?Medication ?Instructions ?Recorded ?Last Taken ?Type NK 07/21/25 Unknown History Allergy/AdvReac Type Severity Reaction Status Date / Time No Known Allergies Allergy Verified 07/21/25 23:32 Family History (Updated 07/22/25 @ 02:[address] Smiley Swift MD) Mother Cancer Hx Skin CA. Hypertension Father No problems noted. Surgical History History of ankle surgery Social History household members: family Smoking Status: Current every day smoker tobacco type: cigarettes alcohol intake: current alcohol intake frequency: 3 or more drinks per day details: 6-12 twisted tea/beers daily. substance use type: crack/cocaine and amphetamines ROS ROS Narrative Admission Review of Systems: CONSTITUTIONAL: No weight loss, fever, chills, + weakness or fatigue. HEENT: + Rhinorrhea, congestion, head pressure/sinus facial pressure with headache. Eyes: No visual loss, blurred vision, double vision or yellow sclerae. Ears, Nose, Throat: No hearing loss, sneezing, sore throat. SKIN: No rash or itching, lesions, wounds except + occasional stage ecchymoses, abrasion. CARDIOVASCULAR: No chest pain, chest pressure or chest discomfort, palpitations, edema, orthopnea, syncopal events. RESPIRATORY: + Post-nasal drip w/ cough occasionally productive. No shortness of breath, wheezing, hemoptysis. GASTROINTESTINAL: + anorexia, nausea, vomiting, history of chronic IBS symptoms. No abdominal pain, melena, BRBPR. GENITOURINARY: No dysuria, frequency, urgency or retention. NEUROLOGICAL: + Headache. No dizziness, syncope, paralysis, ataxia, numbness or tingling in the extremities, focal weakness, change in bowel or bladder control, seizure. MUSCULOSKELETAL: + muscle, back pain, joint pain or stiffness. HEMATOLOGIC: No anemia, bleeding or bruising. LYMPHATICS: No enlarged nodes. No history of splenectomy. PSYCHIATRIC: No history of depression or anxiety. ENDOCRINOLOGIC: No reports of sweating, cold or heat intolerance. No polyuria or polydipsia. ALLERGIES: No history of asthma, hives, eczema or rhinitis. Vital Signs Vital Signs Vital Signs: 07/21/25 23:32 07/22/25 01:51 Temperature 98.5 F 97.8 F Temperature Source Oral Oral Pulse Rate 95 85 Respiratory Rate 16 13 Blood Pressure 122/88 H 105/80 Blood Pressure Mean 99 88 Pulse Ox 100 99 Oxygen Delivery Method Room Air Room Air Weight Weight: 156 lb 4.8 oz Body Mass Index (BMI) 25.2 Physical Exam Narrative Physical Examination: General: Awake, alert, oriented x 3 and cooperative, laying in the ED bed, fatigued, mildly restless, very mild tremors evident. Skin: Normal color, normal turgor, no icterus, no cyanosis except occasional stage ecchymoses, abrasion. HEENT: AT/NC, EOMI, PERRLA, moderately dry MM, no carotid bruits or JVD noted. Lungs: Mildly diminished, greater bases, cough elicited with deep inspiratory effort, no appreciated rales, ronchi or wheezing. Heart: Regular rate and rhythm; no gallop, rub audible. Abdomen: Soft, NTTP, ND, hyperactive S, no markedly appreciated HSM. Extremities: No cyanosis, clubbing, or edema. Neurological: Patient awake, alert, oriented as noted, cognitive function intact; pupils equally reactive to light and accommodation, cranial nerves grossly normal, moving all 4 extremities, no focal deficits, strength mildly globally creased, restless, very mild tremors evident. Psychiatric: Affect appears fatigued, no acute evidence of depressive or anxiety feelings. Results Lab / Micro Data 07/22/25 00:31 07/22/25 00:31 Labs: Laboratory Results - last 24 hr 07/22/25 00:31: WBC 10.3, RBC 4.36, Hgb 12.9, Hct 39.0, MCV 89.4, MCH 29.6, MCHC 33.1, RDW Std Deviation 43.0, RDW Coeff of [place]an 13.2, Plt Count 348, MPV 8.9, Immature Gran % (Auto) 0.300, Neut % (Auto) 60.1, Lymph % (Auto) 29.7, [place] % (Auto) 8.2, Eos % (Auto) 1.0, Baso % (Auto) 0.7, Absolute Neuts (auto) 6.2, Absolute Lymphs (auto) 3.05, Nucleated RBC % 0, Sodium 137, Potassium 3.9, Chloride 104, Carbon Dioxide 22.2, Anion Gap 11, BUN 11, Creatinine 0.44 L, Estim Creat Clear Calc 171.84, Est GFR (MDRD) Non-Af 132, BUN/Creatinine Ratio 25.5 H, Glucose 95, Calcium 8.3, Serum , Qual NEGATIVE, Ethyl Alcohol 38.8 H 07/22/25 01:00: Urine Opiates Screen NEGATIVE, U Buprenorphine Qual NEGATIVE, Ur Oxycodone Screen NEGATIVE, Urine Methadone Screen NEGATIVE, Urine Fentanyl Screen NEGATIVE, Ur Barbiturates Screen NEGATIVE, Ur Phencyclidine Scrn NEGATIVE, Ur Amphetamines Screen NEGATIVE, U Benzodiazepines Scrn NEGATIVE, Urine Cocaine Screen PRESUMPTIVE POSITIVE, U Cannabinoids Screen PRESUMPTIVE POSITIVE Assessment & Plan Assessment/Plan (1) Alcohol withdrawal: PLAN: Plan The patient is a 30 /o F w/ PMHx: EtOH abuse, Polysubstance abuse (methamphetamine, cocaine), IBS, Tobacco use who presents to the [facility] on 07/22/25 w/ noted acute EtOH withdrawal, onset starting over the last several hours following last EtOH intake evening prior to ED presentation requesting withdrawal treatment/detoxification. #1. Acute EtOH Withdrawal with alcohol abuse: Will admit to [place], routine labs obtained in the ED upon presentation however hepatic profile not obtained, will obtain now. Given interest in sobriety, will initiate and continue on protocol with taper course of Phenobarbital, as needed gabapentin, Catapres, Bentyl, Vistaril, IV fluids, IV antiemetics, Tylenol as needed for pain. Will consult Case management for assistance for transition to next level of rehabilitation care. Mag, phos pending. Maintain on CIWA protocol concurrently. #2. Suspected acute viral syndrome: Patient with notable URI type symptoms with sick contact as well, respiratory viral panel requested. #3. Polysubstance abuse including methamphetamine, cocaine use with desire for clean status: Patient with ongoing methamphetamine, cocaine usage, encourage clean status, as needed regimen as noted above #1, will obtain HIV, hepatitis and syphilis panel. #4. IBS: Depending on symptoms may have loperamide versus Senokot/Colace as well as simethicone if needed. #5. Tobacco Abuse: Encouraged cessation, inpatient consultation per RT, NR if desired. #6. DVT prophylaxis: Low risk for type of presentation, encourage ambulation. Charges/Coding Visit Charges Inpatient E&M: 96546 Init Hosp L3
--- OUTSIDE RECORDS SUMMARY | 2025-07-22 02:26 | XMS RPT_ITS | CCD ---
Author Organization [facility] Care Team Providers Care Dowel Maker Name Role Phone Free, Text Entry Unavailable [...] Jessie Holley MD Primary Care Provider Haagen SOCCER COACH.Christine MURPHY Unavailable Ana SOCCER COACH.Maria Elena MURPHY Unavailable JESSIE HOLLEY Primary Care [...] Test Name Value Interpretation Reference Range Facility [facility] 07-03-2025 CNOV Office Visit ([facility]) -------- JERSEYTIERNEYSACHI ([id number]) 1995 F Date Time Provider Department 07/03/25 4:00 PM LANETTE AMATO During your visit today, we recorded the following information about you: Temperature Pulse Respiration Blood pressure 98.6 degrees 92/minute 18/minute 100/80 Weight 68.5 kg Lanette Amato APRN.PRODUCT SAFETY LEAD 07/03/2025 4:15 PM Signed NECK STRAIN GENERAL [...] you may take acetaminophen, ibuprofen, or naproxen [id number]. Read the instructions and follow any precautions, [...] increasing headaches or difficulty seeing. Lanette Amato APRN.PRODUCT SAFETY LEAD 07/03/2025 4:54 PM Signed URGENT CARE ASHELY [...] oropharyngeal eryth (more content not included)... Normal [facility] CBC WITH AUTO DIFFERENTIALon 05-10-2025 AUTO NRBC 0.0 % Normal [facility] Comment on above: Performed By: #### L [id number] #### LAB [address] [address] Micah James M.D. [id number] AUTO NRBC ABS COUNT 0.00 K/mcL Normal 0.00-0.00 [facility] Comment on above: Performed By: #### L [id number] #### LAB [address] [address] Micah James M.D. [id number] BASOPHILS ABSOLUTE COUNT 0.07 K/mcL Normal 0.00-0.30 [facility] Comment on above: Performed By: #### L [id number] #### LAB [address] [address] Micah James M.D. [id number] Basophils/100 WBC (Bld) 0.8 % [facility] Comment on above: Performed By: #### L [id number] #### LAB [address] [address] Micah James M.D. [id number] Eosinophils (Bld) [#/Vol] 0.09 10*3/uL Normal 0.00-0.50 [facility] Comment on above: Performed By: #### L [id number] #### LAB [address] [address] Micah James M.D. [id number] Eosinophils/100 WBC (Bld) 1.0 % Normal [facility] Comment on above: Performed By: #### L [id number] #### LAB [address] [address] Micah James M.D. [id number] Erythrocyte distribution width (RBC) [Ratio] 13.1 % Normal 11.6-14.8 [facility] Comment on above: Performed By: #### L [id number] #### LAB [address] [address] Micah James M.D. [id number] Hematocrit (Bld) [Volume fraction] 37.1 % Normal 36.0-46.0 [facility] Comment on above: Performed By: #### L [id number] #### LAB [address] [address] Micah James M.D. [id number] Hemoglobin (Bld) [Mass/Vol] 12.3 g/dL Normal 12.0-16.0 [facility] Comment on above: Performed By: #### L [id number] #### LAB [address] [place] [address] Micah James M.D. [id number] IG ABSOLUTE 0.03 K/mcL Normal 0.00-0.30 [facility] Comment on above: Performed By: #### L [id number] #### LAB [address] [place] [address] Micah James M.D. [id number] IG PERCENT 0.30 % Normal [facility] Comment on above: Result Comment: The IG parameter is the percentage of metamyelocytes, myelocytes and promyelocytes. An immature granulocyte count (IG) of 1% or more suggests the possibility of infection, an IG count of 3% is very likely related to an infection. Performed By: #### L [id number] #### LAB [address] [place] [address] Micah James M.D. [id number] Lymphocytes (Bld) [#/Vol] 2.98 10*3/uL Normal 0.90-4.00 [facility] Comment on above: Performed By: #### L [id number] #### LAB [address] [address] Micah James M.D. [id number] Lymphocytes/100 WBC (Bld) 34.5 % Normal [facility] Comment on above: Performed By: #### L [id number] #### LAB [address] [address] Micah James M.D. [id number] MCH (RBC) [Entitic mass] 29.6 pg Normal 26.0-34.0 [facility] Comment on above: Performed By: #### L [id number] #### LAB [address] [address] Micah James M.D. [id number] MCV (RBC) [Entitic vol] 89.4 fL Normal 80.0-100.0 [facility] Comment on above: Performed By: #### L TO1747 #### LAB [address] [address] Micah James M.D. [id number] MEAN CORPUSCULAR HEMOGLOBIN CONC 33.2 g/dL Normal 31.0-37.0 [facility] Comment on above: Performed By: #### L [id number] #### LAB [address] [place] [address] Micah James M.D. [id number] Monocytes (Bld) [#/Vol] 0.86 10*3/uL Normal 0.30-0.90 [facility] Comment on above: Performed By: #### L [id number] #### LAB [address] [place] [address] Micah James M.D. [id number] Monocytes/100 WBC (Bld) 9.9 % Normal [facility] Comment on above: Performed By: #### L [id number] #### LAB [address] [place] [address] Micah James M.D. [id number] NEUTROPHILS ABSOLUTE COUNT 4.62 K/mcL Normal 1.70-7.00 [facility] Comment on above: Performed By: #### L [id number] #### [facility] LAB [address] [address] Micah James M.D. [id number] Neutrophils/100 WBC (Bld) 53.5 % Normal [facility] Comment on above: Performed By: #### L VC1030 #### MH LAB [address] [address] Micah James M.D. [id number] Platelet mean volume (Bld) [Entitic vol] 8.6 fL Low 9.4-12.4 [facility] Comment on above: Performed By: #### L [id number] #### MH LAB [address] [address] Micah James M.D. [id number] Platelets (Bld) [#/Vol] 388 10*3/uL Normal 150-400 [facility] Comment on above: Performed By: #### L [id number] #### MH LAB [address] [address] Micah James M.D. [id number] RBC (Bld) [#/Vol] 4.15 10*6/uL Normal 4.00-5.20 [facility] Comment on above: Performed By: #### L [id number] #### MH LAB [address] [address] Micah James M.D. [id number] WBC (Bld) [#/Vol] 8.65 10*3/uL Normal 4.50-11.00 [facility] Comment on above: Performed By: #### L [id number] #### MH LAB [address] [address] Micah James M.D. [id number] COMPREHENSIVE METABOLIC PANE Mike 05-10-2025 Albumin [Mass/Vol] 3.7 g/dL Normal 3.2-5.2 [facility] Comment on above: Order Comment: [facility] has implemented the eGFR calculation approach that does not have a coefficient for race that conforms to the NKF-ASN Task Force Recommendations. Performed By: #### 4 6126 #### LAB [address] [address] Micah James M.D. [id number] ALP [Catalytic activity/Vol] 59 U/L Normal 40-140 [facility] Comment on above: Order Comment: [facility] has implemented the eGFR calculation approach that does not have a coefficient for race that conforms to the NKF-ASN Task Force Recommendations. Performed By: #### 4 6126 #### LAB [address] [address] Mciah James M.D. [id number] ALT [Catalytic activity/Vol] 15 U/L Normal 0-35 U/L [facility] Comment on above: Order Comment: [facility] has implemented the eGFR calculation approach that does not have a coefficient for race that conforms to the NKF-ASN Task Force Recommendations. Performed By: #### 4 6126 #### LAB [address] [address] Micah James M.D. [id number] Anion gap [Moles/Vol] 13 mmol/L Normal 10-20 [facility] Comment on above: Order Comment: [facility] has implemented the eGFR calculation approach that does not have a coefficient for race that conforms to the NKF-ASN Task Force Recommendations. Performed By: #### 4 6126 #### LAB [address] [address] Micah James M.D. [id number] AST [Catalytic activity/Vol] 16 U/L Normal 0-35 U/L [facility] Comment on above: Order Comment: [facility] has implemented the eGFR calculation approach that does not have a coefficient for race that conforms to the NKF-ASN Task Force Recommendations. Performed By: #### 4 6126 #### LAB [address] [address] Micah James M.D. [id number] Bilirubin [Mass/Vol] 0.6 mg/dL Normal 0.0-1.3 [facility] Comment on above: Order Comment: [facility] has implemented the eGFR calculation approach that does not have a coefficient for race that conforms to the NKF-ASN Task Force Recommendations. Performed By: #### 4 6126 #### LAB [address] [place], [place] [address] Micah James M.D. [id number] Calcium [Mass/Vol] 8.6 mg/dL Normal 8.4-10.2 [facility] Comment on above: Order Comment: [facility] has implemented the eGFR calculation approach that does not have a coefficient for race that conforms to the NKF-ASN Task Force Recommendations. Performed By: #### 4 6126 #### LAB [address] [id number] Micah James M.D. [id number] Chloride [Moles/Vol] 107 mmol/L Normal 98-108 [facility] Comment on above: Order Comment: [facility] has implemented the eGFR calculation approach that does not have a coefficient for race that conforms to the NKF-ASN Task Force Recommendations. Performed By: #### 4 6126 #### LAB [address] [address] Micah James M.D. [id number] Creatinine [Mass/Vol] 0.55 mg/dL Normal 0.40-1.10 [facility] Comment on above: Order Comment: [facility] has implemented the eGFR calculation approach that does not have a coefficient for race that conforms to the NKF-ASN Task Force Recommendations. Performed By: #### 4 6126 #### LAB [address] [address] Micah James M.D. [id number] EGFR 125 mL/min/1.73 m2 Normal >=60 [facility] Comment on above: Order Comment: [facility] has implemented the eGFR calculation approach that does not have a coefficient for race that conforms to the NKF-ASN Task Force Recommendations. Result Comment: Lissa mated GFR was calculated using the 2020 CKD-EPI creatinine equation. Performed By: #### 4 6126 #### LAB [address] [address] Micah James M.D. [id number] Glucose [Mass/Vol] 92 mg/dL Normal 65-99 [facility] Comment on above: Order Comment: [facility] has implemented the eGFR calculation approach that does not have a coefficient for race that conforms to the NKF-ASN Task Force Recommendations. Performed By: #### 4 6126 #### [facility] LAB [address] [address] Micah James M.D. [id number] HCO3 (Bld) [Moles/Vol] 23 mmol/L Normal 21-32 [facility] Comment on above: Order Comment: [facility] has implemented the eGFR calculation approach that does not have a coefficient for race that conforms to the NKF-ASN Task Force Recommendations. Performed By: #### 4 6126 #### LAB [address] [address] Micah James M.D. [id number] Potassium [Moles/Vol] 3.5 mmol/L Normal 3.5-5.1 [facility] Comment on above: Order Comment: [facility] has implemented the eGFR calculation approach that does not have a coefficient for race that conforms to the NKF-ASN Task Force Recommendations. Performed By: #### 4 6126 #### LAB [address] [address] Micah James M.D. [id number] Protein [Mass/Vol] 5.9 g/dL Low 6.0-8.0 [facility] Comment on above: Order Comment: [facility] has implemented the eGFR calculation approach that does not have a coefficient for race that conforms to the NKF-ASN Task Force Recommendations. Performed By: #### 4 6126 #### [facility] LAB [address] [address] Micah James M.D. [id number] Sodium [Moles/Vol] 139 mmol/L Normal 135-145 [facility] Comment on above: Order Comment: [facility] has implemented the eGFR calculation approach that does not have a coefficient for race that conforms to the NKF-ASN Task Force Recommendations. Performed By: #### 4 6126 #### LAB [address] [place], [place] [address] Micah James M.D. [id number] Urea nitrogen [Mass/Vol] 10 mg/dL Normal 8-25 [facility] Comment on above: Order Comment: [facility] has implemented the eGFR calculation approach that does not have a coefficient for race that conforms to the NKF-ASN Task Force Recommendations. Performed By: #### 4 6126 #### LAB [address] [address] Micah James M.D. [id number] Urea nitrogen/Creatinine [Mass ratio] 18.2 mg/mg Normal 10.0-20.0 [facility] Comment on above: Order Comment: [facility] has implemented the eGFR calculation approach that does not have a coefficient for race that conforms to the NKF-ASN Task Force Recommendations. Performed By: #### 4 6126 #### LAB [address] [address] Micah James M.D. [id number] CT CERVICAL SPINE WITHOUT CO NTRASTon 05-10-2025 [...] may relate to positioning or muscle spasm. /[facility] Workstation ID: [id number] Dictated by: EDWIN VAIL on ThuMay 10, 2025 10:31:33 AM EDT Transcribed by: KRISTIN VARGAS on ThuMay 10, 2025 10:34:53 AM EDT Finalized by: EDWIN VAIL on ThuMay 10, 2025 10:12:29 PM EDT [facility] Comment on above: Order Comment: Injur [...] IMPRESSION: No intracranial hemorrhage or mass effect. [facility] Workstation ID: [id number] Dictated by: EDWIN VAIL on ThuMay 10, 2025 10:27:32 AM EDT Transcribed by: BUCK BURKS on ThuMay 10, 2025 10:28:50 AM EDT Finalized by: EDWIN VAIL on ThuMay 10, 2025 10:11:01 PM EDT [facility] Comment on above: Order Comment: Injur y/Trauma or Illness?:Injury/Trauma How long have you had these symptoms (acute/chronic)?:Acute Reason for exam?:head injury Type of Exam?:Initial Mechanism of injury?:PT BROUGHT IN BY EMS AFTER SHE CALLED WHEN SHE WOKE UP FEELING CLOUDY SHE STATES SHE FELL AND HIT HER HEAD DRUGS OF ABUSE SCREEN, URINE on 05-10-2025 AMPHETAMINE SCREEN, URINE Positive Abnormal None Detected [facility] Comment on above: Order Comment: Scree n results should be used for treatment purposes only. Specimen will be kept for 2 weeks, if the sample is adequate. Confirmation testing can be initiated by calling the lab within 2 weeks. Result Comment: Urin e Amphetamine Cutoff: < 1000 ng/mL = None Detected Performed By: #### 4 6965 #### LAB [address] [address] Micah James M.D. [id number] BARBITURATE SCREEN URINE Not detected Normal None Detected [facility] Comment on above: Order Comment: Scree n results should be used for treatment purposes only. Specimen will be kept for 2 weeks, if the sample is adequate. Confirmation testing can be initiated by calling the lab within 2 weeks. Result Comment: Urin e Barbiturates Cutoff: < 200 ng/mL = None Detected Performed By: #### 4 6965 #### MH LAB [address] [address] Micah James M.D. [id number] BENZODIAZEPINE SCREEN, URINE Not detected Normal None Detected [facility] Comment on above: Order Comment: Scree n results should be used for treatment purposes only. Specimen will be kept for 2 weeks, if the sample is adequate. Confirmation testing can be initiated by calling the lab within 2 weeks. Result Comment: Urin e Benzodiazepine Cutoff: < 200 ng/mL = None Detected Performed By: #### 4 6965 #### MH LAB [address] [address] Micah James M.D. [id number] BUPRENORPHINE, URINE Not detected Normal None Detected [facility] Comment on above: Order Comment: Scree n results should be used for treatment purposes only. Specimen will be kept for 2 weeks, if the sample is adequate. Confirmation testing can be initiated by calling the lab within 2 weeks. Result Comment: Urin e Buprenorphine Cutoff: < 5 ng/mL = None Detected Performed By: #### 4 6965 #### LAB [address] [place] [address] Micah James M.D. [id number] CANNABINOID SCREEN URINE Positive Abnormal None Detected [facility] Comment on above: Order Comment: Scree n results should be used for treatment purposes only. Specimen will be kept for 2 weeks, if the sample is adequate. Confirmation testing can be initiated by calling the lab within 2 weeks. Result Comment: Urin e Cannabinoids Cutoff: < 50 ng/mL = None Detected Performed By: #### 4 6965 #### MH LAB [address] [address] Micah James M.D. [id number] COCAINE, SCREEN URINE Not detected Normal None Detected [facility] Comment on above: Order Comment: Scree n results should be used for treatment purposes only. Specimen will be kept for 2 weeks, if the sample is adequate. Confirmation testing can be initiated by calling the lab within 2 weeks. Result Comment: Urin e Cocaine Cutoff: < 300 ng/mL = None Detected Performed By: #### 4 6965 #### LAB [address] [place] [address] Micah James M.D. [id number] FENTANYL, URINE Not detected Normal None Detected [facility] Comment on above: Order Comment: Scree n results should be used for treatment purposes only. Specimen will be kept for 2 weeks, if the sample is adequate. Confirmation testing can be initiated by calling the lab within 2 weeks. Result Comment: Urin e Fentanyl Cutoff: < 1 ng/mL = None Detected Performed By: #### 4 [id number] #### MH LAB [address] [address] Micah James M.D. [id number] METHADONE SCREEN, URINE Not detected Normal None Detected [facility] Comment on above: Order Comment: Scree n results should be used for treatment purposes only. Specimen will be kept for 2 weeks, if the sample is adequate. Confirmation testing can be initiated by calling the lab within 2 weeks. Result Comment: Urin e Methadone Cutoff: < 300 ng/mL = None Detected Performed By: #### 4 6965 #### MH LAB [address] [place], [place] [address] Micah James M.D. [id number] OPIATE SCREEN URINE Not detected Normal None Detected [facility] Comment on above: Order Comment: Scree n results should be used for treatment purposes only. Specimen will be kept for 2 weeks, if the sample is adequate. Confirmation testing can be initiated by calling the lab within 2 weeks. Result Comment: Urin e Opiates Cutoff: < 300 ng/mL = None Detected Performed By: #### 4 6965 #### LAB [address] [place], [place] [address] Micah James M.D. [id number] OXYCODONE SCREEN, URINE Not detected Normal None Detected [facility] Comment on above: Order Comment: Scree n results should be used for treatment purposes only. Specimen will be kept for 2 weeks, if the sample is adequate. Confirmation testing can be initiated by calling the lab within 2 weeks. Result Comment: Urin e Oxycodone Cutoff: < 100 ng/mL = None Detected Performed By: #### 4 [id number] #### LAB [address] [place], [place] [address] Micah James M.D. [id number] ED Prov Noteon 05-10-2025 ED Prov Note [facility] EMERGENCY DEPARTMENT EMANI NOTE: NAME: Sachi Mckay CSN: [id number] 30 y.o. PCP: No, Physician History: Chief Complaint: No chief complaint on file. HPI: The history was obtained from the patient. Sachi is a 30 y.o. female who presents with a chief complaint of No chief complaint on file.. Patient states that she stained a fall while she was walking to the [employer] store. No chest pain or difficulty breathing. [...] All other components within normal limits Narrative: [facility] has implemented the eGFR calculation [...] Procedure Abnormality Status --------- ------ CBC Auto Differential[[id number]] Abnormal Final result Please view results for these tests on the individual orders. CT Head Or Brain Without Contrast Final Result No intracranial hemorrhage or mass effect. /[facility] Workstation ID: [id number] CT Cervical Spine Without Contrast Final Result No acute fracture or traumatic malalignment. Nonspecific straightening of the cervical lordosis. Findings may relate to positioning or muscle spasm. /[facility] Workstation ID: [id number] ED Course / Medical Decision Making: I did personally review Sachi's past medical history, surgical history, social history, as well as family history (when relevant). In this case, I also oversaw the her drug management by reviewing her medication list, allergy list, as well as the medications (more content not included)... Normal [facility] HCG, SERUM, QUALITATIVEon BETA-HCG QUAL BLOOD Negative Normal Negative [facility] Comment on above: Order Comment: Negat natanael: The result is less than or equal to 5 mIU/mL of HCG. Performed By: #### 4 5826 #### LAB [address] [place], [place] [address] Micah James M.D. [id number] LIPASEon 05-10-2025 Lipase [Catalytic activity/Vol] 20 U/L Normal 15-65 [facility] Comment on above: Performed By: #### 4 6086 #### LAB [address] [place], [place] [address] Micah James M.D. [id number] URINALYSISon 05-10-2025 BACTERIA, URINE None Seen Normal None Seen [facility] Comment on above: Order Comment: Micro scopic examination is performed on all urinalysis samples and only positive findings are reported. The test for blood on the chemical analytic portion of urinalysis may also be positive due to hemoglobinuria and myoglobinuria and if red blood cells are present they are quantified by microscopic examination. Performed By: #### 4 6625 #### LAB [address] [place] [address] Micah James M.D. [id number] BILIRUBIN, URINE Negative Normal Negative [facility] Comment on above: Order Comment: Micro scopic examination is performed on all urinalysis samples and only positive findings are reported. The test for blood on the chemical analytic portion of urinalysis may also be positive due to hemoglobinuria and myoglobinuria and if red blood cells are present they are quantified by microscopic examination. Performed By: #### 4 6625 #### LAB [address] [place] [address] Micah James M.D. [id number] BLOOD, URINE Negative Normal Negative [facility] Comment on above: Order Comment: Micro scopic examination is performed on all urinalysis samples and only positive findings are reported. The test for blood on the chemical analytic portion of urinalysis may also be positive due to hemoglobinuria and myoglobinuria and if red blood cells are present they are quantified by microscopic examination. Performed By: #### 4 6625 #### LAB [address] [address] Micah James M.D. [id number] Clarity (U) Clear Normal Clear [facility] Comment on above: Order Comment: Micro scopic examination is performed on all urinalysis samples and only positive findings are reported. The test for blood on the chemical analytic portion of urinalysis may also be positive due to hemoglobinuria and myoglobinuria and if red blood cells are present they are quantified by microscopic examination. Performed By: #### 4 6625 #### LAB [address] [address] Micah James M.D. [id number] Color (U) Yellow Normal Colorless, Yellow [facility] Comment on above: Order Comment: Micro scopic examination is performed on all urinalysis samples and only positive findings are reported. The test for blood on the chemical analytic portion of urinalysis may also be positive due to hemoglobinuria and myoglobinuria and if red blood cells are present they are quantified by microscopic examination. Performed By: #### 4 6625 #### LAB [address] [address] Micah James M.D. [id number] Glucose Ql (U) Negative Normal Negative [facility] Comment on above: Order Comment: Micro scopic examination is performed on all urinalysis samples and only positive findings are reported. The test for blood on the chemical analytic portion of urinalysis may also be positive due to hemoglobinuria and myoglobinuria and if red blood cells are present they are quantified by microscopic examination. Performed By: #### 4 6625 #### LAB [address] [address] Micah James M.D. [id number] Ketones Ql (U) Negative Normal Negative [facility] Comment on above: Order Comment: Micro scopic examination is performed on all urinalysis samples and only positive findings are reported. The test for blood on the chemical analytic portion of urinalysis may also be positive due to hemoglobinuria and myoglobinuria and if red blood cells are present they are quantified by microscopic examination. Performed By: #### 4 6625 #### LAB [address] [address] Micah James M.D. [id number] Leukocyte esterase Test strip Ql (U) Negative Normal Negative [facility] Comment on above: Order Comment: Micro scopic examination is performed on all urinalysis samples and only positive findings are reported. The test for blood on the chemical analytic portion of urinalysis may also be positive due to hemoglobinuria and myoglobinuria and if red blood cells are present they are quantified by microscopic examination. Performed By: #### 4 6625 #### LAB [address] [address] Micah James M.D. [id number] MUCUS, URINE Few Abnormal None Seen, [facility] – [facility] Comment on above: Order Comment: Micro scopic examination is performed on all urinalysis samples and only positive findings are reported. The test for blood on the chemical analytic portion of urinalysis may also be positive due to hemoglobinuria and myoglobinuria and if red blood cells are present they are quantified by microscopic examination. Performed By: #### 4 6625 #### LAB [address] [address] Micah James M.D. [id number] NITRITE, URINE Negative Normal Negative [facility] Comment on above: Order Comment: Micro scopic examination is performed on all urinalysis samples and only positive findings are reported. The test for blood on the chemical analytic portion of urinalysis may also be positive due to hemoglobinuria and myoglobinuria and if red blood cells are present they are quantified by microscopic examination. Performed By: #### 4 6625 #### LAB [address] [place] [address] Micah James M.D. [id number] pH (U) 7.0 [pH] Normal 5.0-7.0 [facility] Comment on above: Order Comment: Micro scopic examination is performed on all urinalysis samples and only positive findings are reported. The test for blood on the chemical analytic portion of urinalysis may also be positive due to hemoglobinuria and myoglobinuria and if red blood cells are present they are quantified by microscopic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 Bimalleolar ankle fracture a cute Bimalleolar ankle fracture a cute Bimalleolar ankle fracture a cute [facility] Work Phone: Evaluation note* Diagnosis Acute strain of neck muscle, initial encounter- Primary Muscle spasm Spasm of muscle [facility] Additional Instructions Follow-up with your dentist on the sixth as scheduled.[facility] Work Phone: Hospital Discharge instructions Additional Instructions Please use the medication as directed to help control your symptoms and keep yourself well-hydrated. If you have any further concerns please return to the ER for repeat evaluation [facility] Work Phone: Summary Purpose Family History No Family History Records FoundNo Family History Records FoundNo Family History Records FoundNo Family History Records FoundNo Family History Records Found Advance Directives Advance Directive Response Recorded Date/ Time Living Will No March 28, 2022 1 1:40pm Power of Music Composer No March 28, 2022 11:40pm Advance Directive Response Recorded Date/ Time Living Will No February 16, 2023 12:20pm Power of Music Composer No February 16 12:20pm Advance Directive Response Recorded Date/ Time Living Will No February 17, 2023 2:32pm Power of Music Composer No February 17 2:32pm Advance Directive Response Recorded Date/ Time Living Will No March 06, 2023 1:41am Power of Music Composer No March 06 1:41am Advance Directive Response Recorded Date/ Time Living Will No March 06, 2023 10:38am Power of Music Composer No March 06 10:38am Advance Directive Response Recorded Date/ Time Living Will No March 10, 2023 8:38am Power of Music Composer No March 10 8:38am Advance Directive Response Recorded Date/ Time Living Will No August 14, 2023 2:26am Power of Music Composer No July 2:26am Chief Complaint and Reason [...] section and content) DATE CREATED AUTHOR 03/20/2021 [facility] DATE CREATED AUTHOR AUTHOR'S ORGANIZ ATION 04/07/[address] [facility] DATE CREATED AUTHOR AUTHOR'S ORGANIZ ATION 05/30/2024 [facility] DATE CREATED AUTHOR AUTHOR'S ORGANIZ ATION 06/20/2025 [facility] DATE CREATED AUTHOR AUTHOR'S ORGANIZ ATION 07/04/2025 [facility] Goals (unrecognized section and content) Goals may [...] or prosecute any alcohol or drug abuse patient.[facility] the event this information is protected by the Federal Confidentiality of Alcohol and Drug Abuse Patient Records regulations: The Federal rules restrict any use of the information to criminally investigate or prosecute any alcohol or drug abuse patient.[facility] the event this information is protected by the Federal Confidentiality of Alcohol and Drug Abuse Patient Records regulations: The Federal rules restrict any use of the information to criminally investigate or prosecute any alcohol or drug abuse patient.[facility] the event this information is protected by the Federal Confidentiality of Alcohol and Drug Abuse Patient Records regulations: The Federal rules restrict any use of the information to criminally investigate or prosecute any alcohol or drug abuse patient.[facility] the event this information is protected by the Federal Confidentiality of Alcohol and Drug Abuse Patient Records regulations: The Federal rules restrict any use of the information to criminally investigate or prosecute any alcohol or drug abuse patient.[facility] the event this information is protected by the Federal Confidentiality of Alcohol and Drug Abuse Patient Records regulations: The Federal rules restrict any use of the information to criminally investigate or prosecute any alcohol or drug abuse patient.[facility] the event this information is protected by the Federal Confidentiality of Alcohol and Drug Abuse Patient Records regulations: The Federal rules restrict any use of the information to criminally investigate or prosecute any alcohol or drug abuse patient.[facility] Reason for Visit (unrecogniz ed section and content) Reason Comments Missed Appointment Reason Comments Early OB spotting Reason Comments Care Reason Comments Orders Reason Comments Results Reason Comments HCG Reason Comments Neck Pain Right shoulder pain x 2 days Care Teams (unrecognized sec tion and content) Dowel Maker Relationship Specialty Start Date End Date Jessie Holley MD [address] [place] [address] PCP - General Internal Medicine 12/08/22 Dowel Maker Relationship Specialty Start Date End Date Jessie Holley MD [address] [place] [address] PCP - General Internal Medicine 12/08/22 Team [...] Tiburcio Andes , DO Emergency Provider Active Dowel Maker Relationship Specialty Start Date End Date Jessie Holley MD [address] [place], [place] [id number] PCP - General Internal Medicine 12/08/22 Christine Price APRN.PRODUCT SAFETY LEAD [address] [place], [place] [id number] Cott[employer] Operator Family [facility] 10/24/24 Maria Elena Perez SOCCER COACH.PRODUCT SAFETY LEAD [address] [place], [place] [id number] [facility] 10/24/24 Dowel Maker Relationship Specialty Start Date End Date No, Physician [facility] PCP - General 05/10/25 FOR RECORDS PERTAINING [...] BE BASED ON THE PRIMARY CLINICAL RECORDS. [facility]. provides no warranty or guarantee of the accuracy or completeness of information in this document.
[2025-07-22 02:31] LABS: Magnesium 2.0 mg/dL (1.5-2.2)
[2025-07-22 02:50] LABS: AST(SGOT) 18 U/L (<=31); Alanine Aminotransfer ALT/SGPT 11 U/L (<=34); Albumin, Serum 3.9 g/dL (3.5-5.0); Alkaline Phosphatase 78 U/L (35-104); Bilirubin, Direct < 0.08 mg/dL (0.00-0.30); Globulin 2.9 g/dL (2.2-4.2)
[2025-07-22 03:48] LABS: Hepatitis B Surface Antigen Nonreactive (Nonreactive); Hepatitis C Antibody Nonreactive (Nonreactive)
[2025-07-22] MEDS: Lactated Ringers 1,000 ML 125 ML IV (04:00)
[2025-07-22] MEDS: 0.9% Saline Lock 10 ML Syringe IV (04:01)
[2025-07-22 04:33] LABS: HIV Nonreactive (Nonreactive); Syphilis Antibodies Nonreactive (Nonreactive)
[2025-07-22] MEDS: Nicotine (PBKC) 21 MG Patch TD (09:33)
[2025-07-22] MEDS: Thiamine Hydrochloride 100 MG Tablet PO (09:33)
--- NOTE | 2025-07-22 14:20 | PN_ITS ---
Subjective Subjective Patient seen and examined with her nurse by her bedside. She did complain of some nausea associated vomited today. She admitted some mild shakes and tremors and felt like she was going to withdrawal. Review of systems otherwise negative. She has minimal dynamically stable. Objective Data Objective Data Vital Signs: Vital Signs Temp Pulse Resp BP Pulse Ox O2 Del Method 98.3 F 83 16 117/79 98 Room Air 07/22/25 10:00 07/22/25 10:00 07/22/25 10:00 07/22/25 10:00 07/22/25 10:00 07/22/25 10:00 Oxygen Delivery Method Room Air Weight: 155 lb 3.287 oz Body Mass Index (BMI) 25.0 Intake & Output: Intake and Output for Last 24 Hours 07/20/25 07/21/25 07/22/25 23:59 23:59 23:59 Intake Total 1999 / 1999 Output Total 200 / 200 Balance 1800 / 1800 Lab / Micro Data 07/22/25 00:31 07/22/25 00:31 Labs: Laboratory Results - last 24 hr 07/22/25 00:31: WBC 10.3, RBC 4.36, Hgb 12.9, Hct 39.0, MCV 89.4, MCH 29.6, MCHC 33.1, RDW Std Deviation 43.0, RDW Coeff of Rowan 13.2, Plt Count 348, MPV 8.9, Immature Gran % (Auto) 0.300, Neut % (Auto) 60.1, Lymph % (Auto) 29.7, Phillips % (Auto) 8.2, Eos % (Auto) 1.0, Baso % (Auto) 0.7, Absolute Neuts (auto) 6.2, Absolute Lymphs (auto) 3.05, Nucleated RBC % 0, Sodium 137, Potassium 3.9, Chloride 104, Carbon Dioxide 22.2, Anion Gap 11, BUN 11, Creatinine 0.44 L, Estim Creat Clear Calc 171.84, Est GFR (MDRD) Non-Af 132, BUN/Creatinine Ratio 25.5 H, Glucose 95, Calcium 8.3, Phosphorus 3.2, Magnesium 2.0, Total Bilirubin < 0.15, Direct Bilirubin < 0.08, AST 18, ALT 11, Alkaline Phosphatase 78, Total Protein 6.8, Albumin 3.9, Globulin 2.9, Serum , Qual NEGATIVE, Ethyl Alcohol 38.8 H, Syphilis Total Ab Nonreactive, Hep Bs Antigen Nonreactive, Hep Bs Antibody REAC, Hepatitis C Antibody Nonreactive, HIV 1&2 Antibody Nonreactive 07/22/25 01:00: Urine Opiates Screen NEGATIVE, U Buprenorphine Qual NEGATIVE, Ur Oxycodone Screen NEGATIVE, Urine Methadone Screen NEGATIVE, Urine Fentanyl Screen NEGATIVE, Ur Barbiturates Screen NEGATIVE, Ur Phencyclidine Scrn NEGATIVE, Ur Amphetamines Screen NEGATIVE, U Benzodiazepines Scrn NEGATIVE, Urine Cocaine Screen PRESUMPTIVE POSITIVE, U Cannabinoids Screen PRESUMPTIVE POSITIVE Micro: Microbiology 07/22/25 04:10 Mucosa - Nasopharyngeal Respiratory Panel (PCR) - Final Physical Exam Const alert, oriented x3 and no apparent distress General Appearance: cooperative HEENT normocephalic, head/scalp atraumatic, moist oral mucous membranes and oropharynx normal Eyes PERRL and EOMs intact bilaterally Neck supple Lymph Lymphatic: no lymphedema noted Resp normal respiratory effort, normal air movement and clear to auscultation bilaterally Cardio regular rate, regular rhythm, S1 normal heart sound and S2 normal heart sound GI normal to inspection, nondistended, normoactive bowel sounds, soft to palpation and non-tender Extremity normal capillary refill, no clubbing, cyanosis or edema and no calf tenderness General Extremity: no tenderness to palpation of joints or extremities Neuro CN's II-XII intact bilaterally, no focal motor deficits, no sensory deficits noted and deep tendon reflexes 2+ bilaterally Motor Exam: general weakness Psych thought process normal, cooperative and affect normal Appearance: appropriate Assessment & Plan Assessment/Plan (1) Alcohol withdrawal: PLAN: Plan #Acute alcohol withdrawal * on alcohol withdrawal protocol with phenobarbital * on thiamine, folic acid and multivite * adjunctive meds for symptomatic relief. * * #Probable acute viral syndrome: respiratory panel pending. Stable. On room air. #Histoyr of polysubstance abuse: urine tox was positive for metamphetamines and cocaine. Counseled to quit. #Irritable bowel syndrome: on loperamide vs colace depending on her symptoms. #Nicotine dependence: counseled to quit. Nicotine patch prn #DVT prophylaxis: low risk, encourage to ambulate. Charges/Coding Visit Charges Inpatient E&M: 94136 Subs Hosp L2
--- NOTE | 2025-07-22 15:02 | ADDICTION ---
Pt was met with for RAMP assessment and to complete the AUDIT, DUDIT, MSE, ASAM, and DC Plan. Pt was engaged in psychoeducation on addiction and tx options. Pt reports that she has thought some about entering residential but she has current barriers related to childcare. She was informed on [facility] where children are permitted to live w/mom's in tx, and pt agreed to keep it in mind. Pt states she is willing to explore IOP and she is willing to f/u with [facility] for individual counseling. Pt is scheduled with counselor Kiya at [facility] on Thursday07/24/25 but if pt is not [facility] from [facility] by then, pt can call to reschedule. Pt is choosing to DC home to f/u with IOP and therapy w/[facility].
[2025-07-22] MEDS: hydrOXYzine PAM 25 MG Capsule 50 MG PO (23:08)
[2025-07-23 03:18] VITALS: BP 115/79; PULSE 66; RESP 18; TEMP 36.9; O2SAT 99
[2025-07-23 06:53] VITALS: BP 118/72; PULSE 68; RESP 18; TEMP 37; O2SAT 98
[2025-07-23 07:22] VITALS: O2SAT 95
[2025-07-23] MEDS: Nicotine (PBKC) 21 MG Patch TD (08:56)
[2025-07-23] MEDS: Thiamine Hydrochloride 100 MG Tablet PO (08:56)
[2025-07-23 10:00] VITALS: BP 99/72; PULSE 90; RESP 18; TEMP 36.6; O2SAT 100
--- NOTE | 2025-07-23 13:09 | NURSING ---
Walked in to find patient thinking belongings out of belonging box. when this nurse asked pt what was going on pt states that she is leaving. AMA paper provided, pt signed the AMA paper. Dr. Feliz Notified.
--- NOTE | 2025-07-23 14:13 | DS.PCM_ITS ---
Providers Date of Admission: 07/22/25 Date of Discharge: 07/23/25 Primary Care Physician: No Primary Care Phys Reason For Visit: ETOH WITHDRAWAL/DETOX Diagnosis Discharge Diagnosis (1) Alcohol withdrawal: Status: Acute Code(s): F10.939 - Alcohol use, unspecified with withdrawal, unspecified Plan #Acute alcohol withdrawal * on alcohol withdrawal protocol with phenobarbital * on thiamine, folic acid and multivite * adjunctive meds for symptomatic relief. * * #Probable acute viral syndrome: respiratory panel pending. Stable. On room air. #Histoyr of polysubstance abuse: urine tox was positive for metamphetamines and cocaine. Counseled to quit. #Irritable bowel syndrome: on loperamide vs colace depending on her symptoms. #Nicotine dependence: counseled to quit. Nicotine patch prn #DVT prophylaxis: low risk, encourage to ambulate. Medications at Discharge Home Medications NK 07/21/25 Hospital Course Operations None Procedures None Summary of Care Provided Minutes Spent on Discharge: 45 Hospital Course: Patient is a 31-year-old female with past medical history of polysubstance abuse including alcohol, methamphetamine and cocaine and irritable bowel syndrome as well as nicotine dependence was admitted to the ED on 07/22/2025 with complaint of acute alcohol withdrawal. Her last alcohol intake was the evening before admission around 5 PM. She usually drank 6-12 twisted teas and beers daily. She complained of nausea and vomiting as well as dry heaves and rhinorrhea. She says she and her boyfriend have both had upper respiratory type symptoms a few days prior to admission. She came into the ED asking for help with withdrawal and detox. CBC and BMP were unremarkable. Urine tox was positive for cocaine and cannabinoids. Serum alcohol level was 38.8. He was admitted and managed for acute alcohol withdrawal. She was placed on alcohol withdrawal protocol with phenobarbital. She was tolerating the withdrawal protocol and doing well. However she decided to sign out AGAINST MEDICAL ADVICE on 07/23/2025. Patient was seen on the morning of 07/23/2025 in the presence of her nurse. He had no complaints then and given medication she was signed out AGAINST MEDICAL ADVICE. She felt well and was tolerating the detox process well. Review of systems otherwise negative. However later in the day she decided to sign out AGAINST MEDICAL ADVICE. Physical Exam Const alert, oriented x3 and no apparent distress General Appearance: cooperative and comfortable HEENT normocephalic, head/scalp atraumatic, hearing grossly normal bilaterally, moist oral mucous membranes and oropharynx normal Mouth: oral and palatal mucosa normal Eyes PERRL and EOMs intact bilaterally Neck supple Lymph Lymphatic: no lymphedema noted Resp normal respiratory effort, normal air movement and clear to auscultation bilaterally Cardio regular rate, regular rhythm, S1 normal heart sound and S2 normal heart sound GI normal to inspection, nondistended, normoactive bowel sounds, soft to palpation and non-tender Extremity normal to inspection, full ROM, normal capillary refill, no clubbing, cyanosis or edema and no calf tenderness General Extremity: no tenderness to palpation of joints or extremities Skin no rashes or lesions noted Neuro oriented x3, CN's II-XII intact bilaterally, moves all extremities and no focal motor deficits Sensorium / Orientation: awake and alert Motor Exam: general weakness Psych thought process normal, cooperative and affect normal Appearance: appropriate Weight / BMI Weight Weight: 155 lb 3.287 oz Body Mass Index (BMI) 25.0 ABG / Lab / Microbiology Data 07/22/25 00:31 07/22/25 00:31 Microbiology: Microbiology 07/22/25 04:10 Mucosa - Nasopharyngeal Respiratory Panel (PCR) - Final D/C Instructions DC O2, CPAP, BIPAP Needs Home O2 Discharge instructions: No Meaningful Use Info Meaningful Use Meaningful Use Diagnoses (Choose all that apply): None applicable Discharge Plan Admission Admit Date/Time: 07/22/25 01:59 Primary Reason for Your Visit: acute alchohol withdrawal Attending Provider: Roula Feliz Primary Care Provider: Care Physician,No Primary Consulting Providers: Smiley Swift Instructions Patient Instructions: Alcohol Withdrawal: What to Expect, ED Withdrawal Alcohol Discharge Orders/Prescriptions Prescriptions: No Action NK Referrals / Follow Up: Care Physician,No Primary [Primary Care Provider] - Disposition Disposition (needs filled in before D/C Order can be placed): Against Medical Advice Charges/Coding Visit Charges Inpatient E&M: [id number] Disch Hosp >30min
== END 2025-07-23 13:17 | disposition left against medical advice (07) | DRG 770 ==
LOC: ED 07-22 00:47 → MS3 07-22 02:23
PROVIDERS: Admitting Provider Family Medicine; Emergency Provider Emergency Medicine; Visit Provider Student in an Organized Health Care Education/Training Program
DX: F10.139 Alcohol abuse with withdrawal, unspecified (principal); F14.10 Cocaine abuse, uncomplicated; J06.9 Acute upper respiratory infection, unspecified; F17.210 Nicotine dependence, cigarettes, uncomplicated; F15.10 Other stimulant abuse, uncomplicated; K58.9 Irritable bowel syndrome, unspecified; Z53.29 Procedure and treatment not carried out because of patient's decision for other reasons
CPT/HCPCS: 80048; 80076; 80307; 82077; 83735; 84100; 84703; 85025; 86703; 86706; 86780; 86803; 87340; 87633; 93005; 99284; 99406; A4216; J2405